=== PATIENT | male | born 1945 | race Caucasian/White ===

== ENCOUNTER 2019-11-10 12:20 | Emergency (ER) | payer MEDICARE, SELFPAY ==
[2019-11-10 12:27] VITALS: BP 149/88; PULSE 101; RESP 20; TEMP 36.5; O2SAT 94; BMI 29.1
--- NOTE | 2019-11-10 12:45 | ED_ITS ---
Entered by Ania Fagan, acting as scribe for Nov 10, 2019 12:20 HPI - SOB/Dyspnea General: Chief Complaint: General Medical Stated Complaint: sob/welling pockets??? Time Seen by Provider: 11/10/19 12:46 History of Present Illness: HPI Narrative: 74 yo male presents with shortness of breath. Pt states that he also has abd pain and headache. Pt states that when he goes to sleep at night he will wake up every 2 hours drenched in sweat. Pt states that he was placed on Zantac and got a letter of recall. Pt states that he has been getting chest pain everyday for the past few months. Pt states that he quit taking Zantac. Pt states that he quit taking his medication for his diabetes 3 days ago. Pt states that he has headaches, swelling bumps on his arms, bumps in his mouth and ear pain. Associated symptoms: Reports abdominal pain, chest pain, nausea and vomiting; Deny dizziness, extremity pain, fever(s), orthopnea, palpitations, polydipsia, polyuria or syncope Review of Systems Const: Reports: malaise; Denies: fever, chills, body aches or fatigue Eyes: Denies: change in vision or blurry vision ENMT: Denies: throat pain, oral sores/lesions, dental pain, nasal discharge or nasal congestion Card: Reports: chest pain; Denies: palpitations, irregular heart rhythm, edema, syncope, shortness of breath on exertion, shortness of breath when lying down or leg pain with exertion Resp: Denies: shortness of breath, productive cough, non-productive cough or wheezing GI: Reports: abdominal pain, nausea and vomiting; Denies: vomiting blood, coffee grounds in vomit, difficulty swallowing, heartburn/indigestion, diarrhea, constipation, cramping, blood in stool or black tarry stool : Denies: flank pain, difficulty urinating, painful urination, urinary frequency, urinary urgency, urinary incontinence or blood in urine Musc: Denies: neck pain, back pain, extremity pain, extremity swelling, joint pain or joint swelling Skin/Breast: Denies: rash, itching or redness Neuro: Denies: headache, numbness in extremities, weakness in extremities, changes in sensation, lack of coordination, difficulty walking, frequent falls, dizziness, vertigo or confusion Psych: Denies: anxiety, depression, loss of interest, visual hallucinations, auditory hallucinations, suicidal ideation or homicidal ideation Endo: Denies: excessive urination, excessive thirst, tired all the time or cold intolerance [place]/Lymph: Denies: easy bruising, easy bleeding, petechiae, enlarged lymph nodes or tender lymph nodes PFSH ED PFSH: Statuses (acute, chronic, etc) shown below reflect problem list status as previously entered and may not be historically accurate Medical History COPD (chronic obstructive pulmonary disease) (Acute) Diabetes (Acute) Hypertension (Acute) Surgical History H/O hemorrhoidectomy (Acute) H/O hernia repair (Acute) History of carpal tunnel surgery of right wrist (Acute) History of cholecystectomy (Acute) History of testicular surgery (Acute) Hx of tonsillectomy (Acute) Social History Smoking and tobacco status: current every day smoker Physical Exam Const: COMMON NORMALS: average body habitus, oriented x3 and alert GENERAL APPEARANCE: cooperative, comfortable, well kempt and well developed NUTRITIONAL APPEARANCE: not obese ORIENTATION/CONSCIOUSNESS: Yes awake, Yes oriented to person and Yes oriented to place HENMT: COMMON NORMALS: normocephalic, head/scalp atraumatic, EAC's normal, TM's normal bilaterally, external nose normal, moist oral mucous membranes and oropharynx normal HEAD & SCALP: normocephalic and atraumatic NOSE: external nose normal EXTERNAL AUDITORY CANAL: EAC's normal TYMPANIC MEMBRANE: TM's normal bilaterally MOUTH: oral and palatal mucosa normal, lip normal and tongue normal THROAT: posterior oropharynx normal and tonsils normal Eye: COMMON NORMALS: PERRL, EOMs intact bilaterally, conjunctivae normal and no scleral icterus CONJUNCTIVA: Yes conjunctivae normal PUPIL: Yes PERRL Neck/C-Spine: COMMON NORMALS: full ROM, no lymphadenopathy, supple, no meningeal signs and thyroid normal THYROID: thyroid normal and asymmetrical Lymph: LYMPHATIC: no lymphadenopathy noted Resp: COMMON NORMALS: normal respiratory effort, no retractions, no use of accessory muscles and clear to auscultation bilaterally AUSCULTATION: clear to auscultation bilaterally Cardio: COMMON NORMALS: regular rate and regular rhythm RATE: regular rate RHYTHM: regular rhythm HEART SOUNDS: no murmurs GI: COMMON NORMALS: normal to inspection, nondistended, normoactive bowel sounds, soft to palpation and no hepatosplenomegaly PALPATION: Yes soft and Yes no hepatosplenomegaly : COMMON NORMALS: Yes no CVA tenderness BLADDER/KIDNEY EXAM: Yes no CVA tenderness Back/Pelvis: COMMON NORMALS: no CVA tenderness LUMBAR SPINE/LOWER BACK: Yes normal to inspection Extremity: COMMON NORMALS: no clubbing, cyanosis or edema, no calf tenderness and no pedal edema Neuro: COMMON NORMALS: oriented x3 SENSORIUM/ORIENTATION: Yes alert, Yes oriented to person and Yes oriented to place MENINGEAL SIGNS: Yes no meningeal signs Psych: APPEARANCE: Yes well kempt Skin: COMMON NORMALS: no rashes or lesions noted and skin turgor normal GENERAL SKIN EXAM: no rashes or lesions noted and turgor normal Course ED course: Reviewed the findings with patient. He think there is something underlying going on there is nothing acute doing fine at this time I think he does need to be seen by internal medicine have been further evaluation strongly encouraged him to follow-up with his primary care doctor offered to set him up with internal medicine through [facility] [place]. He had hoped to be admitted to have what ever endoscopy and what ever testing done immediately. Reviewed with him that there really was not anything at this point that would require admission but there are further testing that needs to be done offered him referral he declined to follow-up with his primary care doctor return if he has problems Vital Signs: Vital signs: Vital Signs Temperature 97.7 F 11/10/19 12:27 Pulse Rate 700 H 11/10/19 16:42 Respiratory Rate 14 11/10/19 16:42 Blood Pressure 148/85 11/10/19 16:42 Pulse Oximetry 97 11/10/19 16:42 MDM - SOB/Dyspnea Lab Data: Labs: Lab Results 11/10/19 11/10/19 11/10/19 Range/Units 13:42 13:42 13:42 WBC 8.6 (4.0-10.0) 10^3/ uL RBC 4.95 (4.1-5.3) 10^6/u L Hgb 15.8 (11.7-16.6) g/dL Hct 45.9 (42.0-52.0) % MCV 92.7 (80-94) fL MCH 31.9 (28.0-34.0) pg MCHC 34.4 (30.0-36.0) g/dL RDW 12.7 (12.1-15.1) % Plt Count 232 (130-400) 10^3/c mm MPV 10.1 (7.4-10.4) fL Neut % (Auto) 73.1 % Lymph % (Auto) 15.6 % Dukes % (Auto) 8.6 % Eos % (Auto) 2.1 % Baso % (Auto) 0.4 % Neut # (Auto) 6.3 (1.8-7.7) 10^3/u L Lymph # (Auto) 1.3 (0.8-4.8) 10^3/u L Dukes # (Auto) 0.7 (0.2-0.9) 10^3/u L Eos # (Auto) 0.2 (0.0-0.8) 10^3/u L Baso # (Auto) 0.0 (0.0-0.1) 10^3/u L Nucleated RBC % (a uto) 0 % Nucleated RBCs # 0.0 /100WBC Sodium 137 (136-145) mmol/L Potassium 4.1 (3.5-5.1) mmol/L Chloride 96 L (98-107) mmol/L Carbon Dioxide 32 H (22-29) mmol/L Anion Gap 13.1 (5-19) BUN 16 (8-23) mg/dL Creatinine 0.9 (0.7-1.2) mg/dL Glucose 137 H (74-106) mg/dL Calcium 10.0 (8.8-10.2) mg/Dl Total Bilirubin 0.5 (0.15-1.2) mg/dL AST 12 (0-40) U/L ALT 7 (0-41) U/L Alkaline Phosphata se 77 (40-130) IU/L Troponin T Baselin e 15 (0-15) ng/mL Troponin T [address] [place] (0-15) ng/mL Delta Troponin T (0-10) ABS# Total Protein 7.0 (6.6-8.7) g/dL Albumin 4.1 (3.5-5.2) g/dL Globulin 2.9 (1.3-4.6) g/dL Lipase 7 L (13-60) U/L Urine Color (Yellow) Urine Appearance (CLEAR) Urine pH (5-7) Ur Specific Gravit y (1.005-1.030) Urine Protein (Negative) Urine Glucose (UA) (Normal) Urine Ketones (Negative) Urine Occult Blood (Negative) Urine Nitrate (Negative) Urine Bilirubin (NEGATIVE) Urine Urobilinogen (Negative) mg/dL Ur Leukocyte Shama ase (Negative) Urine RBC (0-2) /hpf Urine WBC (0-5) /hpf Ur Squamous Epith Cells (0-5) Urine Bacteria (NONE) Urine Mucus 11/10/19 11/10/19 Range/Units 13:50 15:45 WBC (4.0-10.0) 10^3/ uL RBC (4.1-5.3) 10^6/u L Hgb (11.7-16.6) g/dL Hct (42.0-52.0) % MCV (80-94) fL MCH (28.0-34.0) pg MCHC (30.0-36.0) g/dL RDW (12.1-15.1) % Plt Count (130-400) 10^3/c mm MPV (7.4-10.4) fL Neut % (Auto) % Lymph % (Auto) % Dukes % (Auto) % Eos % (Auto) % Baso % (Auto) % Neut # (Auto) (1.8-7.7) 10^3/u L Lymph # (Auto) (0.8-4.8) 10^3/u L Dukes # (Auto) (0.2-0.9) 10^3/u L Eos # (Auto) (0.0-0.8) 10^3/u L Baso # (Auto) (0.0-0.1) 10^3/u L Nucleated RBC % (a uto) % Nucleated RBCs # /100WBC Sodium (136-145) mmol/L Potassium (3.5-5.1) mmol/L Chloride (98-107) mmol/L Carbon Dioxide (22-29) mmol/L Anion Gap (5-19) BUN (8-23) mg/dL Creatinine (0.7-1.2) mg/dL Glucose (74-106) mg/dL Calcium (8.8-10.2) mg/Dl Total Bilirubin (0.15-1.2) mg/dL AST (0-40) U/L ALT (0-41) U/L Alkaline Phosphata se (40-130) IU/L Troponin T Baselin e (0-15) ng/mL Troponin T [address] [place] 13.53 (0-15) ng/mL Delta Troponin T -1.47 L (0-10) ABS# Total Protein (6.6-8.7) g/dL Albumin (3.5-5.2) g/dL Globulin (1.3-4.6) g/dL Lipase (13-60) U/L Urine Color Yellow (Yellow) Urine Appearance Clear (CLEAR) Urine pH 5.0 (5-7) Ur Specific Gravit y 1.025 (1.005-1.030) Urine Protein Trace (Negative) Urine Glucose (UA) Norm (Normal) Urine Ketones Negative (Negative) Urine Occult Blood Neg (Negative) Urine Nitrate Negative (Negative) Urine Bilirubin Neg (NEGATIVE) Urine Urobilinogen 1 H (Negative) mg/dL Ur Leukocyte Shama ase Negative (Negative) Urine RBC 0-4 H (0-2) /hpf Urine WBC Rare (0-5) /hpf Ur Squamous Epith Cells 0-4 H (0-5) Urine Bacteria Trace (NONE) Urine Mucus 1+ Imaging Data^: CXR: Radiologist's impression: Patient: Jeremías Edouard Unit #: [id number] : 1945 Age/Sex: 74 / M ADM Date: 11/10/19 Loc: ER Room/Bed: Attending Dr: Ordering Provider/Ordering MD: Uriel Velasco DO Date of Service: 11/10/19 Procedure(s): XR chest 1V portable [id number] Accession Number(s): [id number] Report Number: [id number] WS: [id number] PORTABLE CHEST HISTORY: chest pain COMPARISON: 07/28/2019 Pulmonary hyperexpansion with no pneumonia. Subsegmental linear scarring at the lung bases. Similar to the prior study. No pleural effusion or pneumothorax. Cardiac size: Normal. Mediastinum/Aorta: Mild atherosclerosis aorta. RIGHT convex curvature thoracic spine. XR/XR chest 1V portable [id number] IMPRESSION: Chronic emphysema. No acute cardiopulmonary disease. Dictated By: Carmen Brar DO Signed By: Carmen Brar DO Signed Date/Time: 11/10/191351 DD/ 51 Discharge Plan Discharge Patient Disposition: Home, Self-Care Clinical Impression: Chest pain, atypical, Diabetes, COPD (chronic obstructive pulmonary disease), Hypertension, Gastroesophageal reflux disease Condition: Stable Prescriptions: New omeprazole 20 mg capsule,delayed release(DR/EC) 20 mg PO DAILY 28 Days RF: 1 Discontinued ranitidine HCl [Zantac] 150 mg Tablet 150 mg PO BID RF: 0 No Action albuterol sulfate 2.5 mg /3 mL (0.083 %) Solution For Nebulization 2.5 mg INHALATION Q4H PRN (Reason: Shortness Of Breath) RF: 0 [place] 10-325 mg Tablet See Rx Instructions .ROUTE .COMPLEX RF: 0 Aspir-81 81 mg Tablet,Delayed Release (Dr/Ec) 81 mg PO DAILY RF: 0 Flomax 0.4 mg Capsule 0.4 mg PO DAILY RF: 0 Advair Diskus 500-50 mcg/dose Blister With Device 1 inh INHALATION BID RF: 0 Colace 100 mg Capsule 200 mg PO DAILY RF: 0 Singulair 10 mg Tablet 10 mg PO BEDTIME RF: 0 pravastatin 20 mg Tablet 20 mg PO DAILY RF: 0 Miralax 17 gram/dose Powder 17 g PO DAILY PRN (Reason: Constipation) RF: 0 glipizide 5 mg Tablet 5 mg PO BID RF: 0 Januvia 50 mg Tablet 50 mg PO DAILY RF: 0 Combivent Respimat 20-100 mcg/actuation Mist 1 puff INHALATION Q6H PRN (Reason: Shortness Of Breath) RF: 0 Discharge Orders: Discharge Order (Routine); Ordered 11/10/19 Ordered By: Uriel Velasco Referrals: Cornelia Ayala DO [Family Provider] - Discharge Diet: Advance as tolerated Discharge Activity: Increase activity as tolerated Activity Restrictions/Additional Instructions: Management will call to set up a stress test. Stop Zantac start Prilosec follow-up with your regular doctor for further testing including potential endoscopy. Discharge Date/Time: 11/10/19 16:43 Coding Level of Care Code ED Channel Marketing Program Manager for Chg Fwd Exam Problem Focused The documentation recorded by the Rylan sheldon Kialy, accurately reflects the service I personally performed and the decisions made by , Uriel Velasco, Nov 10, 2019 12:20
--- NOTE | 2019-11-10 13:31 | XR_ITS ---
WS: [id number] PORTABLE CHEST HISTORY: chest pain COMPARISON: 07/28/2019 Pulmonary hyperexpansion with no pneumonia. Subsegmental linear scarring at the lung bases. Similar t o the prior study. No pleural effusion or pneumothorax. Cardiac size: Normal. Mediastinum/Aorta: Mild atherosclerosis aorta. RIGHT convex curvature thoracic spine. XR/XR chest 1V portable [id number] IMPRESSION: Chronic emphysema. No acute cardiopulmonary disease.
--- NOTE | 2019-11-10 13:32 | ECG_ITS ---
Measurements Intervals [place] Rate: 73 P: 75 SD: 175 QRS: 78 QRSD: 107 T: 76 QT: 334 QTc: 369 SINUS RHYTHM EARLY REPOLARIZATION [ST ELEVATION WITH NORMALLY INFLECTED T WAVE] Compared to ECG 07/05/2019 16:53:02 Early repolarization now present Atrial abnormality no longer present ST (T wave) deviation no longer present Electronically Signed On 11-10-2019 17:25:53 HOTEL SERVER by Cecil Lu M.D. [id number]
--- NOTE | 2019-11-10 13:45 | PC.NURSE ---
Patient attempting to collect urine sample.
--- NOTE | 2019-11-10 13:47 | PC.NURSE ---
X-ray at bedside for portable chest
[2019-11-10 13:49] LABS: Basophils % 0.4 %; Eosinophils # 0.2 10^3/uL (0.0-0.8); Eosinophils % 2.1 %; Hematocrit 45.9 % (42.0-52.0); Hemoglobin 15.8 g/dL (11.7-16.6); Lymphocytes # 1.3 10^3/uL (0.8-4.8); Lymphocytes % 15.6 %; Mean Corpuscular HGB Conc 34.4 g/dL (30.0-36.0); Mean Corpuscular Hemoglobin 31.9 pg (28.0-34.0); Mean Corpuscular Volume 92.7 fL (80-94); Mean Platelet Volume 10.1 fL (7.4-10.4); Monocytes # 0.7 10^3/uL (0.2-0.9); Monocytes % 8.6 %; Neutrophils # 6.3 10^3/uL (1.8-7.7); Neutrophils % 73.1 %; Nucleated Red Blood Cells % 0 %; Platelet Count 232 10^3/cmm (130-400); Red Blood Count 4.95 10^6/uL (4.1-5.3); Red Cell Distribution Width 12.7 % (12.1-15.1); White Blood Count 8.6 10^3/uL (4.0-10.0)
[2019-11-10 14:08] LABS: Alanine Aminotransferase 7 U/L (0-41); Albumin Level 4.1 g/dL (3.5-5.2); Alkaline Phosphatase 77 IU/L (40-130); Anion Gap 13.1 (5-19); Aspartate Amino Transferase 12 U/L (0-40); Blood Urea Nitrogen 16 mg/dL (8-23); Carbon Dioxide 32 mmol/L (22-29); Chloride 96 mmol/L (98-107); Globulin 2.9 g/dL (1.3-4.6); Glucose 137 mg/dL (74-106); Lipase 7 U/L (13-60); Potassium 4.1 mmol/L (3.5-5.1); Sodium 137 mmol/L (136-145); Total Bilirubin 0.5 mg/dL (0.15-1.2)
[2019-11-10 14:10] LABS: Troponin(5th) Baseline 15 ng/mL (0-15)
[2019-11-10 14:18] LABS: Add Urine Microscopic? YES; Bilirubin Urine Neg (NEGATIVE); Blood Urine Neg (Negative); Glucose Urine UA Norm (Normal); Ketones Urine Negative (Negative); Leukocyte Esterase Urine Negative (Negative); Nitrate Urine Negative (Negative); Protein Urine Trace (Negative); Specific Gravity, Urine 1.025 (1.005-1.030); Urine Appearance Clear (CLEAR); Urine Color Yellow (Yellow); Urobilinogen Urine 1 mg/dL (Negative)
[2019-11-10 14:35] VITALS: BP 125/69; PULSE 76; O2SAT 93
[2019-11-10 14:39] LABS: Add Urine Culture? No; Bacteria Urine TRACE; Mucus Urine 1+; RBC Urine 0-4 /hpf (0-2); Squamous Epithelial Cell Urine 0-4 (0-5); WBC Urine RARE /hpf (0-5)
[2019-11-10 16:05] LABS: Troponin 5 2HR 13.53 ng/mL (0-15)
[2019-11-10 16:29] LABS: Troponin 5 2HR Delta -1.47 ABS# (0-10)
[2019-11-10 16:42] VITALS: BP 148/85; PULSE 700; RESP 14; O2SAT 97
--- NOTE | 2019-11-11 11:21 | DCPLANNER ---
manager target had message to schedule an out patient stress test for patient. manager target called patient to confirm that patient still wanted to have stress test ordered and to confirm who patient sees for primary care. Patient stated that he was on his way to see his primary care physician, and that he is going to speak with his physician to see if his physician wants him to have the stress test. Patient stated that if his primary care physician wants him to have a stress test that he will have her order it.
== END 2019-11-10 16:43 | disposition home or self-care (01) ==
PROVIDERS: Emergency Provider Family Medicine; Family Provider Family Medicine
DX: R07.89 Other chest pain (principal); E11.9 Type 2 diabetes mellitus without complications; J44.9 Chronic obstructive pulmonary disease, unspecified; I10 Essential (primary) hypertension; K21.9 Gastro-esophageal reflux disease without esophagitis; Z79.82 Long term (current) use of aspirin; Z79.84 Long term (current) use of oral hypoglycemic drugs; F17.210 Nicotine dependence, cigarettes, uncomplicated
CPT/HCPCS: 36415; 71045; 80053; 81003; 83690; 84484; 85025; 93005; 99281; A9270

== ENCOUNTER → 2020-09-06 15:44 | Outpatient (BNVA) | payer MEDICARE, SELFPAY | PROVIDERS: Family Provider Family Medicine; Referring Provider Registered Nurse; Visit Provider Specialist | DX: M19.031 Primary osteoarthritis, right wrist (principal); M25.531 Pain in right wrist | CPT/HCPCS: 73110 ==

== ENCOUNTER 2020-10-09 09:34 | Emergency (ER) | payer MEDICARE, SELFPAY ==
[2020-10-09 09:40] VITALS: BP 138/79; PULSE 93; RESP 24; TEMP 36.2; O2SAT 94; BMI 31.7
--- NOTE | 2020-10-09 09:55 | W.ED.SOB ---
HPI - SOB/Dyspnea General: Chief Complaint: Shortness of Breath/Dyspnea Stated Complaint: SOB Time Seen by Provider: 10/09/20 09:55 Source: patient Mode of arrival: ambulatory Limitations: no limitations History of Present Illness: HPI Narrative: Patient comes in today for shortness of breath at night for the last 2 days. Patient appears in minimal distress at this time. Patient appears no pain. Patient has to take hydrocodone routinely for his back chronic pain. Patient does have a history of COPD. Patient reports some nasal drainage. Patient appears well. MD elicited complaint: shortness of breath Review of Systems General: Reports: 10 or more systems reviewed and unremarkable except in HPI and below Resp: Reports: dyspnea PFSH ED PFSH: Medical History (Updated 10/09/20 @ 11:54 by ARYAN Robertson) COPD (chronic obstructive pulmonary disease) Diabetes Hypertension Surgical History H/O hemorrhoidectomy H/O hernia repair History of carpal tunnel surgery of right wrist History of cholecystectomy History of testicular surgery Hx of tonsillectomy Social History (Updated 10/09/20 @ 09:46 by Sadi Veloz RN) Smoking and tobacco status: current every day smoker cigarettes Packs smoked per day: 0.5 Alcohol intake: never Substance/Drug Use: never Physical Exam Const: COMMON NORMALS: no acute distress and patient oriented x3 GENERAL APPEARANCE: cooperative HENMT: COMMON NORMALS: normocephalic, TM's normal bilaterally and Normal external nose present HEAD & SCALP: normal to inspection and normocephalic NOSE: Normal external nose present TYMPANIC MEMBRANE: TM's normal bilaterally MOUTH: Normal oral and palatal mucosa present THROAT: posterior oropharynx normal Eye: GENERAL EYE: appearance normal, both eyes and all related structures Neck/C-Spine: COMMON NORMALS: full ROM Lymph: LYMPHATIC: no lymphadenopathy noted Chest: COMMONS NORMALS: normal inspection of the chest Resp: COMMON NORMALS: normal respiratory effort EFFORT & INSPECTION: Yes able to speak in complete sentences AUSCULTATION: diminished lung sounds Cardio: COMMON NORMALS: regular rate and regular rhythm RATE: regular rate RHYTHM: regular rhythm GI: COMMON NORMALS: non-tender Back/Pelvis: COMMON NORMALS: thoracic and lumbar spine normal to inspection Extremity: COMMON NORMALS: normal to inspection Neuro: COMMON NORMALS: patient oriented x3 and moves all extremities Psych: COMMON NORMALS: mental status grossly normal and cooperative Skin: COMMON NORMALS: no rashes or lesions noted GENERAL SKIN EXAM: no rashes or lesions noted Course Vital Signs: Vital signs: Vital Signs Temperature 97.2 F L 10/09/20 09:40 Pulse Rate 81 10/09/20 12:27 Respiratory Rate 21 H 10/09/20 12:27 Blood Pressure 121/73 10/09/20 12:27 Pulse Oximetry 100 10/09/20 12:27 MDM - SOB/Dyspnea MDM Narrative: Medical decision making narrative: Patient came in to be evaluated for increased shortness of breath at nighttime. Patient appears well. Patient does appear generalized weakness. Skin was warm and dry. Vital signs were normal. Differential diagnosis includes exacerbation of COPD, pneumonia, anxiety. Laboratory values were unremarkable. COVID-19 testing was negative. Chest x-ray showed emphysema. Suspect patient has some mild exacerbation of his COPD. We will give him a short burst of steroid to cover for it. Reviewed exam and treatment with patient who agreed to plan. Lab Data: Labs: Lab Results 10/09/20 10/09/20 10/09/20 Range/Units 10:30 10:30 10:30 WBC 7.7 (4.0-10.0) 10^3/ uL RBC 4.83 (4.1-5.3) 10^6/u L Hgb 15.0 (11.7-16.6) g/dL Hct 44.6 (42.0-52.0) % MCV 92.3 (80-94) fL MCH 31.1 (28.0-34.0) pg MCHC 33.6 (30.0-36.0) g/dL RDW 13.2 (12.1-15.1) % Plt Count 199 (130-400) 10^3/c mm MPV 10.4 (7.4-10.4) fL Neut % (Auto) 68.1 % Lymph % (Auto) 15.8 % [place] % (Auto) 10.0 % Eos % (Auto) 5.3 % Baso % (Auto) 0.5 % Neut # (Auto) 5.26 (1.8-7.7) 10^3/u L Lymph # (Auto) 1.2 (0.8-4.8) 10^3/u L [place] # (Auto) 0.8 (0.2-0.9) 10^3/u L Eos # (Auto) 0.4 (0.0-0.8) 10^3/u L Baso # (Auto) 0.0 (0.0-0.1) 10^3/u L Nucleated RBC % (a uto) 0 % Nucleated RBCs # 0.0 /100WBC Sodium 139 (136-145) mmol/L Potassium 4.1 (3.5-5.1) mmol/L Chloride 101 (98-107) mmol/L Carbon Dioxide 32 H (22-29) mmol/L Anion Gap 10.1 (5-19) BUN 8 (8-23) mg/dL Creatinine 0.6 L (0.7-1.2) mg/dL GFR Calculation Not Reportable Glucose 95 (65-115) mg/dL Calculated Osmolal ity 286 (285-295) mOsm/k g Calcium 9.3 (8.5-10.5) mg/dL Total Bilirubin 0.4 (0.15-1.2) mg/dL AST 11 (0-40) U/L ALT 8 (0-41) U/L Alkaline Phosphata se 72 (40-130) IU/L Troponin T Gen 5 n g/L 12 (0-15) ng/L NT-Pro-B Natriuret Pep 44 (0-125) pg/mL Total Protein 6.2 L (6.6-8.7) g/dL Albumin 4.0 (3.5-5.2) g/dL Globulin 2.2 (1.3-4.6) g/dL SARS-CoV-2 Ag (Rap id) (Negative) 10/09/20 Range/Units 10:55 WBC (4.0-10.0) 10^3/ uL RBC (4.1-5.3) 10^6/u L Hgb (11.7-16.6) g/dL Hct (42.0-52.0) % MCV (80-94) fL MCH (28.0-34.0) pg MCHC (30.0-36.0) g/dL RDW (12.1-15.1) % Plt Count (130-400) 10^3/c mm MPV (7.4-10.4) fL Neut % (Auto) % Lymph % (Auto) % [place] % (Auto) % Eos % (Auto) % Baso % (Auto) % Neut # (Auto) (1.8-7.7) 10^3/u L Lymph # (Auto) (0.8-4.8) 10^3/u L [place] # (Auto) (0.2-0.9) 10^3/u L Eos # (Auto) (0.0-0.8) 10^3/u L Baso # (Auto) (0.0-0.1) 10^3/u L Nucleated RBC % (a uto) % Nucleated RBCs # /100WBC Sodium (136-145) mmol/L Potassium (3.5-5.1) mmol/L Chloride (98-107) mmol/L Carbon Dioxide (22-29) mmol/L Anion Gap (5-19) BUN (8-23) mg/dL Creatinine (0.7-1.2) mg/dL GFR Calculation Glucose (65-115) mg/dL Calculated Osmolal ity (285-295) mOsm/k g Calcium (8.5-10.5) mg/dL Total Bilirubin (0.15-1.2) mg/dL AST (0-40) U/L ALT (0-41) U/L Alkaline Phosphata se (40-130) IU/L Troponin T Gen 5 n g/L (0-15) ng/L NT-Pro-B Natriuret Pep (0-125) pg/mL Total Protein (6.6-8.7) g/dL Albumin (3.5-5.2) g/dL Globulin (1.3-4.6) g/dL SARS-CoV-2 Ag (Rap id) Negative (Negative) EKG Data^: EKG 1: Attestation: I personally reviewed and interpreted this EKG as follows: (1010, EKG normal sinus rhythm, regular rate 88 bpm, no ectopy or ST elevation. No prior exam is noted at this time.) Discharge Plan Discharge Patient Disposition: Home Clinical Impression: COPD (chronic obstructive pulmonary disease) Qualifiers: COPD type: COPD with acute exacerbation Qualified Code(s): J44.1 - Chronic obstructive pulmonary disease with (acute) exacerbation Condition: Stable Prescriptions: New prednisone 20 mg tablet 20 mg PO DAILY 5 Days Qty: 5 RF: 0 No Action albuterol sulfate 2.5 mg /3 mL (0.083 %) Solution For Nebulization 2.5 mg INHALATION Q4H PRN (Reason: Shortness Of Breath) RF: 0 [place] 10-325 mg Tablet See Rx Instructions .ROUTE .COMPLEX RF: 0 Aspir-81 81 mg Tablet,Delayed Release (Dr/Ec) 81 mg PO DAILY RF: 0 Flomax 0.4 mg Capsule 0.4 mg PO DAILY RF: 0 Advair Diskus 500-50 mcg/dose Blister With Device 1 inh INHALATION BID RF: 0 Colace 100 mg Capsule 200 mg PO DAILY RF: 0 Singulair 10 mg Tablet 10 mg PO BEDTIME RF: 0 pravastatin 20 mg Tablet 20 mg PO DAILY RF: 0 Miralax 17 gram/dose Powder 17 g PO DAILY PRN (Reason: Constipation) RF: 0 glipizide 5 mg Tablet 5 mg PO BID RF: 0 Januvia 50 mg Tablet 50 mg PO DAILY RF: 0 Combivent Respimat 20-100 mcg/actuation Mist 1 puff INHALATION Q6H PRN (Reason: Shortness Of Breath) RF: 0 omeprazole 20 mg capsule,delayed release(DR/EC) 20 mg PO DAILY 28 Days RF: 1 Discharge Orders: Discharge ED (Routine); Ordered 10/09/20 Ordered By: Savage Wallace Referrals: Cornelia Ayala DO [Family Provider] - Discharge Diet: Usual diet Discharge Activity: Increase activity as tolerated Patient Instructions: Chronic Obstructive Pulmonary Disease (ED) Activity Restrictions/Additional Instructions: Activity as tolerated. Take medications as directed. Drink plenty of fluids with medication. You may notice the increase in your blood sugar due to the prednisone. Try to avoid added sweets and sugars in your diet while on prednisone. Follow-up with primary care as needed. Return to the emergency department for worsening symptoms. Coding Level of Care Code ED Church Business Administrator for Jf Fwjarad Exam Comprehensive
--- NOTE | 2020-10-09 09:56 | ECG_ITS ---
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 Measurements Intervals [place] Rate: 88 P: 69 VT: 161 QRS: 64 QRSD: 98 T: 64 QT: 319 QTc: 387 Interpretive Statements SINUS RHYTHM Compared to ECG 11/10/2019 15:04:36 Early repolarization no longer present Electronically Signed On 10-09-2020 21:58:00 CATTLE DEHORNER by Vanessa Fontana M.D. [email or web address]
--- NOTE | 2020-10-09 09:56 | XRR_ITS ---
PROCEDURE INFORMATION: Exam: XR Chest, 1 View Exam date and time: 10/09/2020 10:31 AM Age: 75 years old Clinical indication: Shortness of breath; Additional info: Short of breath TECHNIQUE: Imaging protocol: XR of the chest Views: 1 view. COMPARISON: CR XR chest 1V portable [id number] 11/10/2019 1:59 PM FINDINGS: Lungs: The lungs are overinflated consistent with emphysema. Interstitial prominence in the lung bases is consistent with fibrosis. No pneumonia is seen. Pleural space: Unremarkable. No pleural effusion. No pneumothorax. Heart/Mediastinum: Unremarkable. No cardiomegaly. Bones/joints: Unremarkable. XR/XR chest 1V portable [id number] IMPRESSION: Pulmonary emphysema. No acute abnormality.
[2020-10-09 10:35] VITALS: BP 132/62; PULSE 73; RESP 20; O2SAT 92
[2020-10-09 10:51] LABS: Basophils % 0.5 %; Eosinophils # 0.4 10^3/uL (0.0-0.8); Eosinophils % 5.3 %; Hematocrit 44.6 % (42.0-52.0); Lymphocytes # 1.2 10^3/uL (0.8-4.8); Lymphocytes % 15.8 %; Mean Corpuscular HGB Conc 33.6 g/dL (30.0-36.0); Mean Corpuscular Hemoglobin 31.1 pg (28.0-34.0); Mean Corpuscular Volume 92.3 fL (80-94); Mean Platelet Volume 10.4 fL (7.4-10.4); Monocytes # 0.8 10^3/uL (0.2-0.9); Neutrophils # 5.26 10^3/uL (1.8-7.7); Neutrophils % 68.1 %; Nucleated Red Blood Cells % 0 %; Platelet Count 199 10^3/cmm (130-400); Red Blood Count 4.83 10^6/uL (4.1-5.3); Red Cell Distribution Width 13.2 % (12.1-15.1); White Blood Count 7.7 10^3/uL (4.0-10.0)
[2020-10-09 11:09] LABS: Troponin T (5th) Once 12 ng/L (0-15)
[2020-10-09 11:18] LABS: Alanine Aminotransferase 8 U/L (0-41); Alkaline Phosphatase 72 IU/L (40-130); Anion Gap 10.1 (5-19); Aspartate Amino Transferase 11 U/L (0-40); Blood Urea Nitrogen 8 mg/dL (8-23); Calcium 9.3 mg/dL (8.5-10.5); Carbon Dioxide 32 mmol/L (22-29); Chloride 101 mmol/L (98-107); Globulin 2.2 g/dL (1.3-4.6); Glucose 95 mg/dL (65-115); NT Pro B Type Natriuretic Pept 44 pg/mL (0-125); Osmolality Calculated 286 mOsm/kg (285-295); Potassium 4.1 mmol/L (3.5-5.1); Sodium 139 mmol/L (136-145); Total Bilirubin 0.4 mg/dL (0.15-1.2); Total Protein 6.2 g/dL (6.6-8.7)
[2020-10-09 11:49] VITALS: BP 121/73; PULSE 81; RESP 21; O2SAT 100
[2020-10-09 12:05] LABS: SARS Covid-2 Antigen Negative (Negative)
[2020-10-09 12:27] VITALS: BP 121/73; PULSE 81; RESP 21; O2SAT 100
[2020-10-09] MEDS: predniSONE 20 mg Tablet 40 MG PO (12:27)
== END 2020-10-09 12:28 | disposition home or self-care (01) ==
LOC: ER 12:51
PROVIDERS: Emergency Provider Nurse Practitioner Family; PCP Family Medicine
DX: J44.1 Chronic obstructive pulmonary disease with (acute) exacerbation (principal); Z79.82 Long term (current) use of aspirin; E11.9 Type 2 diabetes mellitus without complications; I10 Essential (primary) hypertension; Z79.84 Long term (current) use of oral hypoglycemic drugs; F17.210 Nicotine dependence, cigarettes, uncomplicated
CPT/HCPCS: 12345; 71045; 80053; 83880; 84484; 85025; 87426; 93005; 99283; J7512

== ENCOUNTER → 2020-11-01 10:29 | Outpatient (BNVA) | payer MEDICARE, SELFPAY | PROVIDERS: PCP Family Medicine; Visit Provider Specialist | DX: G56.01 Carpal tunnel syndrome, right upper limb (principal); G56.11 Other lesions of median nerve, right upper limb; G56.21 Lesion of ulnar nerve, right upper limb; F17.210 Nicotine dependence, cigarettes, uncomplicated | CPT/HCPCS: 95885; 95886; 95908 ==

== ENCOUNTER 2020-11-03 08:48 | Outpatient (CLI) | payer MEDICARE, SELFPAY ==
--- NOTE | 2020-11-03 09:42 | ECG_ITS ---
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 Interpretive Statements NAME OF STUDY: LEXISCAN SESTAMIBI STRESS TEST INDICATION: Chest Pain, PROCEDURE: At the baseline, the EKG revealed normal sinus rhythm with normal ST-T's. The baseline blood pressure was 141/78 mm Hg with a heart rate of 91 beats/min. Lexiscan was infused over a period of 20 seconds. A total of 0.4 milligrams of Lexiscan was infused. The stress phase was continued for a total of 5 minutes. Heart rate at the end of the stress phase was 100 with a blood pressure 144/70. The EKG at the peak infusion revealed no significant changes. Sestamibi was injected 20 seconds after the Lexiscan infusion. Blood pressure at the end of the recovery phase was 134/74 with a heart rate of 99 per minute. CONCLUSION: 1. No significant EKG changes with the LexiScan infusion 2. No LexiScan induced chest pain or cardiac arrhythmia 3. Normal blood pressure and heart rate response 4. Sestamibi/sestamibi perfusion scan pending; see separate report. Electronically Signed On 11-03-2020 20:33:59 TRANSMISSION SUPERVISOR by Eulogio Ortiz M.D. [id number]
--- NOTE | 2020-11-03 09:42 | NMCV_ITS ---
NM darron perf SPECT r/s* [id number] Jeremías Edouard Age: 75 Gender: M : 1945 Exam Date: 11/03/2020 10:37 Ordering Phys: Cornelia Ayala DO Technologist: GT Pearson Exam Location: [facility] Indications: OTHER CHEST PAIN STRESS TEST Please see separate stress test report in [facility] for full findings IMAGE PROTOCOL Rest/Stress 1 Lexiscan Day Radiopharmaceutical Dose (mCi) Administration Site Administered by Rest: Tc-99m 11.0 IV GT Schulte Sestamibi Stress:Tc-99m 33.0 IV GT Pearson Sestamileyda Rest: 03-Nov-2020 60 Discovery 630 Stress: 03-Nov-2020 30 Discovery 630 0.4mg Lexiscan. Supine position only as patient was unable to lay prone. SPECT RESULTS Technical Quality: Good Raw Data Analysis: Normal Image Corrections: No attenuation or motion correction applied Summed Stress Score: 4 Summed Rest Score: 8 Summed Difference Score: 0 PERFUSION FINDINGS Small to moderate area of decreased tracer uptake was noted in the mid and apical inferior and in the apical segments. No significant reversibility was noted in these regions. FUNCTIONAL RESULTS (calculated via Gated SPECT) Stress Image LV EF (%): 67 Stress EDV (mL):93 TID: 1 Stress ESV (mL):31 FUNCTIONAL FINDINGS: Segmental wall motion analysis revealing no gross wall motion abnormalities IMPRESSIONS 1. Myocardial perfusion may revealing a small to moderate areas of persistent decreases uptake in the inferior and apical regions, suggestive of myocardial scarring versus attenuation artifacts. 2. Normal LV ejection fraction 67%. 3. LV wall motion analysis revealing no gross wall motion abnormalities. 4. Normal LV volume. No significant coronary ischemia, based on the above findings. No similar previous studies are available for comparison Dr Eulogio Ortiz MD [facility] (Electronically Signed) Final Date: 03 November 2020 20:04 S
[2020-11-03 09:51] VITALS: BMI 30.1
[2020-11-03] MEDS: regadenoson 0.4 Mg/5 ml Syringe IVP (11:13)
[2020-11-03 11:14] VITALS: BP 145/77; PULSE 100
== END 2020-11-03 08:49 | disposition home or self-care (01) ==
LOC: RAD 09:03
PROVIDERS: PCP Family Medicine; Visit Provider Family Medicine
DX: R07.89 Other chest pain (principal)
CPT/HCPCS: 78452; 93017; A9500; J2785

== ENCOUNTER 2022-08-03 10:01 | Emergency (ER) | payer MEDICARE, SELFPAY ==
[2022-08-03] VITALS (7 sets, daily range): BP systolic 122–160; BP diastolic 80–85; PULSE 89–100; RESP 14–24; TEMP 36.8; O2SAT 91–94; BMI 29.2
--- NOTE | 2022-08-03 10:15 | ECG_ITS ---
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 Measurements Intervals [place] Rate: 85 P: 84 OR: 159 QRS: 74 QRSD: 96 T: 73 QT: 315 QTc: 375 Interpretive Statements SINUS RHYTHM Compared to ECG 10/09/2020 10:05:50 No significant changes Electronically Signed On 08-03-2022 12:50:25 CDT by Vanessa Fontana M.D. [id number]
--- NOTE | 2022-08-03 11:11 | ED_ITS ---
HPI - General Adult General: Chief complaint: Shortness of Breath/Dyspnea Stated complaint: SOB,weak Time Seen by Provider: 08/03/22 11:09 History of Present Illness: Patient is a 76-year-old male with a history of COPD, CHF, diabetes, smoking presents the emergency room for worsening dyspnea for the last month. Patient tells me that he has had significant dyspnea with wheeing over the last 4 weeks. Two weeks ago, patient began having a nonproductive cough. Patient denies any associated chest pain, exertional chest pain, or pleuritic chest pain, productive phlegm, fever or chills, runny nose or sore throat. Patient denies any abdominal pain, diarrhea, melena/hematochezia, or complaints at this time. Patient has been using his neubalizier at home but report using it once a day. Onset:4 weeks ago of dyspnea, 2 weeks of cough Duration:ongoing Location:home Severity:moderate Associated symptoms: Reports dyspnea; Deny chest pain, nausea, rash, palpitations or vomiting Review of Systems Const: Denies: fever(s) or chills Eyes: Denies: change in vision ENMT: Denies: mouth pain Card: Denies: chest pain or palpitations Resp: Reports: dyspnea, non-productive cough and other (+wheezing) GI: Denies: abdominal pain, nausea, vomiting or diarrhea : Denies: dysuria Musc: Denies: extremity pain Skin/Breast: Denies: rash or new lesions Neuro: Denies: weakness in extremities Psych: Reports: other (Normal mood) [place]/Lymph: Denies: easy bruising PFSH ED PFSH: Medical History (Updated 08/03/22 @ 12:37 by Katey Stockton MD) COPD (chronic obstructive pulmonary disease) Diabetes Hypertension Surgical History H/O hemorrhoidectomy H/O hernia repair History of carpal tunnel surgery of right wrist History of cholecystectomy History of testicular surgery Hx of tonsillectomy Social History Smoking and tobacco status: current every day smoker cigarettes Packs smoked per day: 1 Years cigarettes smoked: 65 Quit status (tobacco): considering quitting Second hand smoke exposure: Yes Smoking risk assessment/counseling performed?: Yes Alcohol intake: never Lives independently: Yes Household members: none Marital status: / service: No Current occupational status: retired Pets and animals: No History of recent travel: No Current gender identity: Male Physical Exam Const: COMMON NORMALS: alert HENMT: COMMON NORMALS: atraumatic HEAD & SCALP: atraumatic MOUTH: moist mucous membranes not abnormal Eye: COMMON NORMALS: EOMs intact bilaterally and conjunctivae normal CONJUNCTIVA: Yes conjunctivae normal Neck/C-Spine: COMMON NORMALS: full ROM and supple Resp: COMMON NORMALS: normal respiratory effort OTHER: +expiratory wheezes b/l Cardio: COMMON NORMALS: regular rate RATE: regular rate GI: COMMON NORMALS: Soft to palpation and non-tender PALPATION: Yes Soft to palpation OTHER: +mild mid epigastric focal TTP. NO guarding rebound, guarding, rigidity. No CVA tenderness to percussion. Neg Abrams/Neg McBurney's point tenderness, no suprabupic tenderness to palpation. Extremity: COMMON NORMALS: full ROM Neuro: SENSORIUM/ORIENTATION: Yes alert MOTOR EXAM: No Abnormal motor strength present and Other motor observations present (no focal motor deficits) Psych: COMMON NORMALS: speech normal SPEECH: Yes normal speech MOOD & AFFECT: Yes euthymic mood Course Vital Signs: Vital signs: Vital Signs Temperature 98.3 F 08/03/22 10:08 Pulse Rate 89 08/03/22 11:44 Respiratory Rate 24 H 08/03/22 11:44 Blood Pressure 160/83 08/03/22 11:37 Pulse Oximetry 94 08/03/22 11:44 Oxygen Delivery Me thod 08/03/22 11:44 [facility] [place] - General Adult Medical Decision Making Patient is a 76-year-old male with a history of COPD, CHF, diabetes, smoking presents the emergency room for worsening dyspnea for the last month. On physical exam, patient is in no respiratory distress. Patient did have expiratory wheezes bilaterally. Patient received DuoNeb and Solu-Medrol improvement in symptoms. Lab work and troponin within normal limit. EKG did not show any signs of ischemia. XR chest appears to be clear. At present, I do not suspect ACS. Symptoms today of likely COPD exacerbation. Rx albuterol inhaler for wheezing Disposition: Discharge. Patient counseled regarding diagnostic impression, treatment plan. Patient given ED strict return precautions to return for continuation, worsening, or development of new symptoms. Instructed to f/u w/ PCP regarding symptoms today. Patient verbalized understanding. Lab Data : 08/03/22 11:25 08/03/22 11:25 Radiology Impressions Chest X-Ray 08/03/22 11:12 Impression: Atherosclerosis and hyperinflation. Laboratory Results WBC 7.4 10^3/uL (4.0-10.0) 08/03/22 11:25 RBC 5.04 10^6/uL (4.1-5.3) 08/03/22 11:25 Hgb 14.6 g/dL (11.7-16.6) 08/03/22 11:25 Hct 45.6 % (42.0-52.0) 08/03/22 11:25 MCV 90.5 fl (80-94) 08/03/22 11:25 MCH 29.0 pg (28.0-34.0) 08/03/22 11:25 MCHC 32.0 g/dL (30.0-36.0) 08/03/22 11:25 RDW 14.7 % (12.1-15.1) 08/03/22 11:25 Plt Count 196 10^3/cmm (130-400) 08/03/22 11:25 MPV 10.0 fL (7.4-10.4) 08/03/22 11:25 Neut % (Auto) 67.4 % 08/03/22 11:25 Lymph % (Auto) 18.3 % 08/03/22 11:25 [place] % (Auto) 10.3 % 08/03/22 11:25 Eos % (Auto) 2.7 % 08/03/22 11:25 Baso % (Auto) 0.8 % 08/03/22 11:25 Neut # (Auto) 4.97 10^3/uL (1.8-7.7) 08/03/22 11:25 Lymph # (Auto) 1.4 10^3/uL (0.8-4.8) 08/03/22 11:25 [place] # (Auto) 0.8 10^3/uL (0.2-0.9) 08/03/22 11:25 Eos # (Auto) 0.2 10^3/uL (0.0-0.8) 08/03/22 11:25 Baso # (Auto) 0.1 10^3/uL (0.0-0.1) 08/03/22 11:25 Nucleated RBC % (auto) 0 % 08/03/22 11:25 Nucleated RBCs # 0.0 /100WBC 08/03/22 11:25 Sodium 137 mmol/L (136-145) 08/03/22 11:25 Potassium 4.0 mmol/L (3.5-5.1) 08/03/22 11:25 Chloride 100 mmol/L (98-107) 08/03/22 11:25 Carbon Dioxide 29 mmol/L (22-29) 08/03/22 11:25 Anion Gap 12.0 (5-19) 08/03/22 11:25 BUN 6 mg/dL (8-23) L 08/03/22 11:25 Creatinine 0.6 mg/dL (0.7-1.2) L 08/03/22 11:25 GFR Calculation Not Reportable 08/03/22 11:25 Glucose 72 mg/dL (65-115) 08/03/22 11:25 Calculated Osmolality 280 mOsm/kg (285-295) L 08/03/22 11:25 Calcium 8.9 mg/dL (8.5-10.5) 08/03/22 11:25 Total Bilirubin 0.4 mg/dL (0.15-1.2) 08/03/22 11:25 AST 17 U/L (0-40) 08/03/22 11:25 ALT 10 U/L (0-41) 08/03/22 11:25 Alkaline Phosphatase 63 U/L (40-130) 08/03/22 11:25 Troponin T Baseline 14 ng/L (0-15) 08/03/22 11:25 C-Reactive Protein 3.0 mg/L (0.0-4.9) 08/03/22 11:25 NT-Pro-B Natriuret Pep 73 pg/mL (0-450) 08/03/22 11:25 Total Protein 6.3 g/dL (6.6-8.7) L 08/03/22 11:25 Albumin 3.7 g/dL (3.5-5.2) 08/03/22 11:25 Globulin 2.6 g/dL (1.3-4.6) 08/03/22 11:25 Lipase 14 U/L (13-60) 08/03/22 11:25 Procalcitonin 0.07 ng/mL (0-0.5) 08/03/22 11:25 Imaging Data Other Imaging: Radiologist's impression: [address] [address] XRay Report Signed Patient: Jeremías Eduoard Unit #: [id number] : 1945 Age/Sex: 76 / M ADM Date: 08/03/22 Loc: ER Room/Bed: Attending Dr: Ordering Provider/Ordering MD: Katey Stockton MD Date of Service: 08/03/22 Procedure(s): XR chest 1V portable [id number] Accession Number(s): [id number] Report Number: [id number] WS: [id number] Portable AP upright chest, 08/03/2022 Clinical Data: dyspnea Comparison: Portable chest, 10/09/2020. Findings: No nodules, masses or effusions are seen. The heart is normal. The pulmonary vascularity is not increased. No pneumonia or pneumothorax is seen. The diaphragms are flattened. The aortic arch and descending thoracic aorta show tortuosity. There is a dextroscoliosis of the thoracic spine. XR/XR chest 1V portable [id number] Impression: Atherosclerosis and hyperinflation. ? Dictated By: Lary Dhillon MD Signed By: Lary Dhillon MD Signed Date/Time: 08/03/22 1142 DD/ 1141 Discharge Plan Discharge Patient Disposition: Home Clinical Impression: Dyspnea and respiratory abnormalities, Acute exacerbation of chronic obstructi ve pulmonary disease Condition: Stable Prescriptions: New albuterol sulfate 90 mcg/actuation HFA aerosol inhaler 2 inh inhalation Q4H PRN (Reason: shortness of breath or wheezing) 5 Days Qty: 6.7 0RF No Action Linzess 145 mcg capsule 145 mcg PO DAILY Rexulti 1 mg tablet 1 mg PO DAILY acidophilus-pectin, citrus [Acidophilus Probiotic] 100 million cell-10 mg capsule PO gabapentin 100 mg capsule 100 mg PO TID nicotine 21 mg/24 hr patch 24 hour 1 patch transdermal DAILY Qty: 28 3RF Trelegy Ellipta 100-62.5-25 mcg blister with device 1 inh inhalation DAILY Qty: 60 3RF albuterol sulfate 2.5 mg /3 mL (0.083 %) Solution For Nebulization 2.5 mg INHALATION Q4H PRN (Reason: Shortness Of Breath) [place] 10-325 mg Tablet See Rx Instructions .ROUTE .COMPLEX Rx Instructions: 1 - 2 tab orally q4-6h prn Aspir-81 81 mg Tablet,Delayed Release (Dr/Ec) 81 mg PO DAILY Flomax 0.4 mg Capsule 0.4 mg PO DAILY Colace 100 mg Capsule 200 mg PO DAILY Singulair 10 mg Tablet 10 mg PO BEDTIME pravastatin 20 mg Tablet 20 mg PO DAILY Miralax 17 gram/dose Powder 17 g PO DAILY PRN (Reason: Constipation) glipizide 5 mg Tablet 5 mg PO BID Januvia 50 mg Tablet 50 mg PO DAILY omeprazole 20 mg capsule,delayed release(DR/EC) 20 mg PO DAILY 28 Days 1RF Discharge Orders: Discharge ED (Routine); Ordered 08/03/22 Ordered By: Katey Stockton Referrals: Cornelia Ayala DO [Primary Care Provider] - Discharge Diet: Advance as tolerated Discharge Activity: Increase activity as tolerated Patient Instructions: COPD (Chronic Obstructive Pulmonary Disease) (ED), Acute Cough (ED) Activity Restrictions/Additional Instructions: Come back to the emergency room if your symptoms worsen, have any shortness of breath, fever/chills, dehydration, inability tolerate food or drinks, any dif ficulty breathing, or any new or concerning complaints. Coding Level of Care Code ED Cloth Painter for Jf Fwjarad Exam Comprehensive
--- NOTE | 2022-08-03 11:12 | XR_ITS ---
WS: [id number] Portable AP upright chest, 08/03/2022 Clinical Data: dyspnea Comparison: Portable chest, 10/09/2020. Findings: No nodules, masses or effusions are seen. The heart is normal. The pulmonary vascularity is not increased. No pneumonia or pneumothorax is seen. The diaphragms are flattened. The aortic arch a nd descending thoracic aorta show tortuosity. There is a dextroscoliosis of the thoracic spine. XR/XR chest 1V portable [id number] Impression: Atherosclerosis and hyperinflation.
[2022-08-03] MEDS: ipratropium-albuterol 3 mL Neb INHALATION ×3 (11:33→11:41)
[2022-08-03 11:51] LABS: Troponin(5th) Baseline 14 ng/L (0-15)
[2022-08-03 12:01] LABS: NT Pro B Type Natriuretic Pept 73 pg/mL (0-450); Procalcitonin 0.07 ng/mL (0-0.5)
[2022-08-03 12:12] LABS: Alanine Aminotransferase 10 U/L (0-41); Albumin Level 3.7 g/dL (3.5-5.2); Alkaline Phosphatase 63 U/L (40-130); Aspartate Amino Transferase 17 U/L (0-40); Blood Urea Nitrogen 6 mg/dL (8-23); Calcium 8.9 mg/dL (8.5-10.5); Carbon Dioxide 29 mmol/L (22-29); Chloride 100 mmol/L (98-107); Globulin 2.6 g/dL (1.3-4.6); Glucose 72 mg/dL (65-115); Lipase 14 U/L (13-60); Osmolality Calculated 280 mOsm/kg (285-295); Sodium 137 mmol/L (136-145); Total Bilirubin 0.4 mg/dL (0.15-1.2); Total Protein 6.3 g/dL (6.6-8.7)
[2022-08-03 13:25] LABS: Adenovirus Not Detected (NOT DETECT); Chlamydia Pneumoniae Not Detected (NOT DETECT); Coronavirus 229E,HKU1,NL63,OC4 Not Detected (NOT DETECT); Human Metapneumovirus Not Detected (NOT DETECT); Human Rhinovirus/Enterovirus Not Detected (NOT DETECT); Influenza A Not Detected (NOT DETECT); Influenza A H1 Not Detected (NOT DETECT); Influenza A H1-2009 Not Detected (NOT DETECT); Influenza A H3 Not Detected (NOT DETECT); Influenza B Not Detected (NOT DETECT); Mycoplasma Pneumoniae Not Detected (NOT DETECT); Parainfluenza Virus Type 1 Not Detected (NOT DETECT); Parainfluenza Virus Type 2 Not Detected (NOT DETECT); Parainfluenza Virus Type 3 Not Detected (NOT DETECT); Parainfluenza Virus Type 4 Not Detected (NOT DETECT); Respiratory Syncytial Virus A Not Detected (NOT DETECT); Respiratory Syncytial Virus B Not Detected (NOT DETECT); SARS-COV-2 Not Detected (NOT DETECT)
[2022-08-03 14:10] LABS: Troponin 5 2HR 11.78 ng/L (0-15)
[2022-08-03 14:18] LABS: Troponin 5 2HR Delta -2.22 ABS# (0-10)
[2022-08-03 17:01] LABS: Results from Genmark
== END 2022-08-03 15:19 | disposition home or self-care (01) ==
PROVIDERS: Emergency Provider Emergency Medicine; PCP Family Medicine
DX: J44.1 Chronic obstructive pulmonary disease with (acute) exacerbation (principal); Z79.84 Long term (current) use of oral hypoglycemic drugs; Z79.82 Long term (current) use of aspirin; E11.9 Type 2 diabetes mellitus without complications; I10 Essential (primary) hypertension; F17.210 Nicotine dependence, cigarettes, uncomplicated; Z20.822 Contact with and (suspected) exposure to COVID-19
CPT/HCPCS: 36415; 71045; 80053; 83690; 83880; 84145; 84484; 85025; 86140; 87631; 87635; 93005; 94640; 96374; 99285; J2930

== ENCOUNTER → 2023-07-27 09:27 | Outpatient (BNVA) | payer MEDICARE, SELFPAY | PROVIDERS: PCP Family Medicine; Referring Provider Family Medicine; Visit Provider Internal Medicine Pulmonary Disease | DX: J44.1 Chronic obstructive pulmonary disease with (acute) exacerbation (principal); Z12.2 Encounter for screening for malignant neoplasm of respiratory organs; Z71.6 Tobacco abuse counseling; R22.43 Localized swelling, mass and lump, lower limb, bilateral; J96.11 Chronic respiratory failure with hypoxia; Z99.81 Dependence on supplemental oxygen; Z91.128 Patient's intentional underdosing of medication regimen for other reason; J96.12 Chronic respiratory failure with hypercapnia; F17.210 Nicotine dependence, cigarettes, uncomplicated | CPT/HCPCS: 99214 ==

== ENCOUNTER 2023-08-08 12:35 | Outpatient (CLI) | payer MEDICARE, SELFPAY ==
--- NOTE | 2023-08-08 13:15 | USCV_ITS ---
Javan Jeremías Age: 77 Gender: M : 1945 Exam Date: 08/08/2023 13:04 Ordering Phys: Carlos Ortega MD Technologist: VICKIE Exam Location: [facility] [place] Indication: SHORTNESS OF BREATH BP: 146 / 89 HR: 78 Rhythm: Sinus Technical Quality: Suboptimal MEASUREMENTS (Male / Female) Normal Values 2D ECHO LVOT Diameter 2.0 cm LV Ejection Fraction MOD 2C 63.9 % LV Ejection Fraction 2C AL 65.1 % LA Diameter 2.1 cm LA Width 2.8 cm LA Height 4.7 cm RA Width 3.5 cm RA Height 4.3 cm Aorta at Sinotubular Diameter 2.7 cm IVC Diameter 1.6 cm M-MODE Aortic Annulus Diameter 3.7 cm LA Ao Ratio MM 0.5 MV E Point Septal Separation 0.7 cm DOPPLER AV Peak Velocity 98.0 cm/s LVOT Peak Velocity 84.0 cm/s AV Area Cont Eq vti 3.0 cm squared AV Area Cont Eq pk 2.7 cm squared MV Peak Velocity 67.0 cm/s MV Area PHT 3.3 cm squared Mitral E to A Ratio 0.6 MV E' Velocity 25.5 cm/s Mitral E to MV E' Ratio 5.9 Mitral E to LV E' Lateral Ratio 4.8 Mitral E to LV E' Septal Ratio 7.8 TR Peak Velocity 139.7 cm/s TR Peak Gradient 7.8 mmHg TR Mean Velocity 111.3 cm/s TR Mean Gradient 5.1 mmHg TR Velocity Time Integral 36.6 cm TV Peak E Velocity 41.0 cm/s Right Atrial Pressure 3.0 mmHg Pulmonary Artery Systolic Pressu 10.8 mmHg FINDINGS Left Ventricle Normal left ventricular size and systolic function, EF 62 %. No regional wall motion abnormalities. Grade I/IV diastolic dysfunction (abnormal relaxation filling pattern), normal to mildly elevated filling pressures. Right Ventricle Mildly increased right ventricular size. Normal right ventricular systolic function. Right Atrium Mildly increased right atrial size. Left Atrium The left atrium is normal in size. Mitral Valve No gross abnormalities noted Aortic Valve No gross abnormalities noted Tricuspid Valve Trace tricuspid valve regurgitation. Estimated pulmonary artery peak systolic pressure 41 mmHg Pulmonic Valve Pulmonic valve not well visualized. Pericardium Normal pericardium without effusion. Aorta Mildly dilated aortic root. At the level of the sinuses, the root was measuring 4.0 cm in diameter. At the level of the ascending aorta, it was measuring 3.5 cm IVC Normal inferior vena cava. CONCLUSIONS Normal left ventricular size and systolic function, EF 62 %. No regional wall motion abnormalities. Grade I/IV diastolic dysfunction (abnormal relaxation filling pattern), normal to mildly elevated filling pressures. Mildly dilated right atrium right ventricle Trace tricuspid valve regurgitation. Estimated pulmonary artery peak systolic pressure 41 mmHg. This could be an underestimation because of the poor Doppler signals Mildly dilated aortic root. At the level of the sinuses, the root was measuring 4.0 cm in diameter. At the level of the ascending aorta, it was measuring 3.5 cm No similar previous studies are available for comparison Dr Eulogio Ortiz MD FAC (Electronically Signed) Final Date: 08 August 2023 18:39 S
== END 2023-08-08 12:36 | disposition home or self-care (01) ==
LOC: RAD 12:35
PROVIDERS: PCP Family Medicine; Visit Provider Internal Medicine Pulmonary Disease
DX: R06.02 Shortness of breath (principal); I07.1 Rheumatic tricuspid insufficiency
CPT/HCPCS: 93306

== ENCOUNTER 2023-08-09 10:12 | Outpatient (CLI) | payer MEDICARE, SELFPAY ==
--- NOTE | 2023-08-09 10:15 | CT_ITS ---
WS: [id number] LDCT LUNG CANCER SCREENING TECHNIQUE: Noncontrast CT of the chest with coronal and sagittal reformatted images. CLINICAL INFORMATION: Cancer Screen COMPARISON: None. DLP: 86.51 mGy.cm DIvol: Mean CTDIvol: 1.60 (mGy) All CT scans at [facility] use at least one of these dose optimization techniques: automat ed exposure control; mA and/or kV adjustment per patient size (includes targeted exams where dose is matched to clinical indication); or iterative reconstruction. FINDINGS: Advanced chronic emphysematous changes. Normal caliber thoracic aorta. Aortic calcification. Enlarged main pulmonary arteries can be seen with pulmonary arterial hypertension. No mediastinal or hilar ly mphadenopathy. Normal GE junction. Adrenal glands are normal. Cholecystectomy clips. Moderate spondylitic changes thoracic spine. Mild thoracic curve. Few calcified granulomas. Fibrosis in the lung apices. Noncalcified nodule LEFT lower lobe measuring 4 mm. Tiny noncalcified nodule RIGH T upper lobe. IMPRESSION: CT/CT lung screening [id number] LUNG-RADS: 2-Benign Appearance or Behavior FOLLOW UP: 12 Month: Continue annual screening with LDCT
[2023-08-09 10:46] VITALS: PULSE 88; RESP 18; O2SAT 99
[2023-08-09] MEDS: albuterol 2.5 mg/3 mL Neb INHALATION (10:46)
[2023-08-09 10:51] VITALS: PULSE 90
== END 2023-08-09 10:13 | disposition home or self-care (01) ==
LOC: RAD 10:12
PROVIDERS: PCP Family Medicine; Visit Provider Internal Medicine Pulmonary Disease
DX: F17.210 Nicotine dependence, cigarettes, uncomplicated (principal); R06.09 Other forms of dyspnea; Z12.2 Encounter for screening for malignant neoplasm of respiratory organs
CPT/HCPCS: 71271; 94060; 94618; 94726; 94729; J7613

== ENCOUNTER 2023-09-04 12:29 | Emergency (ER) | payer MEDICARE, SELFPAY ==
[2023-09-04] VITALS (9 sets, daily range): BP systolic 106–134; BP diastolic 63–85; PULSE 68–99; RESP 16–19; TEMP 36.8; O2SAT 94–99
--- NOTE | 2023-09-04 13:05 | XR_ITS ---
WS: [email or web address] Exam: XR chest 1V portable [id number] Date/Time of Exam: 09/04/2023 1:07 PM Reason For Exam: dyspnea/cough Comparison 08/03/2022. Mild groundglass infiltrate noted in the RIGHT lower lung zone. There may also be some infiltrate in the lingular segment of the LEFT upper lobe. The lungs are hyperinflated. Normal cardiomediastinal si lhouette for technique. Bony structures are intact. No pleural effusions. No pneumothorax. Prominent main pulmonary arteries that might indicate pulmonary hypertension. IMPRESSION: 1. Infiltrates in the RIGHT lower lung zone and also probably in the lingular segment of the LEFT upp er lobe. Findings are suspicious for pneumonia. 2. Pulmonary hyperinflation suggesting COPD.
--- NOTE | 2023-09-04 13:06 | ECG_ITS ---
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 Measurements Intervals [place] Rate: 83 P: 71 IA: 164 QRS: 69 QRSD: 97 T: 66 QT: 320 QTc: 378 Interpretive Statements SINUS RHYTHM POSSIBLE LEFT ATRIAL ENLARGEMENT [-0.1mV P-WAVE IN V1/V2] MINIMAL ST DEPRESSION [0.025+ mV ST DEPRESSION] Compared to ECG 08/03/2022 10:15:12 ST (T wave) deviation now present Electronically Signed On 09-04-2023 23:18:05 SCULLION CHIEF by Eulogio Ortiz M.D. [id number]
--- NOTE | 2023-09-04 13:17 | ED_ITS ---
HPI - SOB/Dyspnea General: Chief Complaint: Shortness of Breath/Dyspnea Stated Complaint: Resp Distress Time Seen by Provider: 09/04/23 12:29 Source: patient Mode of arrival: EMS Limitations: no limitations History of Present Illness: HPI Narrative: Patient is a 78-year-old male with history of COPD, diabetes, and hypertension who presents to the emergency department via EMS due to increased shortness of breath onset today. Patient's son called EMS due to patient's increasing dyspnea today, as patient states he has not slept in the last 2 days due to his increased work of breathing. He states that he noticed his breathing get worse approximately 2 weeks ago, but he got concerned today when his breathing was not improved with nebulized albuterol treatment. He is on 2 L of oxygen at all times, and per EMS, this was up to 4 L in route. He states that he was recently started on Levaquin due to a productive cough associated with his increase difficulty breathing. He still has a productive cough but he states it is clear in color and coughing up the phlegm seems to improve his breathing. He reports associated burning central chest pain that is worse with deep breaths and coughing. He says this began when his breathing difficulty increased. He denies any fever or recent sickness. He denies any increase in peripheral edema or ascites. He takes Lasix for CHF, but denies any recent changes in medication dosage. He also notes two-pillow orthopnea which is new, stating that it has been 48 hours since he slept. MD elicited complaint: shortness of breath and cough Pertinent past history: COPD and diabetes Associated symptoms: Reports chest pain and orthopnea; Deny abdominal pain, fever(s), lightheadedness, nausea, palpitations, syncope or vomiting Review of Systems Const: Reports: fatigue; Denies: fever(s), chills, change in weight or night sweats ENMT: Denies: throat pain Card: Reports: chest pain, edema and orthopnea; Denies: palpitations, lightheadedness or syncope Resp: Reports: dyspnea and productive cough GI: Denies: abdominal pain, nausea or vomiting : Denies: dysuria, urinary frequency or urinary urgency Musc: Denies: neck pain or back pain Skin/Breast: Denies: rash PFSH ED PFSH: Medical History (Updated 09/04/23 @ 16:23 by Uriel Velasco DO) COPD (chronic obstructive pulmonary disease) Diabetes Hypertension Surgical History H/O hemorrhoidectomy H/O hernia repair History of carpal tunnel surgery of right wrist History of cholecystectomy History of testicular surgery Hx of tonsillectomy Social History Smoking and tobacco/nicotine status: current every day tobacco/nicotine user cigarettes Packs smoked per day: 1 Years cigarettes smoked: 66 [ Other cigarette details: Started in 6] Quit status (tobacco/nicotine): considering quitting Second hand smoke exposure: Yes Alcohol intake: never Substance/Drug Use: never Lives independently: Yes Household members: none Marital status: / service: No Current occupational status: retired Pets and animals: No Do you think of yourself as: Straight/Heterosexual Current gender identity: Male Physical Exam Const: GENERAL APPEARANCE: cooperative NUTRITIONAL APPEARANCE: obese ORIENTATION/CONSCIOUSNESS: Yes awake, Yes oriented to person, Yes oriented to place and Yes oriented to time HENMT: COMMON NORMALS: normocephalic, atraumatic and hearing grossly normal bilaterally HEAD & SCALP: normocephalic and atraumatic MOUTH: Normal oral and palatal mucosa present THROAT: posterior oropharynx normal Eye: COMMON NORMALS: Equal, round and reactive pupils present and conjunctivae normal CONJUNCTIVA: Yes conjunctivae normal PUPIL: Yes Equal, round and reactive pupils present Chest: COMMONS NORMALS: normal inspection of the chest and normal palpation of entire chest wall Resp: COMMON NORMALS: No retractions and percussion normal EFFORT & INSPECTION: Yes able to speak in complete sentences, Yes symmetric chest movement and Yes labored AUSCULTATION: wheezes (Diffuse, worse at the bases bilaterally) PERCUSSION: percussion normal Cardio: COMMON NORMALS: regular rate, regular rhythm, No murmurs present (Cardio) and Peripheral pulses 2+ throughout RATE: regular rate RHYTHM: regular rhythm PERIPHERAL PULSES: Peripheral pulses 2+ throughout GI: COMMON NORMALS: Soft to palpation and No hepatosplenomegaly present AUSCULTATION: Yes normoactive bowel sounds PALPATION: Yes Soft to palpation, No Tenderness to palpation present (GI), No Guarding due to palpation present (GI) and Yes No hepatosplenomegaly present Extremity: COMMON NORMALS: normal to inspection, capillary refill normal, no clubbing, cyanosis or edema and no calf tenderness NARRATIVE EXTREMITY EXAM: 1+ bilateral peripheral edema Neuro: SENSORIUM/ORIENTATION: Yes oriented to person, Yes oriented to place and Yes oriented to time Skin: COMMON NORMALS: no rashes or lesions noted GENERAL SKIN EXAM: no rashes or lesions noted Course 2 Vital Signs: Vital signs: Vital Signs Temperature 98.2 F 09/04/23 14:15 Pulse Rate 81 09/04/23 17:00 Respiratory Rate 16 09/04/23 17:00 Blood Pressure 134/85 09/04/23 15:00 Pulse Oximetry 97 09/04/23 17:00 Oxygen Delivery Me thod Nasal Cannula 09/04/23 16:00 Oxygen Flow Rate 2 09/04/23 16:00 MDM - SOB/Dyspnea Medical Decision Making No sign of acute coronary syndrome or significantly decompensated CHF. He does have a mild exacerbation of COPD and potential early pneumonia however his oxygen sats are normal and his wheezing improved with nebulizers and steroids. Long discussion with the patient and family member at the bedside of the work-up done in evaluation and things that we are considering. Continue on his Lasix for now we will start him on a prednisone taper tomorrow discharge home on Cefdinir and Zithromax since he has been on Levaquin frequently lately. Follow- up with his primary care doctor in the next 1 to 2 days if worsening or change symptoms return to the emergency room. Medical Records I reviewed the patient's medical records. Lab Data I reviewed the patient's lab results. 09/04/23 13:16 09/04/23 13:16 Labs/Radiology: Laboratory Results WBC 9.10 10^3/uL (3.29-11.43) 09/04/23 13:16 RBC 5.15 10^6/uL (3.85-5.65) 09/04/23 13:16 Hgb 14.80 g/dL (11.27-16.99) 09/04/23 13:16 Hct 47.1 % (37-53) 09/04/23 13:16 MCV 91.5 fl (82-101) 09/04/23 13:16 MCH 28.7 pg (27-33) 09/04/23 13:16 MCHC 31.4 g/dL (30-55) 09/04/23 13:16 RDW 15.5 % (12.1-15.1) H 09/04/23 13:16 Plt Count 189 10^3/cmm (157-399) 09/04/23 13:16 MPV 9.8 fL (7.4-10.4) 09/04/23 13:16 Neut % (Auto) 77.5 % 09/04/23 13:16 Lymph % (Auto) 11.5 % 09/04/23 13:16 Ogle % (Auto) 8.7 % 09/04/23 13:16 Eos % (Auto) 1.4 % 09/04/23 13:16 Baso % (Auto) 0.4 % 09/04/23 13:16 Neut # (Auto) 7.04 10^3/uL (1.8-7.7) 09/04/23 13:16 Lymph # (Auto) 1.1 10^3/uL (0.8-4.8) 09/04/23 13:16 Ogle # (Auto) 0.8 10^3/uL (0.2-0.9) 09/04/23 13:16 Eos # (Auto) 0.1 10^3/uL (0.0-0.8) 09/04/23 13:16 Baso # (Auto) 0.0 10^3/uL (0.0-0.1) 09/04/23 13:16 Nucleated RBC % (auto) 0 % 09/04/23 13:16 Nucleated RBCs # 0.0 /100WBC 09/04/23 13:16 Sodium 138 mmol/L (136-145) 09/04/23 13:16 Potassium 4.3 mmol/L (3.5-5.1) 09/04/23 13:16 Chloride 96 mmol/L (98-107) L 09/04/23 13:16 Carbon Dioxide 34 mmol/L (22-29) H 09/04/23 13:16 Anion Gap 12.3 (5-19) 09/04/23 13:16 BUN 11 mg/dL (8-23) 09/04/23 13:16 Creatinine 0.9 mg/dL (0.7-1.2) 09/04/23 13:16 GFR Calculation Not Reportable 09/04/23 13:16 Glucose 165 mg/dL (65-115) H 09/04/23 13:16 Calculated Osmolality 289 mOsm/kg (285-295) 09/04/23 13:16 Lactic Acid 1.6 mmol/L (0.5-2.2) 09/04/23 13:16 Calcium 9.4 mg/dL (8.5-10.5) 09/04/23 13:16 Total Bilirubin 0.5 mg/dL (0.15-1.2) 09/04/23 13:16 AST 11 U/L (0-40) 09/04/23 13:16 ALT 6 U/L (0-41) 09/04/23 13:16 Alkaline Phosphatase 62 U/L (40-130) 09/04/23 13:16 Troponin T Baseline 21 ng/L (0-15) H 09/04/23 13:16 Troponin T 120 Minute 18.39 ng/L (0-15) H 09/04/23 15:43 Delta Troponin T -2.61 ABS# (0-10) L 09/04/23 15:43 Total Protein 6.5 g/dL (6.6-8.7) L 09/04/23 13:16 Albumin 3.9 g/dL (3.5-5.2) 09/04/23 13:16 Globulin 2.6 g/dL (1.3-4.6) 09/04/23 13:16 Urine Color Straw (Yellow) 09/04/23 13:36 Urine Appearance Clear (CLEAR) 09/04/23 13:36 Urine pH 5 (5-7) 09/04/23 13:36 Ur Specific [place] 1.005 (1.005-1.030) 09/04/23 13:36 Urine Protein Neg (Negative) 09/04/23 13:36 Urine Glucose (UA) Norm (Normal) 09/04/23 13:36 Urine Ketones Negative (Negative) 09/04/23 13:36 Urine Blood Neg (Negative) 09/04/23 13:36 Urine Nitrate Negative (Negative) 09/04/23 13:36 Urine Bilirubin Neg (Negative) 09/04/23 13:36 Urine Urobilinogen Neg mg/dL (Negative) 09/04/23 13:36 Ur Leukocyte Esterase Negative (Negative) 09/04/23 13:36 All radiology interpretation(s) finalized by discharge Discharge Plan Discharge Patient Disposition: Home Clinical Impression: Acute exacerbation of chronic obstructive airways disease, Community acquired pneumonia, Chronic hypoxic respiratory failure, on home oxygen therapy Condition: Stable Prescriptions: New prednisone 20 mg tablet 20 mg PO TID Qty: 15 0RF Rx Instructions: 1 p.o. 3 times daily x3 days, 1 p.o. twice daily x2 days, 1 p.o. daily x2 days cefdinir 300 mg capsule 300 mg PO BID Qty: 14 0RF Zithromax Z-Harrison 250 mg tablet See Rx Instructions .ROUTE .COMPLEX Qty: 6 0RF Rx Instructions: For 250 mg dose pack: take 500 mg today (day 1), then 250 mg for 4 days (days 2-5) ipratropium-albuterol 0.5 mg-3 mg(2.5 mg base)/3 mL solution for nebulization 3 ml inhalation Q4H PRN (Reason: shortness of breath or wheezing) Qty: 90 0RF No Action Trelegy Ellipta 100-62.5-25 mcg blister with device 1 inh inhalation DAILY Qty: 60 3RF albuterol sulfate 90 mcg/actuation HFA aerosol inhaler 2 puff inhalation Q6H PRN (Reason: Shortness Of Breath) tamsulosin [Flomax] 0.4 mg Capsule 0.4 mg PO DAILY montelukast [Singulair] 10 mg Tablet 10 mg PO BEDTIME pravastatin 20 mg Tablet 20 mg PO DAILY glipizide 5 mg Tablet 5 mg PO BID Januvia 50 mg Tablet 50 mg PO DAILY omeprazole 20 mg capsule,delayed release(DR/EC) 20 mg PO DAILY 28 Days 1RF hydrocodone-acetaminophen 10-325 mg tablet 1 - 2 tab PO Q46H PRN (Reason: Pain) Aspir-81 81 mg Tablet,Delayed Release (Dr/Ec) 81 mg PO DAILY Probiotic (B. coagulans) 1 billion cell Tablet,Chewable 1 cell PO DAILY furosemide 40 mg tablet 40 mg PO DAILY latanoprost 0.005 % drops 1 drp ophthalmic (eye) BEDTIME propranolol 10 mg tablet 10 mg PO TID PRN (Reason: TREMORS) potassium chloride 20 mEq tablet,ER particles/crystals 20 meq PO DAILY prednisolone acetate 1 % drops,suspension See Rx Instructions .ROUTE .COMPLEX Rx Instructions: 1 drop into each eye(s) as directed after surgery mirtazapine 30 mg tablet 30 mg PO BEDTIME lisinopril 5 mg tablet 5 mg PO DAILY gabapentin 100 mg capsule 100 mg PO TID levofloxacin 500 mg tablet 500 mg PO DAILY ciprofloxacin-dexamethasone 0.3-0.1 % drops,suspension 4 drp otic (ear) BID PRN (Reason: Ear Pain) Combivent Respimat 20-100 mcg/actuation mist 1 puff INHALATION Q6H Movantik 25 mg tablet 25 mg PO QAM Rx Instructions: BEFORE BREAKFAST DuoNeb 0.5 mg-3 mg(2.5 mg base)/3 mL Solution For Nebulization 3 ml INHALATION Q4H PRN (Reason: Shortness Of Breath) Citrate of Magnesia Solution 300 ml PO DAILY PRN (Reason: Constipation) Multi-Vitamins Tablet 1 tab PO QAM Narcan 0.4 mg/mL Solution 0.4 mg SUBCUT Q3M PRN (Reason: Opioid Overdose) Rx Instructions: NTExceed 10 mg total dose/episode Nitrostat 0.4 mg Tablet, Sublingual 0.4 mg SUBLINGUAL Q5M PRN (Reason: Chest Pain) Rx Instructions: do not exceed 3 doses per episode Discharge Orders: Discharge ED (Routine); Ordered 09/04/23 Ordered By: Uriel Velasco Referrals: Cornelia Ayala DO [Primary Care Provider] - Discharge Diet: Usual diet Discharge Activity: Increase activity as tolerated Patient Instructions: Opioid Safety, Pain Management Activity Restrictions/Additional Instructions: Thank you for choosing [facility] for your healthcare needs today. Please realize this is an emergency room and that we are providing you with a medical screening exam and this may not be complete and all inclusive of all the testing and or work up that you may need to determine your ailment or severity of your illness. It is very important that you follow up as instructed or that you return to the Emergency Department should you have concerns or if your condition changes or worsens in any way. You are seen in the emergency room for difficulty breathing. Your oxygen sats are normal at your usual baseline supplemental oxygen your white count was normal. Your heart enzymes and EKG did not show any acute changes. There is no evidence of pneumothorax or acute coronary syndrome. You do have a pneumonia however at this point based on your vital signs and laboratory studies this can be treated on an outpatient basis. Would recommend starting steroid taper tomorrow starting oral antibiotics tomorrow as well. You are given a dose of steroids and antibiotics in the emergency room. In addition strongly recommend you follow-up with your primary care doctor the next 2 to 3 days. You should use your albuterol nebulizer at least 4 times a day while awake. Coding Level of Care Code ED Washing Machine Operator for Jf Reagan
[2023-09-04] MEDS: dexamethasone 10 mg/mL INJ IM (13:18)
[2023-09-04 13:22] LABS: Basophils % 0.4 %; Eosinophils # 0.1 10^3/uL (0.0-0.8); Eosinophils % 1.4 %; Hematocrit 47.1 % (37-53); Lymphocytes # 1.1 10^3/uL (0.8-4.8); Lymphocytes % 11.5 %; Mean Corpuscular HGB Conc 31.4 g/dL (30-55); Mean Corpuscular Hemoglobin 28.7 pg (27-33); Mean Corpuscular Volume 91.5 fl (82-101); Mean Platelet Volume 9.8 fL (7.4-10.4); Monocytes # 0.8 10^3/uL (0.2-0.9); Monocytes % 8.7 %; Neutrophils # 7.04 10^3/uL (1.8-7.7); Neutrophils % 77.5 %; Nucleated Red Blood Cells % 0 %; Platelet Count 189 10^3/cmm (157-399); Red Blood Count 5.15 10^6/uL (3.85-5.65); Red Cell Distribution Width 15.5 % (12.1-15.1)
[2023-09-04 13:39] LABS: Alanine Aminotransferase 6 U/L (0-41); Albumin Level 3.9 g/dL (3.5-5.2); Alkaline Phosphatase 62 U/L (40-130); Anion Gap 12.3 (5-19); Aspartate Amino Transferase 11 U/L (0-40); Blood Urea Nitrogen 11 mg/dL (8-23); Calcium 9.4 mg/dL (8.5-10.5); Carbon Dioxide 34 mmol/L (22-29); Chloride 96 mmol/L (98-107); Globulin 2.6 g/dL (1.3-4.6); Glucose 165 mg/dL (65-115); Lactic Sepsis W/Reflex 1.6 mmol/L (0.5-2.2); Osmolality Calculated 289 mOsm/kg (285-295); Potassium 4.3 mmol/L (3.5-5.1); Sodium 138 mmol/L (136-145); Total Bilirubin 0.5 mg/dL (0.15-1.2); Total Protein 6.5 g/dL (6.6-8.7)
[2023-09-04 13:42] LABS: Troponin(5th) Baseline 21 ng/L (0-15)
[2023-09-04] MEDS: ipratropium-albuterol 3 mL Neb INHALATION ×2 (13:49→15:23)
[2023-09-04 13:54] LABS: Add Urine Microscopic? NO; Charge for UA Resulting for Rev
[2023-09-04] MEDS: cefTRIAXone 1,000 MG in sodium chloride 0.9% (plus) 50 ML 100 MG IV (13:57)
[2023-09-04 14:02] LABS: Bilirubin Urine Neg (Negative); Blood Urine Neg (Negative); Glucose Urine UA Norm (Normal); Ketones Urine Negative (Negative); Leukocyte Esterase Urine Negative (Negative); Nitrate Urine Negative (Negative); Protein Urine Neg (Negative); Specific Gravity, Urine 1.005 (1.005-1.030); Urine Appearance Clear (CLEAR); Urine Color Straw (Yellow); Urobilinogen Urine Neg (Negative); pH Urine 5 (5-7)
--- NOTE | 2023-09-04 15:06 | ECG_ITS ---
[facility] Test Date: 2023-09-04 Pat Name: Jeremías Edouard Department: Room: Gender: Male Loss Prevention Officer: : 1945 Requested By: Uriel Mcghee Order Number: [id number] Tracy MD: Eulogio Ortiz M.D. Measurements Intervals Leslie Rate: 84 P: 65 CA: 165 QRS: 57 QRSD: 98 T: 58 QT: 322 QTc: 383 Interpretive Statements SINUS RHYTHM Compared to ECG 09/04/2023 13:09:24 ST (T wave) deviation no longer present Electronically Signed On 09-04-2023 23:28:08 LOCOMOTIVE OBSERVER by Eulogio Ortiz M.D. [id number]
[2023-09-04] MEDS: azithromycin 500 MG in sodium chloride 0.9% 250 ML 250 MG IV (15:09)
[2023-09-04 16:09] LABS: Troponin 5 2HR 18.39 ng/L (0-15); Troponin 5 2HR Delta -2.61 ABS# (0-10)
== END 2023-09-04 17:01 | disposition home or self-care (01) ==
PROVIDERS: Emergency Provider Family Medicine; PCP Family Medicine
DX: J44.0 Chronic obstructive pulmonary disease with (acute) lower respiratory infection (principal); J18.9 Pneumonia, unspecified organism; J44.1 Chronic obstructive pulmonary disease with (acute) exacerbation; J96.11 Chronic respiratory failure with hypoxia; Z99.81 Dependence on supplemental oxygen; Z79.84 Long term (current) use of oral hypoglycemic drugs; Z79.82 Long term (current) use of aspirin; F17.210 Nicotine dependence, cigarettes, uncomplicated; E11.9 Type 2 diabetes mellitus without complications; I10 Essential (primary) hypertension
CPT/HCPCS: 36415; 71045; 80053; 81003; 83605; 84484; 85025; 87040; 93005; 94640; 96365; 96367; 96372; 99284; J0456; J0696; J1100; J7050

== ENCOUNTER → 2023-09-11 13:38 | Outpatient (BNVA) | payer MEDICARE, SELFPAY | PROVIDERS: PCP Family Medicine; Visit Provider Internal Medicine Pulmonary Disease | DX: J18.9 Pneumonia, unspecified organism (principal); Z09 Encounter for follow-up examination after completed treatment for conditions other than malignant neoplasm; J44.1 Chronic obstructive pulmonary disease with (acute) exacerbation; Z12.2 Encounter for screening for malignant neoplasm of respiratory organs; Z71.6 Tobacco abuse counseling; R22.43 Localized swelling, mass and lump, lower limb, bilateral; J96.11 Chronic respiratory failure with hypoxia; Z99.81 Dependence on supplemental oxygen; F17.210 Nicotine dependence, cigarettes, uncomplicated | CPT/HCPCS: 99214 ==

== ENCOUNTER 2023-09-17 14:40 | Outpatient (CLI) | payer MEDICARE, SELFPAY ==
--- NOTE | 2023-09-17 14:44 | XRR_ITS ---
PROCEDURE INFORMATION: Exam: XR Chest Exam date and time: 09/17/2023 3:05 PM Age: 78 years old Clinical indication: Shortness of breath; Additional info: F/u TECHNIQUE: Imaging protocol: Radiologic exam of the chest. Views: 2 views. COMPARISON: CR XR chest 1V portable [id number] 09/04/2023 1:08 PM FINDINGS: Lungs: There are patchy opacities at both lung bases with interval improvement. The lungs are hyperexpanded with relative flattening of the hemidiaphragms consistent with emphysema. Pleural spaces: No large pleural effusion evident. Heart/Mediastinum: The heart is not enlarged. The mediastinum is not enlarged. Cardiomediastinal silhouette does not appear enlarged. Bones/joints: Dextroconvex curvature of the thoracic spine is newly demonstrated from previous, likely positional. XR/XR chest 2V* [id number] IMPRESSION: Persistent though improved bibasilar pulmonary opacities. Recommend follow-up to confirm clearance.
== END 2023-09-17 14:41 | disposition home or self-care (01) ==
LOC: RAD 14:41
PROVIDERS: PCP Family Medicine; Visit Provider Internal Medicine Pulmonary Disease
DX: J18.9 Pneumonia, unspecified organism (principal); R91.8 Other nonspecific abnormal finding of lung field
CPT/HCPCS: 71046

== ENCOUNTER 2023-11-09 15:48 | Inpatient (IN) | payer MEDICARE, SELFPAY ==
[2023-11-09] VITALS (32 sets, daily range): BP systolic 109–137; BP diastolic 49–96; PULSE 73–95; RESP 12–44; TEMP 36.8; O2SAT 86–100; BMI 30.7
--- NOTE | 2023-11-09 15:55 | XRR_ITS ---
PROCEDURE INFORMATION: Exam: XR Chest Exam date and time: 11/09/2023 4:46 PM Age: 78 years old Clinical indication: Cough; Additional info: Weakness/cough TECHNIQUE: Imaging protocol: Radiologic exam of the chest. Views: 1 view. COMPARISON: CR XR chest 2V* [id number] 09/17/2023 3:05 PM FINDINGS: Lungs: Moderately hyperinflated lungs similar to prior, consistent with COPD. Mild chronic streak atelectasis/scar in the lung bases. Subtle patchy right central basilar opacity. Pleural spaces: Trace right pleural effusion has developed. No pneumothorax. Heart/Mediastinum: Mildly enlarged cardiac silhouette, mild vascular congestion. Bones/joints: Unremarkable. XR/XR chest 1V portable [id number] IMPRESSION: 1. Mildly enlarged cardiac silhouette, pulmonary vascular congestion and trace right pleural effusion . 2. Moderate hyperinflation due to underlying COPD. Subtle right basilar patchy opacity suggestive of focal pneumonitis.
--- NOTE | 2023-11-09 16:03 | PC.NURSE ---
pts oxygen saturation 100% on 4L NC. this nurse decreased NC to 2L, pt currently 98%.
[2023-11-09 17:30] LABS: Add Urine Culture? No; Add Urine Microscopic? YES; Amorphous Sediment Urine 2+ /hpf; Bacteria Urine TRACE /hpf; Bilirubin Urine 1+ (Negative); Blood Urine Neg (Negative); Glucose Urine UA Norm (Normal); Ketones Urine Negative (Negative); Leukocyte Esterase Urine Negative (Negative); Mucus Urine 2+ /hpf; Nitrate Urine Negative (Negative); Protein Urine Trace (Negative); Squamous Epithelial Cell Urine 0-4 /hpf (0-5); Urine Appearance Clear (CLEAR); Urine Color Yellow (Yellow); Urobilinogen Urine 1 mg/dL (Negative); WBC Urine 0-4 /hpf (0-5); pH Urine 5 (5-7)
[2023-11-09 17:33] LABS: SARS Covid-2 Antigen negative (Negative)
[2023-11-09 17:36] LABS: Basophils % 0.1 %; Hematocrit 42.1 % (37-53); Lymphocytes # 0.3 10^3/uL (0.8-4.8); Lymphocytes % 3.6 %; Mean Corpuscular HGB Conc 30.4 g/dL (30-55); Mean Corpuscular Hemoglobin 27.9 pg (27-33); Mean Corpuscular Volume 91.7 fl (82-101); Mean Platelet Volume 10.1 fL (7.4-10.4); Monocytes # 0.2 10^3/uL (0.2-0.9); Monocytes % 2.1 %; Neutrophils % 93.3 %; Nucleated Red Blood Cells % 0 %; Platelet Count 226 10^3/cmm (157-399); Red Blood Count 4.59 10^6/uL (3.85-5.65); Red Cell Distribution Width 14.6 % (12.1-15.1); White Blood Count 8.04 10^3/uL (3.29-11.43)
[2023-11-09 17:44] LABS: Influenza A by IFA Negative (Negative); Influenza B by IFA Negative (Negative)
[2023-11-09 18:10] LABS: INR 1.09 (0.8-1.2)
[2023-11-09 18:16] LABS: Alanine Aminotransferase 11 U/L (0-41); Albumin Level 3.5 g/dL (3.5-5.2); Alkaline Phosphatase 59 U/L (40-130); Anion Gap 11.8 (5-19); Aspartate Amino Transferase 22 U/L (0-40); Blood Urea Nitrogen 30 mg/dL (8-23); Calcium 8.9 mg/dL (8.5-10.5); Carbon Dioxide 34 mmol/L (22-29); Chloride 93 mmol/L (98-107); Globulin 2.9 g/dL (1.3-4.6); Glucose 136 mg/dL (65-115); Osmolality Calculated 286 mOsm/kg (285-295); Potassium 4.8 mmol/L (3.5-5.1); Sodium 134 mmol/L (136-145); Total Bilirubin 0.3 mg/dL (0.15-1.2); Total Protein 6.4 g/dL (6.6-8.7)
[2023-11-09 18:17] LABS: Lactic Sepsis W/Reflex 1.1 mmol/L (0.5-2.2)
--- NOTE | 2023-11-09 18:47 | ED_ITS ---
HPI - Weakness 2 General: Chief complaint: Weakness Stated complaint: WEAKNESS Time Seen by Provider: 11/09/23 15:50 History of Present Illness: 78-year-old male presents to the emergen cy department via EMS personnel. Patient states he has had increased weakness increased shortness of breath and increased confusion. The patient is accompanied by his son who states he has been having difficulties with him over the previous 2 days and has increased work of breathing over the same duration. Patient's son states he has a history of COPD and does not utilize oxygen or a CPAP or BiPAP at home. The patient's son states the patient has become more confused and usually this happens when his CO2 is high. Review of Systems 2 General: Reports: 10 or more systems reviewed and unremarkable except in HPI and below Const: Reports: fatigue and malaise Resp: Reports: dyspnea, productive cough and wheezing PFSH ED 2 PFSH: Medical History (Updated 11/09/23 @ 21:18 by Oneal Horner MD) Hypertension COPD (chronic obstructive pulmonary disease) Diabetes Surgical History History of cholecystectomy History of carpal tunnel surgery of right wrist H/O hemorrhoidectomy H/O hernia repair Hx of tonsillectomy History of testicular surgery Social History Smoking and tobacco/nicotine status: current every day tobacco/nicotine user cigarettes Packs smoked per day: 1 Years cigarettes smoked: 66 [ Other cigarette details: Started in 6] Quit status (tobacco/nicotine): considering quitting Second hand smoke exposure: Yes Alcohol intake: never Substance/Drug Use: never Lives independently: Yes Household members: none Marital status: / service: No Current occupational status: retired Pets and animals: No Do you think of yourself as: Straight/Heterosexual Current gender identity: Male Physical Exam 2 Narrative: EXAM NARRATIVE: Constitutional: the patient appears well nourished and of normal development. Vital signs as documented. Obvious respiratory distress. Alert and oriented-to person, place, and situation. Unkept Head, eyes, ears, nose, mouth, throat: Normocephalic, atraumatic. Pupils-equal, round, reactive to light. No scleral icterus. Normal-appearing external ears. Normal appearing nasal turbinates, no drainage. No obvious oral lesions, posterior oropharynx without erythema or exudates. Neck: Supple, trachea is midline, no lymphadenopathy, no jugular venous distension, thyromegaly, or carotid bruits. Carotid upstrokes are brisk bilaterally. Lungs: Coarse wet sounding throughout. Increased work of breathing noted. Symmetrical rise and fall of chest, n Cardiac: Regular rate and rhythm, positive S1, S2. No murmurs, rubs or gallops that I can appreciate Abdomen: Soft, non-tender to palpation, normal active bowel sounds to all quadrants. No palpable masses, no organomegaly and abdominal bruits. Extremities: 2+ pulses in the upper extremities that are equal bilaterally, 2+ pulses in the lower extremities that are equal bilaterally. Non-edematous. Moves all extremities well, sensation to all extremities are noted. Skin: Warm, dry, intact. Neuro: Pleasantly confused, follows commands appropriately. Course 2 Vital Signs: Vital signs: Vital Signs Temperature 98.2 F 11/09/23 15:49 Pulse Rate 81 11/09/23 20:16 Respiratory Rate 30 H 11/09/23 20:16 Blood Pressure 128/75 11/09/23 19:15 Pulse Oximetry 96 11/09/23 20:16 Oxygen Delivery Me thod Nasal Cannula 11/09/23 19:15 Oxygen Flow Rate 3 11/09/23 19:15 MDM - Weakness Medical Decision Making Physical exam completed and documented, I will obtain a CBC CMP cardiac enzymes and EKG we will obtain a chest x-ray to evaluate for differential diagnosis to include CHF, COPD exacerbation, hypercapnia, pneumonia, Lab Data I reviewed the patient's lab results. 11/09/23 17:17 11/09/23 17:17 Radiology Impressions Chest X-Ray 11/09/23 15:55 IMPRESSION: 1. Mildly enlarged cardiac silhouette, pulmonary vascular congestion and trace right pleural effusion . 2. Moderate hyperinflation due to underlying COPD. Subtle right basilar patchy opacity suggestive of focal pneumonitis. Laboratory Results WBC 8.04 10^3/uL (3.29-11.43) 11/09/23 17:17 RBC 4.59 10^6/uL (3.85-5.65) 11/09/23 17:17 Hgb 12.80 g/dL (11.27-16.99) 11/09/23 17:17 Hct 42.1 % (37-53) 11/09/23 17:17 MCV 91.7 fl (82-101) 11/09/23 17:17 MCH 27.9 pg (27-33) 11/09/23 17:17 MCHC 30.4 g/dL (30-55) 11/09/23 17:17 RDW 14.6 % (12.1-15.1) 11/09/23 17:17 Plt Count 226 10^3/cmm (157-399) 11/09/23 17:17 MPV 10.1 fL (7.4-10.4) 11/09/23 17:17 Neut % (Auto) 93.3 % 11/09/23 17:17 Lymph % (Auto) 3.6 % 11/09/23 17:17 [place] % (Auto) 2.1 % 11/09/23 17:17 Eos % (Auto) 0.0 % 11/09/23 17:17 Baso % (Auto) 0.1 % 11/09/23 17:17 Neut # (Auto) 7.50 10^3/uL (1.8-7.7) 11/09/23 17:17 Lymph # (Auto) 0.3 10^3/uL (0.8-4.8) L 11/09/23 17:17 [place] # (Auto) 0.2 10^3/uL (0.2-0.9) 11/09/23 17:17 Eos # (Auto) 0.0 10^3/uL (0.0-0.8) 11/09/23 17:17 Baso # (Auto) 0.0 10^3/uL (0.0-0.1) 11/09/23 17:17 Nucleated RBC % (auto) 0 % 11/09/23 17:17 Nucleated RBCs # 0.0 /100WBC 11/09/23 17:17 PT 14.40 SECONDS (12.1-14.9) 11/09/23 17:17 INR 1.09 (0.8-1.2) 11/09/23 17:17 Specimen Type Arterial 11/09/23 19:54 Sample Site Brachial, left 11/09/23 19:54 ABG pH 7.26 (7.35-7.45) L 11/09/23 19:54 ABG pCO2 79.1 mmHg (35-45) H* 11/09/23 19:54 ABG pO2 84.9 mmHg (80.0-100.0) 11/09/23 19:54 ABG PO2/FiO2 Ratio 0 11/09/23 19:54 ABG HCO3 35.3 mmol/L (22-26) H 11/09/23 19:54 ABG O2 Saturation 95.9 11/09/23 19:54 ABG Base Excess 5.6 mmol/L (-2.0-2.0) H 11/09/23 19:54 Jey Test Pos 11/09/23 19:54 A-a O2 Gradient 4.9 mmHg (5-10) L 11/09/23 19:54 Hematocrit 39.0 % (42-52) L 11/09/23 19:54 Hgb O2 Saturation 92.0 % (95-100) L 11/09/23 19:54 Carboxyhemoglobin 3.5 %THgb (0.4-20.1) 11/09/23 19:54 Methemoglobin 0.5 % (0.4-1.5) 11/09/23 19:54 Total Hemoglobin 12.7 g/dL (14-18) L 11/09/23 19:54 Sodium 136.0 mmol/L (131-143) 11/09/23 19:54 Potassium 4.6 mmol/L (3.5-5.0) 11/09/23 19:54 Glucose 113.0 mg/dL (70-115) 11/09/23 19:54 Ionized Calcium 1.2 mmol/L (1.1-1.4) 11/09/23 19:54 O2 Delivery Device Nc 11/09/23 19:54 O2 Liters/Min 2.5 % 11/09/23 19:54 FiO2 30.0 % 11/09/23 19:54 Chief Ii Dispatcher ID [email or web address] 11/09/23 19:54 Sodium 134 mmol/L (136-145) L 11/09/23 17:17 Potassium 4.8 mmol/L (3.5-5.1) 11/09/23 17:17 Chloride 93 mmol/L (98-107) L 11/09/23 17:17 Carbon Dioxide 34 mmol/L (22-29) H 11/09/23 17:17 Anion Gap 11.8 (5-19) 11/09/23 17:17 BUN 30 mg/dL (8-23) H 11/09/23 17:17 Creatinine 1.7 mg/dL (0.7-1.2) H 11/09/23 17:17 GFR Calculation Not Reportable 11/09/23 17:17 Glucose 136 mg/dL (65-115) H 11/09/23 17:17 Calculated Osmolality 286 mOsm/kg (285-295) 11/09/23 17:17 Lactic Acid 1.1 mmol/L (0.5-2.2) 11/09/23 17:17 Calcium 8.9 mg/dL (8.5-10.5) 11/09/23 17:17 Total Bilirubin 0.3 mg/dL (0.15-1.2) 11/09/23 17:17 AST 22 U/L (0-40) 11/09/23 17:17 ALT 11 U/L (0-41) 11/09/23 17:17 Alkaline Phosphatase 59 U/L (40-130) 11/09/23 17:17 Troponin T Baseline 164 ng/L (0-15) H* 11/09/23 17:17 Troponin T 120 Minute 153.8 ng/L (0-15) H 11/09/23 19:27 Delta Troponin T -10.2 ABS# (0-10) L 11/09/23 19:27 NT-Pro-B Natriuret Pep 9635 pg/mL (0-450) H 11/09/23 17:17 Total Protein 6.4 g/dL (6.6-8.7) L 11/09/23 17:17 Albumin 3.5 g/dL (3.5-5.2) 11/09/23 17:17 Globulin 2.9 g/dL (1.3-4.6) 11/09/23 17:17 Procalcitonin 0.10 ng/mL (0-0.5) 11/09/23 17:17 Urine Color Yellow (Yellow) 11/09/23 16:45 Urine Appearance Clear (CLEAR) 11/09/23 16:45 Urine pH 5 (5-7) 11/09/23 16:45 Ur Specific [place] 1.030 (1.005-1.030) 11/09/23 16:45 Urine Protein Trace (Negative) 11/09/23 16:45 Urine Glucose (UA) Norm (Normal) 11/09/23 16:45 Urine Ketones Negative (Negative) 11/09/23 16:45 Urine Blood Neg (Negative) 11/09/23 16:45 Urine Nitrate Negative (Negative) 11/09/23 16:45 Urine Bilirubin 1+ (Negative) H 11/09/23 16:45 Urine Urobilinogen 1 mg/dL (Negative) H 11/09/23 16:45 Ur Leukocyte Esterase Negative (Negative) 11/09/23 16:45 Urine RBC 5-10 /hpf (0-2) H 11/09/23 16:45 Urine WBC 0-4 /hpf (0-5) H 11/09/23 16:45 Ur Squamous Epith Cells 0-4 /hpf (0-5) H 11/09/23 16:45 Amorphous Sediment 2+ /hpf 11/09/23 16:45 Urine Bacteria Trace /hpf (NONE) 11/09/23 16:45 Hyaline Casts 5-10 /lpf H 11/09/23 16:45 Urine Mucus 2+ /hpf 11/09/23 16:45 Influenza Type A Ag Negative (Negative) 11/09/23 16:11 Influenza Type B Ag Negative (Negative) 11/09/23 16:11 SARS-CoV-2 Ag (Rapid) negative (Negative) 11/09/23 16:11 All radiology interpretation(s) finalized by discharge EKG Data EKG 1: Interpretation: Twelve-lead EKG obtained at 2103 and reviewed at 2104 demonstrates normal sinus rhythm, ventricular rate of 83, DC interval 162 QRS duration 110 QT 333 QTc [address] elevation or depression to demonstrate acute ischemia or infarction at present. ABG Data ABG Interpretation 1: ABG results: Respiratory acidosis. pH 7.25 pCO2 79 pO2 84 Critical Care Time 2 Critical Care Time: Critical Care Time: Yes Total Critical Care Time: 65 Attestation: The patients was emergently evaluated as this patient's presentation and case had a high probability of a clinically significant, sudden, or life threatening deterioration of this patient's initial critical presentation or condition which required my full and direct attention, intervention and personal management. Discharge Plan Discharge Patient Disposition: Admitted As Inpatient Clinical Impression: Acute hypercapnic respiratory failure, COPD (chronic obstructive pulmonary disease), CHF (congestive heart failure), Acute renal failure (ARF) Condition: Stable Coding Level of Care Code ED Sales Marketing Manager for Jf Reagan
--- NOTE | 2023-11-09 18:58 | ECG_ITS ---
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 Measurements Intervals [place] Rate: 83 P: 67 IA: 162 QRS: 67 QRSD: 110 T: 48 QT: 333 QTc: 392 Interpretive Statements SINUS RHYTHM Compared to ECG 09/04/2023 15:08:29 No significant changes Electronically Signed On 11-10-2023 6:05:56 GRANULIZING MACHINE OPERATOR by Carlitos Carter M.D. [email or web address]/store/[id number]
[2023-11-09 19:52] LABS: Troponin(5th) Baseline 164 ng/L (0-15)
[2023-11-09 19:59] LABS: NT Pro B Type Natriuretic Pept 9635 pg/mL (0-450)
[2023-11-09 19:59] LABS: ABG PH Result 7.26 (7.35-7.45); Alveolar-Arterial Oxygen Gradi 4.9 mmHg (5-10); Base Excess ABG 5.6 mmol/L (-2.0-2.0); Blood Gas Allen Test Pos; Blood Gas LPM 2.5 %; Blood Gas Sample Site Brachial, left; Blood Gas Sample Type Arterial; Carboxyhemoglobin 3.5 %THgb (0.4-20.1); HCO3 ABG 35.3 mmol/L (22-26); Ionized Calcium Level - ABG 1.2 mmol/L (1.1-1.4); Methemoglobin 0.5 % (0.4-1.5); Oxygen Device NC; Oxygen Saturation ABG 95.9; PO2 ABG 84.9 mmHg (80.0-100.0); PO2 FiO2 Ratio Arterial Blood 0; Potassium Level - ABG 4.6 mmol/L (3.5-5.0); Total Hemoglobin 12.7 g/dL (14-18)
[2023-11-09 20:00] LABS: ABG PCO2 79.1 mmHg (35-45)
[2023-11-09 20:03] LABS: Troponin 5 2HR Delta -10.2 ABS# (0-10)
[2023-11-09 20:04] LABS: Troponin 5 2HR 153.8 ng/L (0-15)
--- NOTE | 2023-11-09 20:11 | PC.NURSE ---
pts son requests we let him know when pt is admitted.
--- NOTE | 2023-11-09 21:26 | CTR_ITS ---
PROCEDURE INFORMATION: Exam: CT Chest Without Contrast; Diagnostic Exam date and time: 11/09/2023 11:02 PM Age: 78 years old Clinical indication: Shortness of breath; Prior surgery; Surgery date: 6+ months; Surgery type: Gb; Patient HX: SOB with hypoxia. History of copd. TECHNIQUE: Imaging protocol: Diagnostic computed tomography of the chest without contrast. Radiation optimization: All CT scans at this facility use at least one of these dose optimization techniques: automated exposure control; mA and/or kV adjustment per patient size (includes targeted exams where dose is matched to clinical indication); or iterative reconstruction. COMPARISON: CT lung screening [id number] 08/09/2023 10:22 AM RADIATION DOSE METRICS: Total DLP (mGy-cm): 553.88 FINDINGS: Lungs: Severe centrilobular emphysema with apical bulla formation again demonstrated. New 5 mm right lung base nodule (series 5, image 14). Scattered punctate calcified lung granulomas again demonstrated. Stable 5 mm perifissural nodule in the right lower lobe (image 38). Relative volume loss in the right lung with mild rightward mediastinal shift, presumed contributed to by the right lower lobe atelectasis. [id number] focal airspace opacity and peribronchial thickening in the right lower lobe corresponding to the earlier radiographic opacity. Pleural spaces: Trace bilateral pleural effusions have developed, right greater than left . Heart: Mild cardiomegaly compared to prior imaging. Significantly enlarged main pulmonary arterial to 3.3 cm compatible with pulmonary arterial hypertension. Lymph nodes: 2.6 cm subcarinal lymph node is further slightly enlarged from 08/09/2023. A few other borderline mediastinal nodes again noted consistent with reactive etiology. Vasculature: See Heart finding. Bones/joints: Moderate endplate spurring throughout the thoracic spine. Soft tissues: Unremarkable. CT/CT chest wo con [id number] IMPRESSION: 1. Features of mild CHF including interval mild cardiomegaly and trace pleural effusions compared to 08/09/2023. Features of pulmonary arterial hypertension. 2. Mild-moderate atelectasis and airspace consolidation in the posterior right lower lobe, corresponding to the earlier radiographic finding . 3. Severe bullous emphysema . Relative interval volume loss in the right lung with mild rightward mediastinal shift presumed secondary to partial right lower lobe atelectasis. 4. New 5 mm n right middle lobe nodule. Follow-up in 12 months recommended according to the Fleischner guidelines. COMMENTS: The presence of pulmonary emphysema on CT is an independent risk factor for lung cancer. In the absence of a history or active diagnosis of lung cancer, it is recommended that this patient with emphysema be evaluated for enrollment in a low dose CT lung cancer screening program.
--- NOTE | 2023-11-09 22:19 | P.HP_ITS ---
Providers/Chief Complaint 2 Admitting Physician: Marcus Feliciano MD Primary Care Provider: Cornelia Ayala DO Chief Complaint: WEAKNESS History of Present Illness Jeremías A White is a 78 year old male with a past medical history of COPD, chronically on 2 L, current smoker, history of diastolic CHF, history of chronic respiratory failure, history of diabetes, hypertension, who presents to [facility] due to increased confusion, shortness of breath, weakness. Currently patient is alert to person, not to place, not to time, currently on BiPAP, he does awaken, but falls back asleep, only family member at bedside is patient's son, patient's son tells me that Noel lives at home by himself, for the last few days he has been talking to his father and his father has been complaining of shortness of breath, he has been not feeling well, he has been try to convince his father to come to the emergency room, his father thought he would not make it given the worsening shortness of breath, in the emergency room patient was found to have acute hypoxic hypercarbic respiratory failure, was placed on BiPAP, currently patient is in mild respiratory distress, nasal flaring intercostal retraction suprasternal retractions, tachycardia, tachypnea, crackles and wheezing in all lung schwarz, patient's son at bedside tells me that he is a heavy smoker Review of Systems 2 General: Reports: ROS unobtainable due to mental status Medications/Allergies Home Medications Medication Instructions Recorded Confirmed Last Taken Type glipizide 5 mg tablet 5 mg PO BID 11/10/19 09/11/23 09/04/23 History montelukast 10 mg tablet 10 mg PO BEDTIME 11/10/19 09/11/23 09/03/23 History (Singulair) omeprazole 20 mg capsule,delayed 20 mg PO DAILY 4 weeks 11/10/19 09/11/23 09/04/23 Rx release pravastatin 20 mg tablet 20 mg PO DAILY 11/10/19 09/11/23 09/04/23 History sitagliptin phosphate 50 mg tablet 50 mg PO DAILY 11/10/19 09/11/23 09/04/23 History (Januvia) tamsulosin 0.4 mg capsule (Flomax) 0.4 mg PO DAILY 11/10/19 09/11/23 09/03/23 History fluticasone fur. 100 mcg-umeclid 1 inh inhalation DAILY #60 ea 11/04/20 09/11/23 09/04/23 Rx 62.5 mcg-vilant 25 mcg inhalat.powder (Trelegy Ellipta) albuterol sulfate 90 mcg/actuation 2 puff inhalation Q6H PRN 07/27/23 09/11/23 Unknown History aerosol inhaler Shortness Of Breath Bacillus coagulans 1 billion cell 1 cell PO DAILY 09/04/23 09/11/23 09/04/23 History chewable tablet (Probiotic (B. coagulans)) aspirin 81 mg tablet,delayed 81 mg PO DAILY 09/04/23 09/11/23 09/04/23 History release cefdinir 300 mg capsule 300 mg PO BID #14 caps 09/04/23 09/11/23 Unknown Rx ciprofloxacin 0.3 %-dexamethasone 4 drp otic (ear) BID PRN Ear Pain 09/04/23 09/11/23 Unknown History 0.1 % ear drops,suspension furosemide 40 mg tablet 40 mg PO DAILY 09/04/23 09/11/23 09/04/23 History gabapentin 100 mg capsule 100 mg PO TID 09/04/23 09/11/23 09/04/23 History hydrocodone 10 mg-acetaminophen 1 - 2 tab PO Q46H PRN Pain 09/04/23 09/11/23 Unknown History 325 mg tablet ipratropium 0.5 mg-albuterol 3 mg 3 ml inhalation Q4H PRN Shortness 09/04/23 09/11/23 Unknown History (2.5 mg base)/3 mL nebulization Of Breath soln ipratropium 0.5 mg-albuterol 3 mg 3 ml inhalation Q4H PRN shortness 09/04/23 09/11/23 Unknown Rx (2.5 mg base)/3 mL nebulization of breath or wheezing #90 mL soln ipratropium 20 mcg-albuterol 100 1 puff inhalation Q6H 09/04/23 09/11/23 09/04/23 History mcg/actuation mist for inhalation (Combivent Respimat) latanoprost 0.005 % eye drops 1 drp ophthalmic (eye) BEDTIME 09/04/23 09/11/23 09/03/23 History levofloxacin 500 mg tablet 500 mg PO DAILY 09/04/23 09/11/23 09/03/23 History lisinopril 5 mg tablet 5 mg PO DAILY 09/04/23 09/11/23 09/04/23 History magnesium citrate (Citrate of 300 ml PO DAILY PRN Constipation 09/04/23 09/11/23 Unknown History Magnesia oral) mirtazapine 30 mg tablet 30 mg PO BEDTIME 09/04/23 09/11/23 09/03/23 History multivitamin 1 tab PO QAM 09/04/23 09/11/23 09/04/23 History naloxegol 25 mg tablet (Movantik) 25 mg PO QAM 09/04/23 09/11/23 09/04/23 History naloxone 0.4 mg/mL injection 0.4 mg SUBCUT Q3M PRN Opioid 09/04/23 09/11/23 Unknown History solution Overdose nitroglycerin 0.4 mg sublingual 0.4 mg sublingual Q5M PRN Chest 09/04/23 09/11/23 Unknown History tablet (Nitrostat) Pain potassium chloride 20 mEq 20 meq PO DAILY 09/04/23 09/11/23 09/04/23 History tablet,extended release(part/cryst) prednisolone acetate 1 % eye See Rx Instructions .Route .COMPLEX 09/04/23 09/11/23 Unknown History drops,suspension prednisone 20 mg tablet 20 mg PO TID #15 tabs 09/04/23 09/11/23 Unknown Rx propranolol 10 mg tablet 10 mg PO TID PRN TREMORS 09/04/23 09/11/23 Unknown History budesonide 0.5 mg/2 mL suspension 0.5 mg (2 mL) inhalation BID COPD 09/11/23 09/11/23 Unknown Rx for nebulization #120 mL formoterol fumarate 20 mcg/2 mL 2 ml inhalation BID #120 mL 09/11/23 09/11/23 Unknown Rx solution for nebulization (Perforomist) revefenacin 175 mcg/3 mL solution 175 mcg (3 mL) inhalation DAILY 09/11/23 09/11/23 Unknown Rx for nebulization (Yupelri) #90 mL Allergies Allergy/AdvReac Type Severity Reaction Status Date / Time buspirone Allergy ADR-Itching Verified 09/11/23 14:25 PFSH Acute 2 PFSH: Medical History (Updated 11/09/23 @ 22:24 by Marcus Feliciano MD) Hypertension COPD (chronic obstructive pulmonary disease) Diabetes Surgical History History of cholecystectomy History of carpal tunnel surgery of right wrist H/O hemorrhoidectomy H/O hernia repair Hx of tonsillectomy History of testicular surgery Social History Smoking and tobacco/nicotine status: current every day tobacco/nicotine user cigarettes Packs smoked per day: 1 Years cigarettes smoked: 66 [ Other cigarette details: Started in 1955] Quit status (tobacco/nicotine): considering quitting Second hand smoke exposure: Yes Alcohol intake: never Substance/Drug Use: never Lives independently: Yes Household members: none Marital status: / service: No Current occupational status: retired Pets and animals: No Do you think of yourself as: Straight/Heterosexual Current gender identity: Male Vitals/I&O/Wt Last Vital Signs Temp 98.2 F 11/09/23 15:49 Pulse 78 11/09/23 22:00 Resp 19 H 11/09/23 22:00 BP 110/49 11/09/23 22:00 Pulse Ox 86 L 11/09/23 21:45 O2 Del Method Nasal Cannula 11/09/23 19:15 O2 Flow Rate 3 11/09/23 19:15 FiO2 35 11/09/23 21:20 Weight last 48 hrs Weight 97.069 kg Physical Exam 2 Const: COMMON NORMALS: no acute distress EXAM LIMITATIONS: altered mental status ORIENTATION/CONSCIOUSNESS: Yes awake and Yes confused; not oriented to person, not oriented to place and not oriented to time HENMT: COMMON NORMALS: normocephalic HEAD & SCALP: normocephalic Eye: COMMON NORMALS: Equal, round and reactive pupils present Neck/C-Spine: COMMON NORMALS: no JVD Lymph: LYMPHATIC: no lymphadenopathy noted Chest: COMMONS NORMALS: normal inspection of the chest Resp: EFFORT & INSPECTION: Yes tachypneic, Yes respiratory distress and Yes retractions supraclavicular AUSCULTATION: crackles and wheezes Cardio: COMMON NORMALS: regular rate, regular rhythm, S1 normal heart sound present and S2 normal heart sound present RATE: regular rate RHYTHM: r egular rhythm HEART SOUNDS: S1 normal heart sound present and S2 normal heart sound present GI: COMMON NORMALS: Normal to inspection, nondistended, normoactive bowel sounds present, Soft to palpation and non-tender Extremity: NARRATIVE EXTREMITY EXAM: 2+ pitting edema bilateral extremities Neuro: OTHER: Does not follow neurologic testing Data 11/09/23 17:17 11/09/23 17:17 A&P Assessment and plan (1) Acute hypoxic on chronic hypercapnic respiratory failure: (2) COPD (chronic obstructive pulmonary disease): Qualifiers: COPD type: COPD with acute exacerbation Qualified Code(s): J44.1 - Chronic obstructive pulmonary disease with (acute) exacerbation (3) CHF (congestive heart failure): (4) Hypertension: (5) Acute renal failure (ARF): (6) NSTEMI (non-ST elevated myocardial infarction): (7) Acute exacerbation of chronic obstructive pulmonary disease: (8) Diastolic CHF, acute: (9) Diabetes: (10) Acute encephalopathy: Plan Acute encephalopathy ? Likely second to hypercarbia ? Neurochecks, n.p.o., aspiration precautions ? CT head Acute hypoxic hypercarbic respiratory failure, ? Likely multifactorial from COPD exacerbation, diastolic CHF exacerbation ? Plan, ? Monitor respiratory status closely, ? Repeat ABG in 2 hours, if Pco2 worsens, or if clinical condition worsens, low threshold for intubation ? Solu-Medrol 125 followed by 40 IV every 8 hours, ? IV doxycycline ? 40 mg IV push Lasix ? Monitor respiratory status closely ?monitor in ICU ? Pro-Trung, CRP, lactic acid -CT chest COPD exacerbation ? Active smoker Diastolic CHF exacerbation NSTEMI ? Type I versus type II ? Cannot rule out underlying cardiac etiology ? Plan ? Heparin drip ? Cardiac echo ? Venous ultrasound ? D-dimer ? Aspirin, statin Type 2 diabetes mellitus A1c low-dose sliding scale Full code ? Heparin drip for DVT prophylaxis Attestations 2 Medical Necessity Statement*: Patient requires hospitalization, inpatient, greater than 2 midnights, for acute hypoxic hypercarbic respiratory failure secondary to COPD, diastolic CHF with NSTEMI with acute renal failure with encephalopathy Diagnoses Acute hypoxic on chronic hypercapnic respiratory failure J96.01; J96.12 COPD (chronic obstructive pulmonary disease) J44.1 COPD type: COPD with acute exacerbation CHF (congestive heart failure) I50.9 Hypertension I10 Acute renal failure (ARF) N17.9 NSTEMI (non-ST elevated myocardial infarction) I21.4 Acute exacerbation of chronic obstructive pulmonary disease J44.1 Diastolic CHF, acute I50.31 Diabetes E11.9 Acute encephalopathy G93.40
[2023-11-09 22:46] LABS: Lactic Sepsis W/Reflex 0.8 mmol/L (0.5-2.2)
--- NOTE | 2023-11-09 23:21 | CTR_ITS ---
PROCEDURE INFORMATION: Exam: CT Head Without Contrast Exam date and time: 11/10/2023 4:57 AM Age: 78 years old Clinical indication: Altered mental status/memory loss; Patient HX: Severe lethargy and transient unresponsiveness. ; Additional info: AMS TECHNIQUE: Imaging protocol: Computed tomography of the head without contrast. Radiation optimization: All CT scans at this facility use at least one of these dose optimization techniques: automated exposure control; mA and/or kV adjustment per patient size (includes targeted exams where dose is matched to clinical indication); or iterative reconstruction. COMPARISON: No relevant prior studies available. RADIATION DOSE METRICS: Total DLP (mGy-cm): 1068.71 FINDINGS: Brain: No acute intracranial hemorrhage or mass effect. There is mild decreased attenuation in the periventricular white matter, likely from microvascular disease. No definite acute infarct by CT. MRI would be more sensitive/specific for detection, as clinically directed. Cerebral ventricles: Ventricle size is normal for age. Paranasal sinuses: Included paranasal sinuses are essentially clear. Mastoid air cells: No significant acute finding. Bones/joints: No definite acute skull fracture. Soft tissues: No significant acute finding. Vasculature: Vascular calcifications in the internal carotid arteries. CT/CT head wo con* [id number] IMPRESSION: 1. No acute intracranial hemorrhage or mass effect. 2. Changes of microvascular disease. 3. No definite acute infarct by CT, see above. 4. Other findings discussed above.
--- NOTE | 2023-11-09 23:30 | PC.NURSE ---
Addendum entered by Georgia Page RN 11/10/23 02:09: Unable to complete admission assessment d/t AMS. Admission retimed. Original Note: Arrival to ICU: pt arrived to ICU 3 @2310 11/09/23 via strecher. Pt is arrived lying flat on his back w/ 4L NC in place, appearing to be in respiratory distress. Pts face is dark red, pt is not responding to commands but does have his eyes open and can move all extremities. Breathing is shallow and labored. Upon asking pt orientation questions, pt has unclear/mumbled speech. Pt was transferred to bed and RT was called for BIPAP. Continuos cardiac monitoring applied. Pts respirations evened and became less labored post BIPAP application.
[2023-11-09] MEDS: ipratropium-albuterol 3 mL Neb INHALATION (23:37)
[2023-11-09] MEDS: heparin drip 25,000 UNIT/500 ML PREMIX 27.24 UNIT IV (23:59)
[2023-11-10] VITALS (44 sets, daily range): BP systolic 93–143; BP diastolic 51–79; PULSE 58–157; RESP 16–26; TEMP 36.4–37.2; O2SAT 87–97
[2023-11-10] MEDS: FUROsemide 10 mg/mL SDV 4mL 40 MG IVP (00:06)
[2023-11-10] MEDS: pantoprazole 40 mg SDV IVP ×2 (00:19→20:01)
[2023-11-10] MEDS: methylPREDNISolone sod succ 125 mg/2 mL INJ IVP (00:19)
[2023-11-10 00:34] LABS: D Dimer 1.11 ug/mLFEU (0-0.59)
[2023-11-10 00:43] LABS: Estmated Average Glucose 146; Hemoglobin A1C 6.7 % (4.0-6.0)
[2023-11-10 00:51] LABS: Chol HDL Ratio 2.15 mg/dL (1.0-5.00); Cholesterol 103 mg/dL (0-200); HDL Cholesterol 48 mg/dL (60-100); LDL Cholesterol Calculated 42 mg/dL (50-129); LDL HDL Ratio 0.88 RATIO (0.00-3.22); Triglycerides 67 mg/dL (0-150)
[2023-11-10] MEDS: doxycycline 100 MG in sodium chloride 0.9% (plus) 100 ML IV ×2 (00:58→11:11)
[2023-11-10 01:04] LABS: ABG PH Result 7.28 (7.35-7.45); Arterial Blood Gas Hematocrit 39.8 % (42-52); Base Excess ABG 5.4 mmol/L (-2.0-2.0); Blood Gas Operator Identificat JB; Blood Gas Sample Site Brachial, left; Blood Gas Sample Type Arterial; HCO3 ABG 34.7 mmol/L (22-26); Oxygen Device BIPAP; PO2 ABG 73.8 mmHg (80.0-100.0); PO2 FiO2 Ratio Arterial Blood 0
[2023-11-10 01:05] LABS: ABG PCO2 74.6 mmHg (35-45)
--- NOTE | 2023-11-10 02:10 | PC.NURSE ---
Addendum entered by Sepideh Bang RN 11/10/23 02:52: Counted money and went over belongings with ABAD Ho. Witnessed items and money being placed in Pyxis bin. Original Note: Patient Belongings: Pt belongings accessed w/ ABAD Bunn. Mehta/coins Total: 1353.94 Wallet w/ Drivers License 5 sets of keys - Above items placed in pt valuables envelope and locked in Pixis - Patient Valuables Envelope #[id number] Glasses and flip phone at bedside. Medications: Combivent Respimat (ipratopium bromide and albuterol inhalation spray) Dexamethason Levofloxacin Nitro Sublingual 4 pills unlabeled in a small round pill case. - Above medications locked in Pixis.
[2023-11-10] MEDS: ipratropium-albuterol 3 mL Neb INHALATION ×6 (03:43→23:45)
--- NOTE | 2023-11-10 06:00 | USR_ITS ---
PROCEDURE INFORMATION: Exam: US Duplex Lower Extremity Veins, Bilateral Exam date and time: 11/10/2023 2:15 PM Age: 78 years old Clinical indication: Other: SOB TECHNIQUE: Imaging protocol: Real-time duplex ultrasound of the bilateral extremities with 2-D basilio scale, color Doppler flow and spectral waveform analysis including responses to compression and other maneuvers (when performed) with image documentation. Complete exam focused on the lower extremity veins. COMPARISON: CT abdomen pelvis w con* [id number] 01/24/2019 7:47 AM FINDINGS: Right deep veins: The common femoral, femoral, proximal profunda femoral, poplitea, posterior tibial, and peroneal veins are patent without thrombus. Normal compressibility and/or augmentation response. Left deep veins: The common femoral, femoral, proximal profunda femoral, popliteal, posterior tibial, and peroneal veins are patent without thrombus. Normal compressibility and/or augmentation response. Superficial veins: There is occlusive superficial thrombus within the right greater saphenous vein at the level of the right knee. Soft tissues: Mild subcutaneous edema at the right calf. US/CV venous duplex [facility] [id number] IMPRESSION: 1. No evidence for deep venous thrombosis in the right or left lower extremities. 2. There is occlusive superficial thrombus within the right greater saphenous vein at the level of the right knee. 3. Mild subcutaneous edema at the right calf.
--- NOTE | 2023-11-10 06:00 | USCV_ITS ---
Jeremías Edouard Age: 78 Gender: M : 1945 Exam Date: 11/10/2023 17:58 Ordering Phys: Marcus Feliciano MD Technologist: Scar Blount Exam Location: [facility] – [place] Indication: nstemi BP: 120 / 52 HR: 96 Rhythm: Sinus Technical Quality: Poor MEASUREMENTS (Male / Female) Normal Values 2D ECHO LV Ejection Fraction MOD 2C 62.4 % LV Ejection Fraction 2C AL 62.1 % LA Width 4.0 cm LA Height 3.7 cm RA Width 4.5 cm RA Height 3.9 cm IVC Diameter 1.8 cm DOPPLER AV Peak Velocity 148.3 cm/s LVOT Peak Velocity 129.0 cm/s MV Peak Velocity 95.0 cm/s MV Area PHT 6.6 cm squared Mitral E to A Ratio 0.9 MV E' Velocity 56.2 cm/s Mitral E to MV E' Ratio 18.0 Mitral E to LV E' Lateral Ratio 24.1 Mitral E to LV E' Septal Ratio 14.3 Right Atrial Pressure 3.0 mmHg FINDINGS Left Ventricle Study is poor and limited. No parasternal views are available. There is limited availability of the apical and subcostal views. Grade 1 diastolic dysfunction. The overall ejection fraction is likely within normal limits probably around 55 or 60%. No wall motion disturbances detected in the views available. Right Ventricle Normal right ventricular size and systolic function. Normal right ventricular systolic pressure. Right Atrium The right atrium is normal in size. Left Atrium The left atrium is normal in size. Mitral Valve Structurally normal mitral valve. Aortic Valve Structurally normal trileaflet aortic valve. Tricuspid Valve Structurally normal tricuspid valve. Pulmonic Valve Pulmonic valve not well visualized. Pericardium Normal pericardium without effusion. Aorta Aorta not well visualized. IVC Inferior vena cava not visualized. CONCLUSIONS Study is poor and limited. No parasternal views are available. There is limited availability of the apical and subcostal views. Grade 1 diastolic dysfunction. The overall ejection fraction is likely within normal limits probably around 55 or 60%. No wall motion disturbances detected in the views available. Doppler interrogation was inadequate for valvular assessment. The previous echo was from July of last year. Multiple abnormalities were noted on that echo including a dilated right atrium and ventricle with mild elevation in the pulmonary pressures, mildly dilated aortic root. Those abnormalities are not seen on today's study because of the poor quality of the images. Dr. Cecil Lu MD (Electronically Signed) Final Date: 11 November 2023 08:26 S
[2023-11-10 07:18] LABS: Glucose Point of Care 219 mg/dL (70-110)
[2023-11-10 07:21] LABS: Hematocrit 41.9 % (37-53); Lymphocytes # 0.4 10^3/uL (0.8-4.8); Lymphocytes % 4.8 %; Mean Corpuscular HGB Conc 30.5 g/dL (30-55); Mean Corpuscular Hemoglobin 28.3 pg (27-33); Mean Corpuscular Volume 92.5 fl (82-101); Mean Platelet Volume 10.5 fL (7.4-10.4); Monocytes # 0.3 10^3/uL (0.2-0.9); Monocytes % 3.5 %; Neutrophils # 6.58 10^3/uL (1.8-7.7); Nucleated Red Blood Cells % 0.3 %; Platelet Count 207 10^3/cmm (157-399); Red Blood Count 4.53 10^6/uL (3.85-5.65); Red Cell Distribution Width 14.6 % (12.1-15.1); White Blood Count 7.23 10^3/uL (3.29-11.43)
[2023-11-10 07:41] LABS: Partial Thromboplastin Time 55.9 SECONDS (23.9-36.7)
[2023-11-10] MEDS: methylPREDNISolone sod succ 40 mg/mL INJ IVP ×3 (07:48→23:13)
[2023-11-10 07:54] LABS: Blood Urea Nitrogen 26 mg/dL (8-23); Calcium 8.9 mg/dL (8.5-10.5); Carbon Dioxide 31 mmol/L (22-29); Chloride 95 mmol/L (98-107); Glucose 131 mg/dL (65-115); Osmolality Calculated 293 mOsm/kg (285-295); Phosphorus 3.8 mg/dL (2.5-4.5); Sodium 138 mmol/L (136-145)
[2023-11-10 08:04] LABS: NT Pro B Type Natriuretic Pept 6767 pg/mL (0-450)
[2023-11-10] MEDS: budesonide 0.5 mg/2 mL Neb 0.25 MG INHALATION (08:16)
[2023-11-10] MEDS: aspirin 81 mg EC Tablet PO (08:17)
[2023-11-10] MEDS: tamsulosin 0.4 mg Capsule PO (08:17)
[2023-11-10 10:35] LABS: ABG PCO2 51.3 mmHg (35-45); ABG PH Result 7.41 (7.35-7.45); Alveolar-Arterial Oxygen Gradi 12.1 mmHg (5-10); Arterial Blood Gas Hematocrit 40.2 % (42-52); Base Excess ABG 6.6 mmol/L (-2.0-2.0); Blood Gas Allen Test Pos; Blood Gas Operator Identificat MONRO; Blood Gas Sample Site Brachial, right; Blood Gas Sample Type Arterial; HCO3 ABG 32.6 mmol/L (22-26); HGB O2 Sat 91.6 % (95-100); Ionized Calcium Level - ABG 1.2 mmol/L (1.1-1.4); Methemoglobin 0.2 % (0.4-1.5); Oxygen Device BIPAP; Oxygen Saturation ABG 93.7; PO2 ABG 63.2 mmHg (80.0-100.0); PO2 FiO2 Ratio Arterial Blood 0; Potassium Level - ABG 4.6 mmol/L (3.5-5.0); Total Hemoglobin 13.1 g/dL (14-18)
--- NOTE | 2023-11-10 10:44 | PC.NURSE ---
Dr. Castelan at bedside. New set of blood gases obtained. Family at bedside. All questions answered at this time. Pt is awake and oriented. Dr. Castelan orders soft mechanical diet for pt. and states to take patient off of BIPAP for approx 45 minutes for lunch. DC Heaprin gtt and start patient on Lovenox in 4 hours.
[2023-11-10 11:12] LABS: Glucose Point of Care 217 mg/dL (70-110)
--- NOTE | 2023-11-10 13:04 | PC.PHAR ---
pt states he takes care of his own medications-pt states he takes singulair 10mg daily ext doesnt show when last filled pts pharmacy not open to verify when last filled-pt states he wants a rx for trelegy states it works better than the neb meds-ext shows last filled 09/01/23 30d/s-pt states for his neb meds he pays over 400 dollars a month and states the trelegy is covered by his insurance-
--- NOTE | 2023-11-10 13:07 | P.PN_ITS ---
Subjective 2 Subjective: Patient this morning is slightly better Awake and alert Family is at the bedside 3 sisters and a brother at the bedside Patient is stating that he would never want chest compressions defibrillation or intubation, family is well aware of his wishes Change CODE STATUS to DNR/DNI Requested stat ABG which showed improvement of hypercapnia Patient is able to make decision for himself He is not confused at all Echo report is pending Potassium 5.0, creatinine normal. I have switched his heparin to therapeutic Lovenox regimen No active chest pain Patient is stating that he did experience chest pain at home As per the family patient is a chain smoker noncompliant, he was prescribed 2 L of oxygen in the past Vitals/I&O/Wt Last Vital Signs Temp 98.9 F 11/10/23 07:29 Pulse 75 11/10/23 12:00 Resp 16 11/10/23 12:00 BP 103/52 11/10/23 12:00 Pulse Ox 95 11/10/23 11:05 O2 Del Method BiPAP 11/10/23 11:04 O2 Flow Rate 8 11/09/23 23:45 FiO2 30 11/10/23 11:05 11/09/23 11/10/23 11/10/23 22:59 06:59 14:59 Intake Total 100 / 100 310.656 / 310.656 Output Total 1100 / 1100 Balance -1000 / -1000 310.656 / 310.656 Weight last 48 hrs Weight 97.296 kg Weight 97.069 kg Physical Exam 2 Narrative: Currently on BiPAP Awake and alert Improving No active chest pain Asterixis positive I do not see any signs of confusion No active encephalopathy Pleasant and cooperative S1, S2 variable Abdomen soft Lower extremity no edema Urinary Catheter Management: Watson: Cath Placed During This Visit: yes Reason for Continuing Indwelling Catheter: Accurate Measurement of Urinary Output in Critically Ill Patients Urinary Catheter Date of Insertion: 11/09/23 Urinary Catheter Time of Insertion: 23:42 Data 11/10/23 06:44 11/10/23 06:44 A&P Assessment and plan (1) Hypertension: (2) CHF (congestive heart failure): (3) Diastolic CHF, acute: (4) NSTEMI (non-ST elevated myocardial infarction): (5) Diabetes: (6) Acute renal failure (ARF): (7) Acute encephalopathy: (8) COPD (chronic obstructive pulmonary disease): Qualifiers: COPD type: COPD with acute exacerbation Qualified Code(s): J44.1 - Chronic obstructive pulmonary disease with (acute) exacerbation (9) Acute hypercapnic respiratory failure: (10) Acute hypoxic on chronic hypercapnic respiratory failure: (11) Smoker: Plan Acute hypoxic hypercapnic respite failure: Improving on BiPAP No need of intubation Patient and family change his CODE STATUS to DNR/DNI Family meeting conducted today at the bedside ICU nurse was present as well Stat ABG showed improvement of hypercapnia as well Patient will be given a break from BiPAP to allow him to have lunch, which should put him back on BiPAP Non-STEMI No active chest pain Echo report is pending I will change heparin drip to therapeutic Lovenox twice a day regimen Patient is not an ideal candidate to go for an angiogram as he does not want to be intubated Asymptomatic MALINI: Improved COPD exacerbation secondary to pneumonia and active smoking Continue antibiotics DNR/DNI CODE STATUS changed Mechanical soft diet Patient and family agreeable for group home placement Will watch in next 72 hours if he becomes BiPAP dependent versus able to compensate for his underlying COPD As per the family he is a chain smoker Does not use oxygen compliantly Attestations 2 Medical Necessity Statement*: Continue ICU management today Coding Level of Care Code Critical Care >/= 30 minutes Critical care time (in minutes): 50 The high probability of a clinically significant, sudden or life threatening deterioration, as referenced in this documentation, required my full and direct attention, intervention and personal management. The critical care time shown is in addition to time spent performing any reported separately billable procedures and includes the following: [x] Data and vital sign review and interpretation [x ] Patient assessment, examination and intervention [x] Medication orders and management [x] Patient/Family updates as able [x] Care Coordination and Documentation. Diagnoses Hypertension I10 CHF (congestive heart failure) I50.9 Diastolic CHF, acute I50.31 NSTEMI (non-ST elevated myocardial infarction) I21.4 Diabetes E11.9 Acute renal failure (ARF) N17.9 Acute encephalopathy G93.40 COPD (chronic obstructive pulmonary disease) J44.1 COPD type: COPD with acute exacerbation Acute hypercapnic respiratory failure J96.02 Acute hypoxic on chronic hypercapnic respiratory failure J96.01; J96.12 Smoker F17.200
[2023-11-10] MEDS: insulin lispro 100 unit/1 mL SUBCUT ×2 (13:12→18:23)
[2023-11-10] MEDS: enoxaparin 100 mg/mL Syringe SUBCUT (13:12)
--- NOTE | 2023-11-10 13:18 | PC.NURSE ---
awake and alert at this time daughter in room, answering all questions appropriatly asked pt about sending medication and money that is locked up in pyxis with family member and he requsted at this time that we leave it where it is
[2023-11-10] MEDS: FUROsemide 10 mg/mL SDV 2mL 20 MG IVP (13:42)
--- NOTE | 2023-11-10 14:34 | PC.NURSE ---
pt upset and angry , son in room and tech attempting to do echo and doppler studies.. He has requested bipap machine off and to put him on just nasal oxygen and that he wants his pain medication that he takes every 4 hours at home message to doctor
[2023-11-10] MEDS: HYDROcodone-acetaminophen 5-325 mg Tablet 1 TAB PO ×2 (14:55→18:22)
--- NOTE | 2023-11-10 16:30 | PC.NURSE ---
resting after pain medication allowed to be placed back on bipap
[2023-11-10 17:37] LABS: Glucose Point of Care 211 mg/dL (70-110)
[2023-11-10] MEDS: doxycycline 100 mg Tablet PO (18:22)
[2023-11-10] MEDS: atorvastatin 40 mg Tablet 20 MG PO (20:01)
[2023-11-10 21:17] LABS: Glucose Point of Care 172 mg/dL (70-110)
[2023-11-11] VITALS (26 sets, daily range): BP systolic 97–130; BP diastolic 50–71; PULSE 59–100; RESP 16–27; TEMP 36.4–37.4; O2SAT 90–97
[2023-11-11] MEDS: enoxaparin 100 mg/mL Syringe SUBCUT ×2 (02:44→14:30)
[2023-11-11] MEDS: ipratropium-albuterol 3 mL Neb INHALATION ×5 (03:41→20:38)
[2023-11-11 04:51] LABS: Hematocrit 39.4 % (37-53); Lymphocytes # 0.2 10^3/uL (0.8-4.8); Lymphocytes % 4.3 %; Mean Corpuscular HGB Conc 31.2 g/dL (30-55); Mean Corpuscular Hemoglobin 27.8 pg (27-33); Mean Corpuscular Volume 88.9 fl (82-101); Mean Platelet Volume 10.8 fL (7.4-10.4); Monocytes # 0.4 10^3/uL (0.2-0.9); Monocytes % 7.1 %; Neutrophils # 4.97 10^3/uL (1.8-7.7); Neutrophils % 88.1 %; Nucleated Red Blood Cells % 0 %; Platelet Count 216 10^3/cmm (157-399); Red Blood Count 4.43 10^6/uL (3.85-5.65); Red Cell Distribution Width 14.6 % (12.1-15.1); White Blood Count 5.64 10^3/uL (3.29-11.43)
[2023-11-11 05:10] LABS: Anion Gap 10.8 (5-19); Blood Urea Nitrogen 34 mg/dL (8-23); Carbon Dioxide 35 mmol/L (22-29); Chloride 96 mmol/L (98-107); Glucose 255 mg/dL (65-115); Osmolality Calculated 300 mOsm/kg (285-295); Potassium 4.8 mmol/L (3.5-5.1); Sodium 137 mmol/L (136-145)
[2023-11-11] MEDS: HYDROcodone-acetaminophen 5-325 mg Tablet 1 TAB PO ×2 (05:59→14:46)
[2023-11-11 07:31] LABS: Glucose Point of Care 270 mg/dL (70-110)
--- NOTE | 2023-11-11 08:09 | PC.NURSE ---
angry and upset ,, requesting home medications and to let him go home and that he is going .. we are making him sicker refuses insulin and steroids .. doctor and son called .. offered am breakfast and pt remained angry stating no i am going home one way or another
[2023-11-11] MEDS: budesonide 0.5 mg/2 mL Neb 0.25 MG INHALATION (08:22)
[2023-11-11] MEDS: clopidogrel 75 mg Tablet PO (09:09)
[2023-11-11] MEDS: tamsulosin 0.4 mg Capsule PO (09:09)
[2023-11-11] MEDS: doxycycline 100 mg Tablet PO ×2 (09:09→17:20)
[2023-11-11] MEDS: insulin lispro 100 unit/1 mL SUBCUT ×2 (09:10→17:20)
[2023-11-11] MEDS: cefTRIAXone 1,000 MG in sodium chloride 0.9% (plus) 50 ML 100 MG IV (09:10)
[2023-11-11] MEDS: aspirin 81 mg EC Tablet PO (09:10)
--- NOTE | 2023-11-11 09:35 | PC.NURSE ---
doctor in talk to pt ,, will stay if move out of icu and not wear bipap will get reardon out ... pt agreed to stay until tommorow.... but no more steroids
--- NOTE | 2023-11-11 10:31 | PC.NURSE ---
son here , money , medication, and keys return to pt cary amt of 1353.94 witness per son eula Hodges rn and my self and pt all agree and sign .. pt they turned belonging to son who put money inside pts wallet to take home
[2023-11-11 11:05] LABS: Glucose Point of Care 137 mg/dL (70-110)
--- NOTE | 2023-11-11 11:27 | PM.PN ---
Subjective Subjective: Patient does not want to use steroids or insulin Does not want to use BiPAP refused ABG He wants to go home However agreeable to stay home if I transfer out of ICU Transfer out of ICU to [facility] Vitals/I&O/Wt Last Vital Signs Temp 98.4 F 11/11/23 07:32 Pulse 74 11/11/23 11:16 Resp 16 11/11/23 11:12 BP 130/66 11/11/23 11:00 Pulse Ox 92 11/11/23 11:12 O2 Del Method Nasal Cannula 11/11/23 11:12 O2 Flow Rate 3 11/11/23 11:12 FiO2 35 11/11/23 03:43 11/10/23 11/11/23 11/11/23 22:59 06:59 14:59 Intake Total 400 / 710.656 360 / 1070.656 170 / 170 Output Total 800 / 800 350 / 1150 Balance -400 / -89.344 10 / -79.344 170 / 170 Weight last 48 hrs Weight 97.296 kg Weight 97.069 kg Physical Exam Narrative: Euvolemic Pleasant cooperative GCS 15 Currently on 2 L Pleasant cooperative No audible stridor or wheezing Lower extremity no swelling Abdomen soft No communication issues at all Nonfocal neuroexam Pleasant and cooperative no sign of meningitis Urinary Catheter Management: Watson: Cath Placed During This Visit: yes Reason for Continuing Indwelling Catheter: Accurate Measurement of Urinary Output in Critically Ill Patients Urinary Catheter Date of Insertion: 11/09/23 Urinary Catheter Time of Insertion: 23:42 Data 11/11/23 03:57 11/11/23 03:57 A&P Assessment and plan (1) Hypertension: (2) CHF (congestive heart failure): (3) Diastolic CHF, acute: (4) NSTEMI (non-ST elevated myocardial infarction): (5) Diabetes: (6) Acute encephalopathy: (7) COPD (chronic obstructive pulmonary disease): Qualifiers: COPD type: COPD with acute exacerbation Qualified Code(s): J44.1 - Chronic obstructive pulmonary disease with (acute) exacerbation (8) Acute hypoxic on chronic hypercapnic respiratory failure: (9) Acute hypercapnic respiratory failure: (10) Non-compliant behavior: Plan Patient does not want to use BiPAP anymore Refusing insulin as well Refused ABG this morning Agreeable to stay in the hospital for transfer out of ICU I will transfer him to [facility] Discontinue steroids Continue insulin however add Januvia which she uses at home Acute renal failure: Resolved Acute hypoxic hypercarbic respiratory failure Currently on 2 L No active encephalopathy Hypercapnic encephalopathy: Resolved Preserved ejection fraction heart failure no acute exacerbation No active chest pain Echo did not show any wall motion abnormality Type II MS? Patient does not want to go to angiogram He is wanting to go home I would like to keep him here 1 more day request PT and depending on PT evaluation will decide disposition plan DNR/DNI Advance diet to consistent carb diet Attestations Medical Necessity Statement*: Discharge likely tomorrow Diagnoses Hypertension I10 CHF (congestive heart failure) I50.9 Diastolic CHF, acute I50.31 NSTEMI (non-ST elevated myocardial infarction) I21.4 Diabetes E11.9 Acute encephalopathy G93.40 COPD (chronic obstructive pulmonary disease) J44.1 COPD type: COPD with acute exacerbation Acute hypoxic on chronic hypercapnic respiratory failure J96.01; J96.12 Acute hypercapnic respiratory failure J96.02 Non-compliant behavior R46.89
[2023-11-11] MEDS: FUROsemide 10 mg/mL SDV 2mL 20 MG IVP (12:28)
--- NOTE | 2023-11-11 12:34 | PC.NURSE ---
report given for transfer to room 257
--- NOTE | 2023-11-11 12:56 | PC.NURSE ---
transfer to 2nd floor per wheelchair
[2023-11-11 16:54] LABS: Glucose Point of Care 219 mg/dL (70-110)
[2023-11-11] MEDS: mirtazapine 15 mg Tablet PO (20:01)
[2023-11-11] MEDS: atorvastatin 40 mg Tablet 20 MG PO (20:01)
[2023-11-11] MEDS: trazodone 50 mg Tablet PO (20:01)
[2023-11-11 20:21] LABS: Glucose Point of Care 130 mg/dL (70-110)
[2023-11-12] VITALS (8 sets, daily range): BP systolic 114–138; BP diastolic 57–73; PULSE 82–108; RESP 16–18; TEMP 36.6–37.1; O2SAT 91–97
[2023-11-12] MEDS: ipratropium-albuterol 3 mL Neb INHALATION ×3 (00:06→08:18)
[2023-11-12] MEDS: enoxaparin 100 mg/mL Syringe SUBCUT (02:29)
[2023-11-12 05:52] LABS: Basophils % 0.1 %; Eosinophils % 0.2 %; Hematocrit 41.1 % (37-53); Lymphocytes % 11.9 %; Mean Corpuscular HGB Conc 30.2 g/dL (30-55); Mean Corpuscular Hemoglobin 27.7 pg (27-33); Mean Corpuscular Volume 91.9 fl (82-101); Mean Platelet Volume 9.7 fL (7.4-10.4); Monocytes # 1.1 10^3/uL (0.2-0.9); Monocytes % 13.5 %; Neutrophils # 5.99 10^3/uL (1.8-7.7); Neutrophils % 74.1 %; Nucleated Red Blood Cells % 0 %; Platelet Count 217 10^3/cmm (157-399); Red Blood Count 4.47 10^6/uL (3.85-5.65); Red Cell Distribution Width 14.7 % (12.1-15.1); White Blood Count 8.09 10^3/uL (3.29-11.43)
[2023-11-12 06:12] LABS: Anion Gap 7.6 (5-19); Blood Urea Nitrogen 29 mg/dL (8-23); Calcium 9.3 mg/dL (8.5-10.5); Carbon Dioxide 40 mmol/L (22-29); Chloride 100 mmol/L (98-107); Glucose 104 mg/dL (65-115); Osmolality Calculated 302 mOsm/kg (285-295); Potassium 4.6 mmol/L (3.5-5.1); Sodium 143 mmol/L (136-145)
[2023-11-12 06:31] LABS: Glucose Point of Care 123 mg/dL (70-110)
[2023-11-12] MEDS: aspirin 81 mg EC Tablet PO (08:46)
[2023-11-12] MEDS: doxycycline 100 mg Tablet PO (08:46)
[2023-11-12] MEDS: tamsulosin 0.4 mg Capsule PO (08:46)
[2023-11-12] MEDS: HYDROcodone-acetaminophen 5-325 mg Tablet 1 TAB PO (08:46)
[2023-11-12] MEDS: clopidogrel 75 mg Tablet PO (08:46)
--- NOTE | 2023-11-12 11:19 | P.DS_ITS ---
Discharge Providers Date of Admission: 11/09/23 21:15 Date of Discharge: November 12, 2023 Attending Provider at Admission: Marcus Feliciano MD Attending Provider at Discharge: Abel Castelan MD Primary Care Provider: Cornelia Ayala DO Diagnoses at Discharge Discharge Diagnosis (1) Hypertension: Status: Acute (2) CHF (congestive heart failure): Status: Acute (3) Diastolic CHF, acute: Status: Acute (4) NSTEMI (non-ST elevated myocardial infarction): Status: Acute (5) Diabetes: Status: Acute (6) Acute encephalopathy: Status: Acute (7) COPD (chronic obstructive pulmonary disease): Status: Acute Qualifiers: COPD type: COPD with acute exacerbation Qualified Code(s): J44.1 - Chronic obstructive pulmonary disease with (acute) exacerbation (8) Acute hypoxic on chronic hypercapnic respiratory failure: Status: Acute (9) Acute hypercapnic respiratory failure: Status: Acute (10) Non-compliant behavior: Status: Acute Reason for Visit Reason for Visit: WEAKNESS Hospital Course Hospital Course 78-year-old male who was admitted to the hospital for management evaluation of hypoxic hypercarbic respiratory failure,Secondary to rising troponin he was put on ACS protocol, echo did not show wall motion abnormality, shows preserved ejection fraction, ACS protocol was discontinued, patient mentation improved he started refusing ABG, BiPAP, he was upset that we are not giving metformin glipizide and causing high blood sugar with use of steroids. He has been noncooperative, he has been chain smoking as per the family, CODE STATUS was changed to DNR/DNI on request of patient which was discussed with the family as well, patient is stating that he will leave AMA, it is at best interest of the patient that I discharged him with appropriate medications, I have counseled him regarding smoking cessation and I highly doubt he will stop smoking at this point at baseline he uses 2 L of oxygen, He does not want to use BiPAP at all, he is okay with using 2 L of oxygen at home I do believe his symptoms got exacerbated due to active smoking, use of sedatives such as trazodone which she takes at night his previous ABG showed compensated pH with hypercapnia, MALINI improved as well clinically he is doing much better he is awake and alert able to get up from his recliner to the bed on his own Patient has no encephalopathy,, I do not suspect any signs of depression or incapacity to make decisions, Physical Exam Narrative: Clinically euvolemic Currently on 2 L No active crackles Active chest pain After shortness of breath Pleasant cough GC 50 He got out of recliner and sat in the bed on his own without any assistance Able to make decision for himself Urinary Catheter Management: Watson: Cath Placed During This Visit: yes Reason for Continuing Indwelling Catheter: Accurate Measurement of Urinary Output in Critically Ill Patients Urinary Catheter Date of Insertion: 11/09/23 Urinary Catheter Time of Insertion: 23:42 Discharge Data Studies Completed and Pending Completed Studies During Hospitalization Category Date Time Status CT chest wo con [id number] Stat Cat Scan 11/09/23 21:[address] head wo con* [id number] Routine Cat Scan 11/09/23 23:21 Completed XR chest 1V portable [id number] Stat Exams 11/09/23 15:55 [place] [id number] Routine Ultrasound 11/10/23 06:00 Completed CV. echo complete* [id number] Routine Ultrasound 11/10/23 06:00 Completed Pending at discharge Category Date Time Status Blood Cultures ([facility]) Routine Lab 11/09/23 22:01 Received Blood Cultures ([facility]) Routine Lab 11/09/23 22:07 Received Sputum Culture and Gram Stain Stat Lab 11/09/23 21:26 Uncollected Radiology Impressions Chest X-Ray 11/09/23 15:55 IMPRESSION: 1. Mildly enlarged cardiac silhouette, pulmonary vascular congestion and trace right pleural effusion . 2. Moderate hyperinflation due to underlying COPD. Subtle right basilar patchy opacity suggestive of focal pneumonitis. Chest CT 11/09/23 21:26 IMPRESSION: 1. Features of mild CHF including interval mild cardiomegaly and trace pleural effusions compared to 08/09/2023. Features of pulmonary arterial hypertension. 2. Mild-moderate atelectasis and airspace consolidation in the posterior right lower lobe, corresponding to the earlier radiographic finding . 3. Severe bullous emphysema . Relative interval volume loss in the right lung with mild rightward mediastinal shift presumed secondary to partial right lower lobe atelectasis. 4. New 5 mm n right middle lobe nodule. Follow-up in 12 months recommended according to the Fleischner guidelines. COMMENTS: The presence of pulmonary emphysema on CT is an independent risk factor for lung cancer. In the absence of a history or active diagnosis of lung cancer, it is recommended that this patient with emphysema be evaluated for enrollment in a low dose CT lung cancer screening program. Head CT 11/09/23 23:21 IMPRESSION: 1. No acute intracranial hemorrhage or mass effect. 2. Changes of microvascular disease. 3. No definite acute infarct by CT, see above. 4. Other findings discussed above. Venous Duplex 11/10/23 06:00 IMPRESSION: 1. No evidence for deep venous thrombosis in the right or left lower extremities. 2. There is occlusive superficial thrombus within the right greater saphenous vein at the level of the right knee. 3. Mild subcutaneous edema at the right calf. 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 Laboratory Results WBC 8.09 10^3/uL (3.29-11.43) 11/12/23 05:37 RBC 4.47 10^6/uL (3.85-5.65) 11/12/23 05:37 Hgb 12.40 g/dL (11.27-16.99) 11/12/23 05:37 Hct 41.1 % (37-53) 11/12/23 05:37 MCV 91.9 fl (82-101) 11/12/23 05:37 MCH 27.7 pg (27-33) 11/12/23 05:37 MCHC 30.2 g/dL (30-55) 11/12/23 05:37 RDW 14.7 % (12.1-15.1) 11/12/23 05:37 Plt Count 217 10^3/cmm (157-399) 11/12/23 05:37 MPV 9.7 fL (7.4-10.4) 11/12/23 05:37 Neut % (Auto) 74.1 % 11/12/23 05:37 Lymph % (Auto) 11.9 % 11/12/23 05:37 [place] % (Auto) 13.5 % 11/12/23 05:37 Eos % (Auto) 0.2 % 11/12/23 05:37 Baso % (Auto) 0.1 % 11/12/23 05:37 Neut # (Auto) 5.99 10^3/uL (1.8-7.7) 11/12/23 05:37 Lymph # (Auto) 1.0 10^3/uL (0.8-4.8) 11/12/23 05:37 [place] # (Auto) 1.1 10^3/uL (0.2-0.9) H 11/12/23 05:37 Eos # (Auto) 0.0 10^3/uL (0.0-0.8) 11/12/23 05:37 Baso # (Auto) 0.0 10^3/uL (0.0-0.1) 11/12/23 05:37 Nucleated RBC % (auto) 0 % 11/12/23 05:37 Nucleated RBCs # 0.0 /100WBC 11/12/23 05:37 PT 14.40 SECONDS (12.1-14.9) 11/09/23 17:17 INR 1.09 (0.8-1.2) 11/09/23 17:17 APTT 55.9 SECONDS (23.9-36.7) H 11/10/23 06:44 D-Dimer 1.11 ug/mLFEU (0-0.59) H 11/10/23 00:00 Specimen Type Arterial 11/10/23 10:22 Sample Site Brachial, right 11/10/23 10:22 ABG pH 7.41 (7.35-7.45) 11/10/23 10:22 ABG pCO2 51.3 mmHg (35-45) H 11/10/23 10:22 ABG pO2 63.2 mmHg (80.0-100.0) L 11/10/23 10:22 ABG PO2/FiO2 Ratio 0 11/10/23 10:22 ABG HCO3 32.6 mmol/L (22-26) H 11/10/23 10:22 ABG O2 Saturation 93.7 11/10/23 10:22 ABG Base Excess 6.6 mmol/L (-2.0-2.0) H 11/10/23 10:22 Jey Test Pos 11/10/23 10:22 A-a O2 Gradient 12.1 mmHg (5-10) H 11/10/23 10:22 Hematocrit 40.2 % (42-52) L 11/10/23 10:22 Hgb O2 Saturation 91.6 % (95-100) L 11/10/23 10:22 Carboxyhemoglobin 2.0 %THgb (0.4-20.1) 11/10/23 10:22 Methemoglobin 0.2 % (0.4-1.5) L 11/10/23 10:22 Total Hemoglobin 13.1 g/dL (14-18) L 11/10/23 10:22 Sodium 136.0 mmol/L (131-143) 11/10/23 10:22 Potassium 4.6 mmol/L (3.5-5.0) 11/10/23 10:22 Glucose 136.0 mg/dL (70-115) H 11/10/23 10:22 Ionized Calcium 1.2 mmol/L (1.1-1.4) 11/10/23 10:22 O2 Delivery Device Bipap 11/10/23 10:22 O2 Liters/Min 2.5 % 11/09/23 19:54 FiO2 30.0 % 11/10/23 10:22 Tidal Volume 0.50 11/10/23 10:22 PEEP 8.0 cmH20 11/10/23 10:22 [employer] Analyst ID [place] 11/10/23 10:22 Sodium 143 mmol/L (136-145) 11/12/23 05:37 Potassium 4.6 mmol/L (3.5-5.1) 11/12/23 05:37 Chloride 100 mmol/L (98-107) 11/12/23 05:37 Carbon Dioxide 40 mmol/L (22-29) H 11/12/23 05:37 Anion Gap 7.6 (5-19) 11/12/23 05:37 BUN 29 mg/dL (8-23) H 11/12/23 05:37 Creatinine 0.9 mg/dL (0.7-1.2) 11/12/23 05:37 GFR Calculation Not Reportable 11/12/23 05:37 Glucose 104 mg/dL (65-115) 11/12/23 05:37 POC Glucose 123 mg/dL (70-110) H 11/12/23 06:28 Estimat Average Glucose 146 11/10/23 00:00 Hemoglobin A1c 6.7 % (4.0-6.0) H 11/10/23 00:00 Calculated Osmolality 302 mOsm/kg (285-295) H 11/12/23 05:37 Lactic Acid 0.8 mmol/L (0.5-2.2) 11/09/23 22:07 Calcium 9.3 mg/dL (8.5-10.5) 11/12/23 05:37 Phosphorus 3.8 mg/dL (2.5-4.5) 11/10/23 06:44 Magnesium 2.0 mg/dL (1.7-2.3) 11/10/23 06:44 Total Bilirubin 0.3 mg/dL (0.15-1.2) 11/09/23 17:17 AST 22 U/L (0-40) 11/09/23 17:17 ALT 11 U/L (0-41) 11/09/23 17:17 Alkaline Phosphatase 59 U/L (40-130) 11/09/23 17:17 Troponin T Baseline 164 ng/L (0-15) H* 11/09/23 17:17 Troponin T 120 Minute 153.8 ng/L (0-15) H 11/09/23 19:27 Delta Troponin T -10.2 ABS# (0-10) L 11/09/23 19:27 Troponin T Hi Sens 6Hr 142.0 ng/L (0-15) H 11/10/23 00:00 Troponin T Hi Sens 6Hr Delta -22.0 ng/L (0-12) L 11/10/23 00:00 C-Reactive Protein 7.0 mg/L (0.0-4.9) H 11/09/23 22:07 NT-Pro-B Natriuret Pep 6767 pg/mL (0-450) H 11/10/23 06:44 Total Protein 6.4 g/dL (6.6-8.7) L 11/09/23 17:17 Albumin 3.5 g/dL (3.5-5.2) 11/09/23 17:17 Globulin 2.9 g/dL (1.3-4.6) 11/09/23 17:17 Triglycerides 67 mg/dL (0-150) 11/10/23 00:00 Cholesterol 103 mg/dL (0-200) 11/10/23 00:00 LDL Cholesterol, Calc 42 mg/dL (50-129) L 11/10/23 00:00 HDL Cholesterol 48 mg/dL (60-100) L 11/10/23 00:00 LDL/HDL Ratio 0.88 RATIO (0.00-3.22) 11/10/23 00:00 Cholesterol/HDL Ratio 2.15 mg/dL (1.0-5.00) 11/10/23 00:00 Procalcitonin 0.10 ng/mL (0-0.5) 11/09/23 22:07 TSH 1.10 uIU/mL (0.27-4.20) 11/10/23 00:00 Urine Color Yellow (Yellow) 11/09/23 16:45 Urine Appearance Clear (CLEAR) 11/09/23 16:45 Urine pH 5 (5-7) 11/09/23 16:45 Ur Specific [place] 1.030 (1.005-1.030) 11/09/23 16:45 Urine Protein Trace (Negative) 11/09/23 16:45 Urine Glucose (UA) Norm (Normal) 11/09/23 16:45 Urine Ketones Negative (Negative) 11/09/23 16:45 Urine Blood Neg (Negative) 11/09/23 16:45 Urine Nitrate Negative (Negative) 11/09/23 16:45 Urine Bilirubin 1+ (Negative) H 11/09/23 16:45 Urine Urobilinogen 1 mg/dL (Negative) H 11/09/23 16:45 Ur Leukocyte Esterase Negative (Negative) 11/09/23 16:45 Urine RBC 5-10 /hpf (0-2) H 11/09/23 16:45 Urine WBC 0-4 /hpf (0-5) H 11/09/23 16:45 Ur Squamous Epith Cells 0-4 /hpf (0-5) H 11/09/23 16:45 Amorphous Sediment 2+ /hpf 11/09/23 16:45 Urine Bacteria Trace /hpf (NONE) 11/09/23 16:45 Hyaline Casts 5-10 /lpf H 11/09/23 16:45 Urine Mucus 2+ /hpf 11/09/23 16:45 Influenza Type A Ag Negative (Negative) 11/09/23 16:11 Influenza Type B Ag Negative (Negative) 11/09/23 16:11 SARS-CoV-2 Ag (Rapid) negative (Negative) 11/09/23 16:11 Vitals Last Vital Signs Temp 97.9 F 11/12/23 08:25 Pulse 93 11/12/23 08:25 Resp 18 11/12/23 08:25 BP 133/71 11/12/23 08:25 Pulse Ox 93 11/12/23 08:25 O2 Del Method Nasal Cannula 11/12/23 08:25 O2 Flow Rate 2 11/12/23 08:19 FiO2 35 11/11/23 03:43 Discharge Plan Discharge Patient Disposition: Home Condition: Stable Prescriptions: New levofloxacin 750 mg tablet 750 mg PO DAILY 7 Days Qty: 7 0RF Continued Trelegy Ellipta 100-62.5-25 mcg blister with device 1 inh inhalation DAILY Qty: 60 3RF albuterol sulfate 90 mcg/actuation HFA aerosol inhaler 2 puff inhalation Q4H PRN (Reason: Shortness Of Breath) budesonide 0.5 mg/2 mL suspension for nebulization 0.5 mg inhalation BID Qty: 120 6RF formoterol fumarate [Perforomist] 20 mcg/2 mL solution for nebulization 2 ml inhalation BID Qty: 120 6RF Yupelri 175 mcg/3 mL solution for nebulization 175 mcg inhalation DAILY Qty: 90 6RF tamsulosin [Flomax] 0.4 mg Capsule 0.4 mg PO QAM montelukast [Singulair] 10 mg Tablet 10 mg PO BEDTIME pravastatin 20 mg Tablet 20 mg PO BEDTIME Januvia 50 mg Tablet 50 mg PO QAM omeprazole 20 mg capsule,delayed release(DR/EC) 20 mg PO DAILY 28 Days 1RF hydrocodone-acetaminophen 10-325 mg tablet 1 - 2 tab PO .EVERY 4-6 HOURS PRN (Reason: Pain) aspirin [Aspir-81] 81 mg Tablet,Delayed Release (Dr/Ec) 81 mg PO QAM furosemide 40 mg tablet 40 mg PO QAM latanoprost 0.005 % drops 1 drp ophthalmic (eye) BEDTIME potassium chloride 20 mEq tablet,ER particles/crystals 20 meq PO QAM lisinopril 5 mg tablet 5 mg PO QAM levofloxacin 500 mg tablet 500 mg PO DAILY Rx Instructions: for 7 days (rx filled 11/08/23) Combivent Respimat 20-100 mcg/actuation mist 1 puff INHALATION Q6H Movantik 25 mg tablet 25 mg PO QAM Rx Instructions: BEFORE BREAKFAST ipratropium-albuterol [DuoNeb] 0.5 mg-3 mg(2.5 mg base)/3 mL Solution For Nebulization 3 ml INHALATION Q4H multivitamin [Multi-Vitamins] Tablet 1 tab PO QAM naloxone [Narcan] 0.4 mg/mL Solution 0.4 mg SUBCUT Q3M PRN (Reason: Opioid Overdose) Rx Instructions: NTExceed 10 mg total dose/episode nitroglycerin [Nitrostat] 0.4 mg Tablet, Sublingual 0.4 mg SUBLINGUAL Q5M PRN (Reason: Chest Pain) Rx Instructions: do not exceed 3 doses per episode mirtazapine 15 mg tablet 15 mg PO BEDTIME Discontinued glipizide 5 mg Tablet 5 mg PO BID dexamethasone 6 mg tablet 6 mg PO DAILY Rx Instructions: for 7 days (rx filled 11/08/23) Discharge Orders: Discharge Order (Routine); Ordered 11/12/23 Ordered By: Abel Castelan Referrals: Cornelia Ayala DO [Primary Care Provider] - 4-7 days Discharge Diet: Diabetic Patient Instructions: Opioid Safety Activity Restrictions/Additional Instructions: Please avoid smoking at any cost Used to live oxygen 14/05 Use antibiotics for 7 days And please stay consistent and compliant with your inhalers Discharge Attestations Time Spent in Discharge Care*: greater than 30 min Quality Metrics Clinical Quality Measures [ No reported AMI, CVA or VTE this stay] Coding Level of Care Code Acute Code for Chg Fwd Diagnoses Hypertension I10 CHF (congestive heart failure) I50.9 Diastolic CHF, acute I50.31 NSTEMI (non-ST elevated myocardial infarction) I21.4 Diabetes E11.9 Acute encephalopathy G93.40 COPD (chronic obstructive pulmonary disease) J44.1 COPD type: COPD with acute exacerbation Acute hypoxic on chronic hypercapnic respiratory failure J96.01; J96.12 Acute hypercapnic respiratory failure J96.02 Non-compliant behavior R46.89
[2023-11-12 11:49] LABS: Glucose Point of Care 116 mg/dL (70-110)
--- NOTE | 2023-11-12 13:23 | PC.NURSE ---
Discharge Note Patient discharged to home via private vehicle accompanied by son. Educated about the dangers of living alone and fall risk as well as smoking with oxygen. Patient stated, he will live at home until he breaks a hip and he will smoke until he dies Discharge instructions reviewed with patient and/or customer service representative. Mobile pharmacy medications and/or prescriptions provided. Belongings/home medications returned.
== END 2023-11-12 13:23 | disposition home or self-care (01) | DRG 280 ==
LOC: ER 21:42 → ICU 21:50 → MEDSURG 11-11 12:44
PROVIDERS: Admitting Provider Family Medicine; Emergency Provider Internal Medicine; PCP Family Medicine; Visit Provider Internal Medicine
DX: I21.4 Non-ST elevation (NSTEMI) myocardial infarction (principal); I50.31 Acute diastolic (congestive) heart failure; J96.22 Acute and chronic respiratory failure with hypercapnia; J96.21 Acute and chronic respiratory failure with hypoxia; N17.9 Acute kidney failure, unspecified; G93.40 Encephalopathy, unspecified; J44.1 Chronic obstructive pulmonary disease with (acute) exacerbation; I11.0 Hypertensive heart disease with heart failure; F17.210 Nicotine dependence, cigarettes, uncomplicated; Z99.81 Dependence on supplemental oxygen; Z66 Do not resuscitate; Z91.199 Patient's noncompliance with other medical treatment and regimen due to unspecified reason; E11.9 Type 2 diabetes mellitus without complications; Z79.4 Long term (current) use of insulin
CPT/HCPCS: 36415; 36416; 36600; 51702; 70450; 71045; 71250; 80048; 80051; 80053; 80061; 81001; 82330; 82803; 82805; 82962; 83036; 83605; 83735; 83880; 84100; 84145; 84443; 84484; 85025; 85378; 85610; 85730; 86140; 87040; 87426; 87804; 93005; 93306; 93970; 94640; 94660; 94664; 96372; 96374; 96376; 97116; 97161; 99291; C9113; J0696; J1644; J1650; J1815; J1940; J2920; J2930; J3490; J7626

== ENCOUNTER 2023-12-10 10:48 | Emergency (ER) | payer MEDICARE, SELFPAY ==
[2023-12-10 10:50] VITALS: BP 92/53; PULSE 96; TEMP 37.1; O2SAT 95; BMI 30.4
--- NOTE | 2023-12-10 11:00 | W.ED.SOB ---
HPI - SOB/Dyspnea General: Chief Complaint: Shortness of Breath/Dyspnea Stated Complaint: sob Time Seen by Provider: 12/10/23 11:00 History of Present Illness: HPI Narrative: 78-year-old male presents to the emergency department via EMS personnel secondary to having shortness of breath. Patient has a history of COPD and continues to smoke tobacco products daily. He states he does have home oxygen and uses it at 3 L consistently but this morning he woke up at 2 AM feeling more short of breath and had to increase his supplemental oxygen to 4 L. He states he was recently told that he had a heart attack approximately 1 week ago and states he is continuing to feel short of breath. He denies nausea vomiting fevers chills night sweats. He denies chest pain at present. Review of Systems General: Reports: 10 or more systems reviewed and unremarkable except in HPI and below Resp: Reports: dyspnea, non-productive cough and wheezing [facility] ED PFSH: Medical History (Updated 12/10/23 @ 11:35 by Oneal Horner MD) Non-compliant behavior Acute encephalopathy Diastolic CHF, acute NSTEMI (non-ST elevated myocardial infarction) Acute hypoxic on chronic hypercapnic respiratory failure Acute renal failure (ARF) CHF (congestive heart failure) Acute hypercapnic respiratory failure Smoker Hypertension COPD (chronic obstructive pulmonary disease) Diabetes Surgical History History of cholecystectomy History of carpal tunnel surgery of right wrist H/O hemorrhoidectomy H/O hernia repair Hx of tonsillectomy History of testicular surgery Social History Smoking and tobacco/nicotine status: current every day tobacco/nicotine user cigarettes Packs smoked per day: 1 Years cigarettes smoked: 66 [ Other cigarette details: Started in 1956] Quit status (tobacco/nicotine): considering quitting Second hand smoke exposure: Yes Alcohol intake: never Substance/Drug Use: never Lives independently: Yes Household members: none Marital status: / service: No Current occupational status: retired Pets and animals: No Do you think of yourself as: Straight/Heterosexual Current gender identity: Male Physical Exam Const: COMMON NORMALS: patient oriented x3 GENERAL APPEARANCE: cooperative and frail appearing HENMT: COMMON NORMALS: normocephalic, atraumatic, hearing grossly normal bilaterally, Normal external nose present and moist oral mucous membranes HEAD & SCALP: normocephalic and atraumatic NOSE: Normal external nose present Eye: COMMON NORMALS: Equal, round and reactive pupils present and EOMs intact bilaterally PUPIL: Yes Equal, round and reactive pupils present Neck/C-Spine: COMMON NORMALS: full ROM and supple Chest: COMMONS NORMALS: normal inspection of the chest and normal palpation of entire chest wall Resp: EFFORT & INSPECTION: Yes tachypneic, Yes respiratory distress, Yes labored and Yes audible wheezes AUSCULTATION: wheezes Cardio: COMMON NORMALS: regular rate, regular rhythm, S1 normal heart sound present, S2 normal heart sound present, No murmurs present (Cardio) and Peripheral pulses 2+ throughout RATE: regular rate RHYTHM: regular rhythm HEART SOUNDS: S1 normal heart sound present and S2 normal heart sound present PERIPHERAL PULSES: Peripheral pulses 2+ throughout GI: COMMON NORMALS: Normal to inspection, nondistended, normoactive bowel sounds present Extremity: COMMON NORMALS: normal to inspection, full ROM and capillary refill normal Neuro: COMMON NORMALS: patient oriented x3, moves all extremities and no sensory deficits noted Psych: COMMON NORMALS: Normal thought process present APPEARANCE: Yes disheveled THOUGHT PROCESS: Normal thought process present Skin: COMMON NORMALS: no rashes or lesions noted GENERAL SKIN EXAM: no rashes or lesions noted Course Reevaluation(s): Reevaluation #1: Patient states he feels like he is breathing much better. Oxygen saturation has ranged from 92 to 95% on 3 L nasal cannula which she is his home oxygen level. I will discharge the patient home with follow-up with his primary and pulmonology physician I will discharge him home with antibiotics and corticosteroids. Time: 12:37 Vital Signs: Vital signs: Vital Signs Temperature 98.7 F 12/10/23 10:50 Pulse Rate 99 12/10/23 13:00 Respiratory Rate 18 12/10/23 11:36 Blood Pressure 126/65 12/10/23 13:00 Pulse Oximetry 96 12/10/23 13:00 Oxygen Delivery Me thod Nasal Cannula 12/10/23 13:00 Oxygen Flow Rate 4 12/10/23 11:36 MDM - SOB/Dyspnea Medical Decision Making Physical exam completed and documented, patient has been provided corticosteroids, and DuoNeb breathing treatment in the ambulance. I will obtain a CBC, CMP, and given his recent cardiac events I will obtain twelve-lead EKG and serial cardiac enzymes to evaluate for congestive heart failure versus COPD exacerbation. I will provide him an hour-long breathing treatment and attempt to open his airways. Medical Records I reviewed the patient's medical records. Lab Data I reviewed the patient's lab results. 12/10/23 11:16 12/10/23 11:16 Labs/Radiology: Radiology Impressions Chest X-Ray 12/10/23 11:01 IMPRESSION: No acute pathology. Pulmonary emphysema with bibasilar scar versus atelectasis. Laboratory Results WBC 6.85 10^3/uL (3.29-11.43) 12/10/23 11:16 RBC 5.04 10^6/uL (3.85-5.65) 12/10/23 11:16 Hgb 13.70 g/dL (11.27-16.99) 12/10/23 11:16 Hct 44.9 % (37-53) 12/10/23 11:16 MCV 89.1 fl (82-101) 12/10/23 11:16 MCH 27.2 pg (27-33) 12/10/23 11:16 MCHC 30.5 g/dL (30-55) 12/10/23 11:16 RDW 15.1 % (12.1-15.1) 12/10/23 11:16 Plt Count 196 10^3/cmm (157-399) 12/10/23 11:16 MPV 10.3 fL (7.4-10.4) 12/10/23 11:16 Neut % (Auto) 65.3 % 12/10/23 11:16 Lymph % (Auto) 18.7 % 12/10/23 11:16 [place] % (Auto) 10.2 % 12/10/23 11:16 Eos % (Auto) 5.1 % 12/10/23 11:16 Baso % (Auto) 0.4 % 12/10/23 11:16 Neut # (Auto) 4.47 10^3/uL (1.8-7.7) 12/10/23 11:16 Lymph # (Auto) 1.3 10^3/uL (0.8-4.8) 12/10/23 11:16 [place] # (Auto) 0.7 10^3/uL (0.2-0.9) 12/10/23 11:16 Eos # (Auto) 0.4 10^3/uL (0.0-0.8) 12/10/23 11:16 Baso # (Auto) 0.0 10^3/uL (0.0-0.1) 12/10/23 11:16 Nucleated RBC % (auto) 0 % 12/10/23 11:16 Nucleated RBCs # 0.0 /100WBC 12/10/23 11:16 PT 13.70 SECONDS (12.1-14.9) 12/10/23 11:16 INR 1.02 (0.8-1.2) 12/10/23 11:16 Specimen Type Arterial 12/10/23 11:46 Sample Site Radial, left 12/10/23 11:46 ABG pH 7.36 (7.35-7.45) 12/10/23 11:46 ABG pCO2 68.7 mmHg (35-45) H* 12/10/23 11:46 ABG pO2 129.0 mmHg (80.0-100.0) H 12/10/23 11:46 ABG HCO3 38.5 mmol/L (22-26) H 12/10/23 11:46 ABG O2 Saturation 99.1 12/10/23 11:46 ABG Base Excess 10.0 mmol/L (-2.0-2.0) H 12/10/23 11:46 Jey Test Pos 12/10/23 11:46 A-a O2 Gradient Not Reportable 12/10/23 11:46 Hematocrit 42.7 % (42-52) 12/10/23 11:46 Hgb O2 Saturation 96.2 % (95-100) 12/10/23 11:46 Carboxyhemoglobin 2.4 %THgb (0.4-20.1) 12/10/23 11:46 Methemoglobin 0.5 % (0.4-1.5) 12/10/23 11:46 Total Hemoglobin 13.9 g/dL (14-18) L 12/10/23 11:46 Sodium 135.0 mmol/L (131-143) 12/10/23 11:46 Potassium 4.0 mmol/L (3.5-5.0) 12/10/23 11:46 Glucose 234.0 mg/dL (70-115) H 12/10/23 11:46 Ionized Calcium 1.3 mmol/L (1.1-1.4) 12/10/23 11:46 O2 Delivery Device Cont neb 12/10/23 11:46 O2 Liters/Min 7.0 % 12/10/23 11:46 Slab Miller Operator ID Cak 12/10/23 11:46 Sodium 137 mmol/L (136-145) 12/10/23 11:16 Potassium 4.4 mmol/L (3.5-5.1) 12/10/23 11:16 Chloride 93 mmol/L (98-107) L 12/10/23 11:16 Carbon Dioxide 36 mmol/L (22-29) H 12/10/23 11:16 Anion Gap 12.4 (5-19) 12/10/23 11:16 BUN 9 mg/dL (8-23) 12/10/23 11:16 Creatinine 0.7 mg/dL (0.7-1.2) 12/10/23 11:16 GFR Calculation Not Reportable 12/10/23 11:16 Glucose 223 mg/dL (65-115) H 12/10/23 11:16 Calculated Osmolality 290 mOsm/kg (285-295) 12/10/23 11:16 Calcium 8.8 mg/dL (8.5-10.5) 12/10/23 11:16 Total Bilirubin 0.5 mg/dL (0.15-1.2) 12/10/23 11:16 AST 11 U/L (0-40) 12/10/23 11:16 ALT < 5 U/L (0-41) 12/10/23 11:16 Alkaline Phosphatase 71 U/L (40-130) 12/10/23 11:16 Troponin T Baseline 32 ng/L (0-15) H 12/10/23 11:16 NT-Pro-B Natriuret Pep 374 pg/mL (0-450) 12/10/23 11:16 Total Protein 5.9 g/dL (6.6-8.7) L 12/10/23 11:16 Albumin 3.7 g/dL (3.5-5.2) 12/10/23 11:16 Globulin 2.2 g/dL (1.3-4.6) 12/10/23 11:16 All radiology interpretation(s) finalized by discharge EKG Data EKG 1: Interpretation: Twelve-lead EKG obtained at 1059 reviewed at 11:00 demonstrates sinus rhythm ventricular rate 95 bpm, [place] interval 161 QRS duration 95 QT 310 QTc [address] elevation or depression at present time demonstrate acute ischemia or infarction. Discharge Plan Discharge Patient Disposition: Home Clinical Impression: Acute exacerbation of chronic obstructive pulmonary disease Condition: Stable Prescriptions: New prednisone 20 mg tablet 60 mg PO DAILY 5 Days Qty: 15 0RF Zithromax Z-Harrison 250 mg tablet See Rx Instructions PO .COMPLEX Qty: 6 0RF Rx Instructions: For 250 mg dose pack: take 500 mg today (day 1), then 250 mg for 4 days (days 2-5) No Action albuterol sulfate 90 mcg/actuation HFA aerosol inhaler 2 puff inhalation Q4H PRN (Reason: Shortness Of Breath) Yupelri 175 mcg/3 mL solution for nebulization 175 mcg inhalation DAILY Qty: 90 6RF tamsulosin [Flomax] 0.4 mg Capsule 0.4 mg PO QAM pravastatin 20 mg Tablet 20 mg PO BEDTIME Januvia 50 mg Tablet 50 mg PO QAM omeprazole 20 mg capsule,delayed release(DR/EC) 20 mg PO DAILY 28 Days 1RF hydrocodone-acetaminophen 10-325 mg tablet 1 - 2 tab PO .EVERY 4-6 HOURS PRN (Reason: Pain) aspirin 81 mg Tablet,Delayed Release (Dr/Ec) 81 mg PO QAM furosemide 40 mg tablet 40 mg PO QAM latanoprost 0.005 % drops 1 drp ophthalmic (eye) BEDTIME potassium chloride 20 mEq tablet,ER particles/crystals 20 meq PO QAM lisinopril 5 mg tablet 5 mg PO QAM Combivent Respimat 20-100 mcg/actuation mist 1 puff INHALATION Q6H Movantik 25 mg tablet 25 mg PO QAM Rx Instructions: BEFORE BREAKFAST naloxone 0.4 mg/mL Solution 0.4 mg SUBCUT Q3M PRN (Reason: Opioid Overdose) Rx Instructions: NTExceed 10 mg total dose/episode nitroglycerin [Nitrostat] 0.4 mg Tablet, Sublingual 0.4 mg SUBLINGUAL Q5M PRN (Reason: Chest Pain) Rx Instructions: do not exceed 3 doses per episode mirtazapine 15 mg tablet 15 mg PO BEDTIME Discharge Orders: Discharge ED (Routine); Ordered 12/10/23 Ordered By: Oneal Horner Referrals: Cornelia Ayala DO [Primary Care Provider] - Discharge Diet: Usual diet Discharge Activity: Resume usual activity Patient Instructions: Opioid Safety, Pain Management Activity Restrictions/Additional Instructions: Activity Restrictions/Additional Instructions: Thank you for choosing [facility] for your healthcare needs today. Please realize that you were seen in the Emergency Department and that we are providing you with an emergency medical screening exam and this may not be a complete and all inclusive of all the testing and or medical work-up that you may need to determine your ailment or severity of your illness. It is very important that you follow-up as instructed with your Primary care provider or Specialist for additional evaluation and to discuss your medical treatment plan. You may return to the Emergency Department should you have concerns or if your condition changes or worsens in any way. Coding Level of Care Code ED Automotive Tire Worker for Jf Reagan
--- NOTE | 2023-12-10 11:01 | ECG_ITS ---
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 Measurements Intervals [place] Rate: 95 P: 71 MT: 161 QRS: 67 QRSD: 95 T: 61 QT: 310 QTc: 391 Interpretive Statements SINUS RHYTHM POSSIBLE LEFT ATRIAL ENLARGEMENT [-0.1mV P-WAVE IN V1/V2] Compared to ECG 11/09/2023 21:03:55 No significant changes Electronically Signed On 12-10-2023 12:47:43 DYNAMITE CARTRIDGE CRIMPER by Carlitos Carter M.D. [id number]
--- NOTE | 2023-12-10 11:01 | XRR_ITS ---
PROCEDURE INFORMATION: Exam: XR Chest Exam date and time: 12/10/2023 11:04 AM Age: 78 years old Clinical indication: Dyspnea TECHNIQUE: Imaging protocol: Radiologic exam of the chest. Views: 1 view. COMPARISON: CT chest con [id number] 11/09/2023 11:02 PM FINDINGS: Lungs: Mild basilar scar versus atelectasis. Pulmonary emphysema is present. No focal or acute pulmonary pathology. Pleural spaces: No pleural effusion. Heart/Mediastinum: Cardiomediastinal contours within normal limits. Bones/joints: No significant pathology. XR/XR chest 1V portable [id number] IMPRESSION: No acute pathology. Pulmonary emphysema with bibasilar scar versus atelectasis.
[2023-12-10 11:23] LABS: Basophils % 0.4 %; Eosinophils # 0.4 10^3/uL (0.0-0.8); Eosinophils % 5.1 %; Hematocrit 44.9 % (37-53); Lymphocytes # 1.3 10^3/uL (0.8-4.8); Lymphocytes % 18.7 %; Mean Corpuscular HGB Conc 30.5 g/dL (30-55); Mean Corpuscular Hemoglobin 27.2 pg (27-33); Mean Corpuscular Volume 89.1 fl (82-101); Mean Platelet Volume 10.3 fL (7.4-10.4); Monocytes # 0.7 10^3/uL (0.2-0.9); Monocytes % 10.2 %; Neutrophils # 4.47 10^3/uL (1.8-7.7); Neutrophils % 65.3 %; Nucleated Red Blood Cells % 0 %; Platelet Count 196 10^3/cmm (157-399); Red Blood Count 5.04 10^6/uL (3.85-5.65); Red Cell Distribution Width 15.1 % (12.1-15.1); White Blood Count 6.85 10^3/uL (3.29-11.43)
[2023-12-10 11:34] LABS: INR 1.02 (0.8-1.2)
[2023-12-10 11:36] VITALS: PULSE 96; RESP 18; O2SAT 94
[2023-12-10] MEDS: ipratropium-albuterol 3 mL Neb 9 ML INHALATION (11:40)
[2023-12-10 11:41] LABS: Troponin(5th) Baseline 32 ng/L (0-15)
[2023-12-10 11:58] LABS: ABG PH Result 7.36 (7.35-7.45); Arterial Blood Gas Hematocrit 42.7 % (42-52); Blood Gas Allen Test Pos; Blood Gas Operator Identificat CAK; Blood Gas Sample Site Radial, left; Blood Gas Sample Type Arterial; Carboxyhemoglobin 2.4 %THgb (0.4-20.1); HCO3 ABG 38.5 mmol/L (22-26); HGB O2 Sat 96.2 % (95-100); Ionized Calcium Level - ABG 1.3 mmol/L (1.1-1.4); Methemoglobin 0.5 % (0.4-1.5); Oxygen Saturation ABG 99.1; Total Hemoglobin 13.9 g/dL (14-18)
[2023-12-10 11:59] LABS: Oxygen Device CONT NEB
[2023-12-10 12:01] LABS: ABG PCO2 68.7 mmHg (35-45)
[2023-12-10 12:02] VITALS: BP 138/65; PULSE 87; O2SAT 97
[2023-12-10 12:04] LABS: Alanine Aminotransferase < 5 U/L (0-41); Albumin Level 3.7 g/dL (3.5-5.2); Alkaline Phosphatase 71 U/L (40-130); Anion Gap 12.4 (5-19); Aspartate Amino Transferase 11 U/L (0-40); Blood Urea Nitrogen 9 mg/dL (8-23); Calcium 8.8 mg/dL (8.5-10.5); Carbon Dioxide 36 mmol/L (22-29); Chloride 93 mmol/L (98-107); Creatinine Clr Calc Pharmacy 89.9771; Globulin 2.2 g/dL (1.3-4.6); Glucose 223 mg/dL (65-115); NT Pro B Type Natriuretic Pept 374 pg/mL (0-450); Osmolality Calculated 290 mOsm/kg (285-295); Potassium 4.4 mmol/L (3.5-5.1); Sodium 137 mmol/L (136-145); Total Bilirubin 0.5 mg/dL (0.15-1.2); Total Protein 5.9 g/dL (6.6-8.7)
[2023-12-10 12:07] VITALS: PULSE 91
[2023-12-10 12:30] VITALS: BP 104/58; PULSE 98; O2SAT 94
--- NOTE | 2023-12-10 12:45 | PC.PHAR ---
PT STATES SEVERAL INHALERS AND MEDS FOR NEBULIZING MACHING ARE NO LONGER COVERED ON HIS INSURANCE AND HE CAN'T AFFORD THEM. 12/10/23
[2023-12-10 13:00] VITALS: BP 126/65; PULSE 99; O2SAT 96
== END 2023-12-10 13:17 | disposition home or self-care (01) ==
PROVIDERS: Emergency Provider Internal Medicine; PCP Family Medicine
DX: J44.1 Chronic obstructive pulmonary disease with (acute) exacerbation (principal); Z79.82 Long term (current) use of aspirin; F17.210 Nicotine dependence, cigarettes, uncomplicated; I11.0 Hypertensive heart disease with heart failure; I50.30 Unspecified diastolic (congestive) heart failure; I25.2 Old myocardial infarction; E11.9 Type 2 diabetes mellitus without complications
CPT/HCPCS: 36415; 36600; 71045; 80051; 80053; 82330; 82805; 83880; 84484; 85025; 85610; 93005; 94640; 99285

== ENCOUNTER 2023-12-26 10:15 | Emergency (ER) | payer MEDICARE, SELFPAY ==
[2023-12-26 10:23] VITALS: BP 106/66; PULSE 89; RESP 18; TEMP 36.7; O2SAT 93
--- NOTE | 2023-12-26 10:23 | ECG_ITS ---
[facility] Test Date: 2023-12-26 Pat Name: Jeremías Edouard Department: Room: Gender: Male Yarder: : 1945 Requested By: Myesha Fields Order Number: [id number] Tracy MD: Cecil Lu M.D. Measurements Intervals [place] Rate: 92 P: 70 [place]: 152 QRS: 45 QRSD: 94 T: 56 QT: 322 QTc: 399 Interpretive Statements SINUS RHYTHM Compared to ECG 12/10/2023 10:59:46 No significant changes Electronically Signed On 12-26-2023 10:57:45 OIL WELL DRILLING MANAGER by Cecil Lu M.D. [email or web address] rush healthNurotron Biotechnologyohiohealth marion [email or web address].[email or web address]/store/[id number] f
--- NOTE | 2023-12-26 10:29 | XR_ITS ---
WS: [id number] Portable AP upright chest, 12/26/2023 Clinical Data: sob Comparison: Portable chest, 12/10/2023 Findings: No nodules, masses or effusions are seen. There are minimal opacities over the surface of b oth diaphragms which could represent pneumonia and/or atelectasis. The diaphragms are flattened. The heart is normal. The pulmonary vascularity is not increased. No pneumonia or pneumothorax is seen. Th e aortic arch shows mild tortuosity. There is a dextroscoliosis of the thoracic spine. There is a mon itor lead overlying the right chest. Impression: 1. Minimal opacities over surface of both diaphragms. 2. Atherosclerosis. 3. Hyperinflation
--- NOTE | 2023-12-26 10:33 | ED_ITS ---
HPI - Chest Pain 2 General: Chief Complaint: Chest Pain Stated Complaint: Chest pain, COPD Time Seen by Provider: 12/26/23 10:17 Source: patient and EMS Mode of arrival: EMS Limitations: no limitations History of Present Illness: 78-year-old male who has a history of [place] PD is on 2 L oxygen chronically states that since last night has been having a sharp pain in his chest along with some increasing shortness of breath. Patient did receive Solu-Medrol breathing treatment route states he is feeling improved he is 94% here on his home oxygen he states his pain is roughly a 1 out of 10 he denies any vomiting or diarrhea denies any fever. Associated symptoms: Reports dyspnea; Deny abdominal pain, fever(s), nausea or vomiting Review of Systems 2 Const: Denies: fever(s), chills, body aches or change in appetite ENMT: Denies: throat pain or dental pain Card: Reports: chest pain Resp: Reports: dyspnea GI: Denies: abdominal pain, nausea, vomiting or diarrhea Musc: Denies: neck pain or back pain Skin/Breast: Denies: rash Neuro: Denies: headache(s) PFSH ED 2 PFSH: Medical History (Updated 12/26/23 @ 13:10 by Myesha Fields MD) Non-compliant behavior Acute encephalopathy Diastolic CHF, acute NSTEMI (non-ST elevated myocardial infarction) Acute hypoxic on chronic hypercapnic respiratory failure Acute renal failure (ARF) CHF (congestive heart failure) Acute hypercapnic respiratory failure Smoker Hypertension COPD (chronic obstructive pulmonary disease) Diabetes Surgical History History of cholecystectomy History of carpal tunnel surgery of right wrist H/O hemorrhoidectomy H/O hernia repair Hx of tonsillectomy History of testicular surgery Social History Smoking and tobacco/nicotine status: current every day tobacco/nicotine user cigarettes Packs smoked per day: 1 Years cigarettes smoked: 66 [ Other cigarette details: Started in 6] Quit status (tobacco/nicotine): considering quitting Second hand smoke exposure: Yes Alcohol intake: never Substance/Drug Use: never Lives independently: Yes Household members: none Marital status: / service: No Current occupational status: retired Pets and animals: No Do you think of yourself as: Straight/Heterosexual Current gender identity: Male Physical Exam 2 Const: COMMON NORMALS: patient oriented x3 HENMT: COMMON NORMALS: normocephalic and atraumatic HEAD & SCALP: n ormocephalic and atraumatic Neck/C-Spine: COMMON NORMALS: full ROM and supple Chest: COMMONS NORMALS: normal inspection of the chest and normal palpation of entire chest wall Resp: COMMON NORMALS: normal respiratory effort, No retractions, No use of accessory muscles and clear to auscultation bilaterally AUSCULTATION: clear to auscultation bilaterally Cardio: COMMON NORMALS: regular rate, regular rhythm and No murmurs present (Cardio) RATE: regular rate RHYTHM: regular rhythm GI: COMMON NORMALS: Normal to inspection, nondistended, normoactive bowel sounds present, Soft to palpation, non-tender and no masses PALPATION: Yes Soft to palpation Extremity: COMMON NORMALS: normal to inspection and full ROM Neuro: COMMON NORMALS: patient oriented x3, moves all extremities and no focal motor deficits Psych: COMMON NORMALS: mental status grossly normal, Normal thought process present and cooperative THOUGHT PROCESS: Normal thought process present Skin: COMMON NORMALS: no rashes or lesions noted and no wounds GENERAL SKIN EXAM: no rashes or lesions noted Course 2 Vital Signs: Vital signs: Vital Signs Temperature 98.1 F 12/26/23 10:23 Pulse Rate 86 12/26/23 13:00 Respiratory Rate 20 H 12/26/23 10:51 Blood Pressure 118/72 12/26/23 13:00 Pulse Oximetry 94 12/26/23 13:00 Oxygen Delivery Me thod Room Air 12/26/23 13:00 Oxygen Flow Rate 2 12/26/23 10:51 MDM - Chest Pain Medical Decision Making Patient presents here with chest pain also has some dyspnea likely from COPD he has been at stable here his oxygen has been in the 90s on his 2 L he has been in no distress troponins are negative he is stable for discharge he had no increased cough or fever no signs of pneumonia we will place him on 5 days of steroids he is follow-up his PCP and return if worsening. Medical Records I reviewed the patient's medical records. Lab Data I reviewed the patient's lab results. 12/26/23 10:30 12/26/23 10:30 Laboratory Results WBC 10.77 10^3/uL (3.29-11.43) 12/26/23 10:30 RBC 5.28 10^6/uL (3.85-5.65) 12/26/23 10:30 Hgb 14.50 g/dL (11.27-16.99) 12/26/23 10:30 Hct 45.2 % (37-53) 12/26/23 10:30 MCV 85.6 fl (82-101) 12/26/23 10:30 MCH 27.5 pg (27-33) 12/26/23 10:30 MCHC 32.1 g/dL (30-55) 12/26/23 10:30 RDW 16.8 % (12.1-15.1) H 12/26/23 10:30 Plt Count 240 10^3/cmm (157-399) 12/26/23 10:30 MPV 10.2 fL (7.4-10.4) 12/26/23 10:30 Neut % (Auto) 74.9 % 12/26/23 10:30 Lymph % (Auto) 12.3 % 12/26/23 10:30 [place] % (Auto) 9.0 % 12/26/23 10:30 Eos % (Auto) 3.1 % 12/26/23 10:30 Baso % (Auto) 0.3 % 12/26/23 10:30 Neut # (Auto) 8.08 10^3/uL (1.8-7.7) H 12/26/23 10:30 Lymph # (Auto) 1.3 10^3/uL (0.8-4.8) 12/26/23 10:30 [place] # (Auto) 1.0 10^3/uL (0.2-0.9) H 12/26/23 10:30 Eos # (Auto) 0.3 10^3/uL (0.0-0.8) 12/26/23 10:30 Baso # (Auto) 0.0 10^3/uL (0.0-0.1) 12/26/23 10:30 Nucleated RBC % (auto) 0 % 12/26/23 10:30 Nucleated RBCs # 0.0 /100WBC 12/26/23 10:30 Sodium 135 mmol/L (136-145) L 12/26/23 10:30 Potassium 4.6 mmol/L (3.5-5.1) 12/26/23 10:30 Chloride 97 mmol/L (98-107) L 12/26/23 10:30 Carbon Dioxide 29 mmol/L (22-29) 12/26/23 10:30 Anion Gap 13.6 (5-19) 12/26/23 10:30 BUN 9 mg/dL (8-23) 12/26/23 10:30 Creatinine 0.7 mg/dL (0.7-1.2) 12/26/23 10:30 GFR Calculation Not Reportable 12/26/23 10:30 Glucose 159 mg/dL (65-115) H 12/26/23 10:30 Calculated Osmolality 282 mOsm/kg (285-295) L 12/26/23 10:30 Calcium 9.1 mg/dL (8.5-10.5) 12/26/23 10:30 Total Bilirubin 0.8 mg/dL (0.15-1.2) 12/26/23 10:30 AST 13 U/L (0-40) 12/26/23 10:30 ALT 9 U/L (0-41) 12/26/23 10:30 Alkaline Phosphatase 70 U/L (40-130) 12/26/23 10:30 Troponin T Baseline 30 ng/L (0-15) H 12/26/23 10:30 Troponin T 120 Minute 26.41 ng/L (0-15) H 12/26/23 11:18 Delta Troponin T -3.59 ABS# (0-10) L 12/26/23 11:18 NT-Pro-B Natriuret Pep 115 pg/mL (0-450) 12/26/23 10:30 Total Protein 6.3 g/dL (6.6-8.7) L 12/26/23 10:30 Albumin 3.9 g/dL (3.5-5.2) 12/26/23 10:30 Globulin 2.4 g/dL (1.3-4.6) 12/26/23 10:30 All radiology interpretation(s) finalized by discharge EKG Data EKG 1: I personally reviewed and interpreted this EKG as follows: EKG interpretation date: 03/06/24 EKG interpretation time: 10:23 Interpretation: nsr hr [address] or t wave abnormalities qrs 94 qtc 371 Discharge Plan Discharge Patient Disposition: Home Clinical Impression: Chest pain, COPD (chronic obstructive pulmonary disease) Condition: Stable Prescriptions: New prednisone 50 mg tablet 50 mg PO DAILY Qty: 5 0RF No Action albuterol sulfate 90 mcg/actuation HFA aerosol inhaler 2 puff inhalation Q4H PRN (Reason: Shortness Of Breath) Yupelri 175 mcg/3 mL solution for nebulization 175 mcg inhalation DAILY Qty: 90 6RF tamsulosin [Flomax] 0.4 mg Capsule 0.4 mg PO QAM pravastatin 20 mg Tablet 20 mg PO BEDTIME Januvia 50 mg Tablet 50 mg PO QAM omeprazole 20 mg capsule,delayed release(DR/EC) 20 mg PO DAILY 28 Days 1RF hydrocodone-acetaminophen 10-325 mg tablet 1 - 2 tab PO .EVERY 4-6 HOURS PRN (Reason: Pain) aspirin 81 mg Tablet,Delayed Release (Dr/Ec) 81 mg PO QAM furosemide 40 mg tablet 40 mg PO QAM latanoprost 0.005 % drops 1 drp ophthalmic (eye) BEDTIME potassium chloride 20 mEq tablet,ER particles/crystals 20 meq PO QAM lisinopril 5 mg tablet 5 mg PO QAM Combivent Respimat 20-100 mcg/actuation mist 1 puff INHALATION Q6H Movantik 25 mg tablet 25 mg PO QAM Rx Instructions: BEFORE BREAKFAST naloxone 0.4 mg/mL Solution 0.4 mg SUBCUT Q3M PRN (Reason: Opioid Overdose) Rx Instructions: NTExceed 10 mg total dose/episode nitroglycerin [Nitrostat] 0.4 mg Tablet, Sublingual 0.4 mg SUBLINGUAL Q5M PRN (Reason: Chest Pain) Rx Instructions: do not exceed 3 doses per episode ipratropium-albuterol 0.5 mg-3 mg(2.5 mg base)/3 mL solution for nebulization 3 ml INHALATION Q4H PRN (Reason: Shortness Of Breath) hydroxyzine HCl 50 mg tablet 50 mg PO DAILY PRN (Reason: Insomnia) Trelegy Ellipta 100-62.5-25 mcg blister with device 1 inh INHALATION DAILY mirtazapine 15 mg tablet 15 mg PO BEDTIME Discharge Orders: Discharge ED (Routine); Ordered 12/26/23 Ordered By: Myesha Fields Referrals: Cornelia Ayala DO [Primary Care Provider] - Discharge Diet: Advance as tolerated Discharge Activity: Resume usual activity Patient Instructions: Chest Pain (ED) Coding Level of Care Code ED Barrel Cutter for Jf Reagan
[2023-12-26 10:37] LABS: Basophils % 0.3 %; Eosinophils # 0.3 10^3/uL (0.0-0.8); Eosinophils % 3.1 %; Hematocrit 45.2 % (37-53); Lymphocytes # 1.3 10^3/uL (0.8-4.8); Lymphocytes % 12.3 %; Mean Corpuscular HGB Conc 32.1 g/dL (30-55); Mean Corpuscular Hemoglobin 27.5 pg (27-33); Mean Corpuscular Volume 85.6 fl (82-101); Mean Platelet Volume 10.2 fL (7.4-10.4); Neutrophils # 8.08 10^3/uL (1.8-7.7); Neutrophils % 74.9 %; Nucleated Red Blood Cells % 0 %; Platelet Count 240 10^3/cmm (157-399); Red Blood Count 5.28 10^6/uL (3.85-5.65); Red Cell Distribution Width 16.8 % (12.1-15.1); White Blood Count 10.77 10^3/uL (3.29-11.43)
[2023-12-26] MEDS: ketorolac 30 mg/mL INJ 10 MG IVP (10:48)
[2023-12-26] MEDS: albuterol 2.5 mg/3 mL Neb INHALATION (10:48)
[2023-12-26 10:51] VITALS: PULSE 84; RESP 20; O2SAT 95
[2023-12-26 11:02] LABS: Troponin(5th) Baseline 30 ng/L (0-15)
[2023-12-26 11:04] LABS: Alanine Aminotransferase 9 U/L (0-41); Albumin Level 3.9 g/dL (3.5-5.2); Alkaline Phosphatase 70 U/L (40-130); Aspartate Amino Transferase 13 U/L (0-40); Blood Urea Nitrogen 9 mg/dL (8-23); Calcium 9.1 mg/dL (8.5-10.5); Carbon Dioxide 29 mmol/L (22-29); Chloride 97 mmol/L (98-107); Creatinine Clr Calc Pharmacy 89.9771; Globulin 2.4 g/dL (1.3-4.6); Glucose 159 mg/dL (65-115); NT Pro B Type Natriuretic Pept 115 pg/mL (0-450); Osmolality Calculated 282 mOsm/kg (285-295); Sodium 135 mmol/L (136-145); Total Bilirubin 0.8 mg/dL (0.15-1.2); Total Protein 6.3 g/dL (6.6-8.7)
[2023-12-26 11:06] LABS: Anion Gap 13.6 (5-19); Potassium 4.6 mmol/L (3.5-5.1)
[2023-12-26 11:35] VITALS: BP 115/58; PULSE 89; O2SAT 94
--- NOTE | 2023-12-26 12:29 | ECG_ITS ---
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 Measurements Intervals [place] Rate: 85 P: 64 [place]: 172 QRS: 69 QRSD: 98 T: 65 QT: 328 QTc: 392 Interpretive Statements SINUS RHYTHM Compared to ECG 12/26/2023 10:23:49 No significant changes Electronically Signed On 12-26-2023 14:33:29 PALLIATIVE SENIOR NP by Cecil Lu M.D. [id number]
[2023-12-26 12:35] VITALS: BP 101/55; PULSE 95; O2SAT 93
[2023-12-26 12:46] LABS: Troponin 5 2HR 26.41 ng/L (0-15)
[2023-12-26 12:56] LABS: Troponin 5 2HR Delta -3.59 ABS# (0-10)
[2023-12-26 13:00] VITALS: BP 118/72; PULSE 86; O2SAT 94
--- NOTE | 2023-12-26 18:08 | DCPLANNER ---
Message sent to Cardiology for a follow up appointment with Emma
== END 2023-12-26 13:27 | disposition home or self-care (01) ==
PROVIDERS: Emergency Provider Emergency Medicine; PCP Family Medicine
DX: R07.9 Chest pain, unspecified (principal); J44.9 Chronic obstructive pulmonary disease, unspecified; Z79.82 Long term (current) use of aspirin; F17.210 Nicotine dependence, cigarettes, uncomplicated; I11.0 Hypertensive heart disease with heart failure; I50.30 Unspecified diastolic (congestive) heart failure; I25.2 Old myocardial infarction; E11.9 Type 2 diabetes mellitus without complications; Z99.81 Dependence on supplemental oxygen
CPT/HCPCS: 36415; 71045; 80053; 83880; 84484; 85025; 93005; 94640; 96374; 99285; J1885; J7613

== ENCOUNTER 2024-08-12 10:45 | Emergency (ER) | payer MEDICARE, SELFPAY ==
[2024-08-12 10:48] VITALS: BP 150/84; PULSE 77; RESP 18; TEMP 36.6; O2SAT 96; BMI 30.4
[2024-08-12 11:10] LABS: Basophils # 0.1 10^3/uL (0.0-0.1); Basophils % 1.1 %; Eosinophils # 0.5 10^3/uL (0.0-0.8); Eosinophils % 8.3 %; Hematocrit 41.1 % (37-53); Lymphocytes # 1.5 10^3/uL (0.8-4.8); Lymphocytes % 23.3 %; Mean Corpuscular HGB Conc 33.8 g/dL (30-55); Mean Corpuscular Hemoglobin 31.1 pg (27-33); Mean Corpuscular Volume 91.9 fl (82-101); Mean Platelet Volume 8.9 fL (7.4-10.4); Monocytes # 0.7 10^3/uL (0.2-0.9); Monocytes % 11.3 %; Neutrophils # 3.48 10^3/uL (1.8-7.7); Neutrophils % 55.5 %; Nucleated Red Blood Cells % 0 %; Platelet Count 211 10^3/cmm (157-399); Red Blood Count 4.47 10^6/uL (3.85-5.65); Red Cell Distribution Width 13.6 % (12.1-15.1); White Blood Count 6.27 10^3/uL (3.29-11.43)
--- NOTE | 2024-08-12 11:19 | CT_ITS ---
WS: [id number] CT ABDOMEN PELVIS TECHNIQUE: Contrast-enhanced CT of the abdomen and pelvis with coronal and sagittal reformatted image s. CLINICAL INFORMATION: abdominal pain, constipation, umbilical hernia? COMPARISON: 2019 DLP: 637.[address] scans at [facility] use at least one of these dose optimization techniques: automated e xposure control; mA and/or kV adjustment per patient size (includes targeted exams where dose is matc hed to clinical indication); or iterative reconstruction. FINDINGS: Hepatomegaly with diffuse fatty infiltration of the liver. Cholecystectomy. Intrahepatic bi liary ductal dilatation with dilatation of the common bile duct unchanged. Slight bibasal ectasis. Ca lcified granulomas in the lung bases. A few tiny micronodules in the lung bases. Small esophageal her franklin. Fatty atrophy of the pancreas. Celiac and SMA are patent. Adrenal glands are normal. Normal babak l parenchymal enhancement. No hydronephrosis. Tiny fat-containing umbilical hernia. Disc space narrow ing worse at L3-L5. Moderate central canal stenosis L4-5. Enhancing heterogeneous nodular prostate measuring 5.7 x 4.7 cm with evidence of bladder outlet obstr uction. Recommend correlation PSA. CT/CT abdomen pelvis w con* [id number] IMPRESSION: 1. Tiny fat-containing umbilical hernia. No herniated bowel. 2. Prior cholecystectomy with intra and extrahepatic biliary ductal dilatation unchanged since 01/24/2019. 3. Tiny esophageal hernia. 4. Enlarged heterogeneously enhancing nodular prostate with bladder outlet obs truction. Recommend correlation PSA. 5. Sigmoid diverticulosis. 6. Mild RIGHT colon constipation. 7. No other acute findings.
--- NOTE | 2024-08-12 11:20 | XR_ITS ---
WS: [id number] Exam: XR chest 1V portable [id number] Date/Time of Exam: 08/12/2024 11:21 AM Reason For Exam: sob Comparison 12/26/2023. There is infiltrate in the lingula suspicious for developing pneumonia. Chronic change noted in the R IGHT lung base. Heart size is normal. The mediastinum is normal in contour. The lungs are hyperinflat ed. Bony structures are intact. XR/XR chest 1V portable [id number] IMPRESSION: 1. Lingular infiltrate suspicious for developing pneumonia. Superimposed chroni c changes noted. 2. Pulmonary hyperinflation which may indicate COPD.
--- NOTE | 2024-08-12 11:23 | W.ED.GENADLT ---
HPI - General Adult General: Chief complaint: Abdominal Pain Stated complaint: abd Pain Time Seen by Provider: 08/12/24 10:49 Source: patient and EMS Mode of arrival: EMS Limitations: no limitations History of Present Illness: Patient is a 78-year-old male presents to ED today with a few separate complaints. Complains of chronic abdominal pains and constipation. Patient states he cannot eat any solid foods as it causes him to become very backed up . States he lives on chocolate milk and cupcakes. States he does not have any issues swallowing his food. He states it is not uncommon to go 6 to 7 days without a bowel movement. He feels like he has a mass or lump just above my navel . He states he has had evaluation for this before but has never been told it was a hernia. He feels like his abdomen always hurts. He is concerned about a tumor. Patient states he is also been having some shortness of breath. He does have COPD and continues to smoke daily. He has a chronic smoker's cough . He states this morning he was coughing so hard that he had difficulty breathing. This was reportedly why the ambulance was contacted. Upon arrival he states that this episode has subsided and he no longer feels short of breath. He wears 2 L of oxygen continuously. He has not had to increase this recently. He never had any episodes of chest pain and is chest pain-free at time of my examination. Relieving factors: none Exacerbating factors: none Associated symptoms: Reports dyspnea (chronic-at baseline; chronically on 2L O2); Deny chest pain, headache(s), malaise, nausea, palpitations, syncope or vomiting Treatments prior to arrival: none Related Data Home Medications Medication Instructions Recorded Confirmed pravastatin 20 mg tablet 20 mg PO BEDTIME 11/10/19 12/26/23 sitagliptin phosphate 50 mg tablet 50 mg PO QAM 11/10/19 12/26/23 (Januvia) tamsulosin 0.4 mg capsule (Flomax) 0.4 mg PO QAM 11/10/19 12/26/23 albuterol sulfate 90 mcg/actuation 2 puff inhalation Q4H PRN 07/27/23 12/26/23 aerosol inhaler Shortness Of Breath aspirin 81 mg tablet,delayed 81 mg PO QAM 09/04/23 12/26/23 release furosemide 40 mg tablet 40 mg PO QAM 09/04/23 12/26/23 hydrocodone 10 mg-acetaminophen 1 - 2 tab PO .EVERY 4-6 HOURS PRN 09/04/23 12/26/23 325 mg tablet Pain ipratropium 20 mcg-albuterol 100 1 puff inhalation Q6H 09/04/23 12/26/23 mcg/actuation mist for inhalation (Combivent Respimat) latanoprost 0.005 % eye drops 1 drp ophthalmic (eye) BEDTIME 09/04/23 12/26/23 lisinopril 5 mg tablet 5 mg PO QAM 09/04/23 12/26/23 naloxegol 25 mg tablet (Movantik) 25 mg PO QAM 09/04/23 12/26/23 naloxone 0.4 mg/mL injection 0.4 mg SUBCUT Q3M PRN Opioid 09/04/23 12/26/23 solution Overdose nitroglycerin 0.4 mg sublingual 0.4 mg sublingual Q5M PRN Chest 09/04/23 12/26/23 tablet (Nitrostat) Pain potassium chloride 20 mEq 20 meq PO QAM 09/04/23 12/26/23 tablet,extended release(part/cryst) mirtazapine 15 mg tablet 15 mg PO BEDTIME 11/10/23 12/26/23 fluticasone fur. 100 mcg-umeclid 1 inh inhalation DAILY 12/26/23 12/26/23 62.5 mcg-vilant 25 mcg inhalat.powder (Trelegy Ellipta) hydroxyzine HCl 50 mg tablet 50 mg PO DAILY PRN Insomnia 12/26/23 12/26/23 ipratropium 0.5 mg-albuterol 3 mg 3 ml inhalation Q4H PRN Shortness 12/26/23 12/26/23 (2.5 mg base)/3 mL nebulization Of Breath soln Previous Rx's Medication Instructions Recorded omeprazole 20 mg capsule,delayed 20 mg PO DAILY 4 weeks 11/10/19 release revefenacin 175 mcg/3 mL solution 175 mcg (3 mL) inhalation DAILY 09/11/23 for nebulization (Yupepetrai) #90 mL amoxicillin 875 mg-potassium 1 tab PO BID #14 tabs 08/12/24 clavulanate 125 mg tablet azithromycin 250 mg tablet See Rx Instructions PO .COMPLEX #6 08/12/24 tabs Allergies Allergy/AdvReac Type Severity Reaction Status Date / Time buspirone Allergy ADR-Itching Verified 12/10/23 11:00 Review of Systems Const: Denies: fever(s), chills, body aches, fatigue or malaise Card: Reports: dyspnea on exertion (chronic-at baseline); Denies: chest pain, palpitations, irregular heart rhythm, edema, swelling of feet/ankles, lightheadedness, syncope, pre-syncope, leg pain with exertion or acrocyanosis Resp: Reports: dyspnea (chronic-at baseline; chronically on 2L O2); Denies: wheezing, pain on inspiration or hemoptysis GI: Reports: abdominal pain and constipation (chronic); Denies: nausea or vomiting : Denies: flank pain, difficulty urinating, dysuria, urinary frequency, urinary urgency or urinary hesitancy Neuro: Denies: headache(s) or dizziness PFSH ED PFSH: Medical History (Updated 08/12/24 @ 12:56 by DENIZ Desai) Non-compliant behavior Acute encephalopathy Diastolic CHF, acute NSTEMI (non-ST elevated myocardial infarction) Acute hypoxic on chronic hypercapnic respiratory failure Acute renal failure (ARF) CHF (congestive heart failure) Acute hypercapnic respiratory failure Smoker Hypertension COPD (chronic obstructive pulmonary disease) Diabetes Surgical History History of cholecystectomy History of carpal tunnel surgery of right wrist H/O hemorrhoidectomy H/O hernia repair Hx of tonsillectomy History of testicular surgery Social History Smoking and tobacco/nicotine status: current every day tobacco/nicotine user cigarettes Packs smoked per day: 1 Years cigarettes smoked: 66 [ Other cigarette details: Started in 1956] Quit status (tobacco/nicotine): considering quitting Second hand smoke exposure: Yes Alcohol intake: never Substance/Drug Use: never Lives independently: Yes Household members: none Marital status: / service: No Current occupational status: retired Pets and animals: No Do you think of yourself as: Straight/Heterosexual Current gender identity: Male Physical Exam Const: COMMON NORMALS: no acute distress, patient oriented x3, no limitations, alert and well nourished GENERAL APPEARANCE: cooperative ORIENTATION/CONSCIOUSNESS: Yes awake, Yes oriented to person, Yes oriented to place and Yes oriented to time Eye: COMMON NORMALS: no scleral icterus Neck/C-Spine: COMMON NORMALS: no JVD Chest: COMMONS NORMALS: normal inspection of the chest and normal palpation of entire chest wall Resp: COMMON NORMALS: normal respiratory effort and clear to auscultation bilaterally AUSCULTATION: clear to auscultation bilaterally OTHER: satting normal on his normal O2 Cardio: COMMON NORMALS: no JVD, regular rate and regular rhythm RATE: regular rate RHYTHM: regular rhythm GI: COMMON NORMALS: Normal to inspection, nondistended, normoactive bowel sounds present, Soft to palpation and No hepatosplenomegaly present INSPECTION: Yes normal to inspection AUSCULTATION: Yes normoactive bowel sounds PALPATION: Yes Soft to palpation, Yes No hepatosplenomegaly present and Yes Other GI palpation findings present (small non-incarcerated umbilical hernia) : COMMON NORMALS: Yes no CVA tenderness BLADDER/KIDNEY EXAM: Yes no CVA tenderness Back/Pelvis: COMMON NORMALS: no CVA tenderness and thoracic and lumbar spine normal to inspection Extremity: COMMON NORMALS: no clubbing, cyanosis or edema, no calf tenderness and no pedal edema GENERAL: Yes normal exam except as noted Neuro: RENEE COMA SCALE: document GCS findings Olcott coma scale eye opening: Spontaneous Olcott coma scale verbal response: Orientated Olcott coma scale motor response: Obey commands Renee coma scale total score: 15 COMMON NORMALS: patient oriented x3 SENSORIUM/ORIENTATION: Yes alert, Yes oriented to person, Yes oriented to place and Yes oriented to time Skin: COMMON NORMALS: no rashes or lesions noted GENERAL SKIN EXAM: no rashes or lesions noted Course Vital Signs: Vital signs: Vital Signs Temperature 97.9 F 08/12/24 10:48 Pulse Rate 68 08/12/24 12:30 Respiratory Rate 20 H 08/12/24 11:31 Blood Pressure 113/72 08/12/24 12:30 Pulse Oximetry 92 08/12/24 12:30 Oxygen Delivery Me thod Room Air 08/12/24 12:30 Oxygen Flow Rate 2 08/12/24 11:31 [facility] - General Adult Medical Decision Making Patient clinically appears in no acute distress. Her blood work today is unremarkable. He has chronic constipation and abdominal pains. He does take high-dose hydrocodone multiple times daily. This most likely is opiate induced. He does have a poor diet stating he lives on chocolate milk and cupcakes stating that any solid foods causes constipation to worsen. CT scan is essentially unremarkable for acute pathology. He has a tiny fat-containing umbilical hernia that was appreciated clinically. He does have an enlarged prostate. States he has never received a prostate exam or PSA. This can be followed up with by his primary care provider. CXR showing a suspicious lingular infiltrate. Will place on antibiotics for pneumonia coverage. We can have him follow-up with general surgery/GI for evaluation of endoscopy/colonoscopy as he is not up-to-date on his colonoscopy screenings. Return ED precautions given. Medical Records I reviewed the patient's medical records. Lab Data I reviewed the patient's lab results. 08/12/24 11:00 08/12/24 11:00 Radiology Impressions Abdomen/Pelvis CT 08/12/24 11:19 IMPRESSION: 1. Tiny fat-containing umbilical hernia. No herniated bowel. 2. Prior cholecystectomy with intra and extrahepatic biliary ductal dilatation unchanged since 01/24/2019. 3. Tiny esophageal hernia. 4. Enlarged heterogeneously enhancing nodular prostate with bladder outlet obstruction. Recommend correlation PSA. 5. Sigmoid diverticulosis. 6. Mild RIGHT colon constipation. 7. No other acute findings. Chest X-Ray 08/12/24 11:20 IMPRESSION: 1. Lingular infiltrate suspicious for developing pneumonia. Superimposed chronic changes noted. 2. Pulmonary hyperinflation which may indicate COPD. Laboratory Results WBC 6.27 10^3/uL (3.29-11.43) 08/12/24 11:00 RBC 4.47 10^6/uL (3.85-5.65) 08/12/24 11:00 Hgb 13.90 g/dL (11.27-16.99) 08/12/24 11:00 Hct 41.1 % (37-53) 08/12/24 11:00 MCV 91.9 fl (82-101) 08/12/24 11:00 MCH 31.1 pg (27-33) 08/12/24 11:00 MCHC 33.8 g/dL (30-55) 08/12/24 11:00 RDW 13.6 % (12.1-15.1) 08/12/24 11:00 Plt Count 211 10^3/cmm (157-399) 08/12/24 11:00 MPV 8.9 fL (7.4-10.4) 08/12/24 11:00 Neut % (Auto) 55.5 % 08/12/24 11:00 Lymph % (Auto) 23.3 % 08/12/24 11:00 Davidson % (Auto) 11.3 % 08/12/24 11:00 Eos % (Auto) 8.3 % 08/12/24 11:00 Baso % (Auto) 1.1 % 08/12/24 11:00 Neut # (Auto) 3.48 10^3/uL (1.8-7.7) 08/12/24 11:00 Lymph # (Auto) 1.5 10^3/uL (0.8-4.8) 08/12/24 11:00 Davidson # (Auto) 0.7 10^3/uL (0.2-0.9) 08/12/24 11:00 Eos # (Auto) 0.5 10^3/uL (0.0-0.8) 08/12/24 11:00 Baso # (Auto) 0.1 10^3/uL (0.0-0.1) 08/12/24 11:00 Nucleated RBC % (auto) 0 % 08/12/24 11:00 Nucleated RBCs # 0.0 /100WBC 08/12/24 11:00 Sodium 137 mmol/L (136-145) 08/12/24 11:00 Potassium 4.1 mmol/L (3.5-5.1) 08/12/24 11:00 Chloride 99 mmol/L (98-107) 08/12/24 11:00 Carbon Dioxide 30 mmol/L (22-29) H 08/12/24 11:00 Anion Gap 12.1 (5-19) 08/12/24 11:00 BUN 7 mg/dL (8-23) L 08/12/24 11:00 Creatinine 0.7 mg/dL (0.7-1.2) 08/12/24 11:00 GFR Calculation Not Reportable 08/12/24 11:00 Glucose 105 mg/dL (65-115) 08/12/24 11:00 Calculated Osmolality 282 mOsm/kg (285-295) L 08/12/24 11:00 Calcium 8.5 mg/dL (8.5-10.5) 08/12/24 11:00 Total Bilirubin 0.7 mg/dL (0.15-1.2) 08/12/24 11:00 AST 9 U/L (0-40) 08/12/24 11:00 ALT < 5 U/L (0-41) 08/12/24 11:00 Alkaline Phosphatase 67 U/L (40-130) 08/12/24 11:00 Total Protein 6.0 g/dL (6.6-8.7) L 08/12/24 11:00 Albumin 3.6 g/dL (3.5-5.2) 08/12/24 11:00 Globulin 2.4 g/dL (1.3-4.6) 08/12/24 11:00 All radiology interpretation(s) finalized by discharge Discharge Plan Discharge Patient Disposition: Home Clinical Impression: Chronic constipation, Enlarged prostate, Lingular pneumonia Condition: Stable Prescriptions: New azithromycin 250 mg tablet See Rx Instructions .ROUTE .COMPLEX Qty: 6 0RF Rx Instructions: take 500 mg today (day 1), then 250 mg for 4 days (days 2-5) amoxicillin-pot clavulanate 875-125 mg tablet 1 tab PO BID Qty: 14 0RF No Action albuterol sulfate 90 mcg/actuation HFA aerosol inhaler 2 puff inhalation Q4H PRN (Reason: Shortness Of Breath) Yupelri 175 mcg/3 mL solution for nebulization 175 mcg inhalation DAILY Qty: 90 6RF tamsulosin [Flomax] 0.4 mg Capsule 0.4 mg PO QAM pravastatin 20 mg Tablet 20 mg PO BEDTIME Januvia 50 mg Tablet 50 mg PO QAM omeprazole 20 mg capsule,delayed release(DR/EC) 20 mg PO DAILY 28 Days 1RF hydrocodone-acetaminophen 10-325 mg tablet 1 - 2 tab PO .EVERY 4-6 HOURS PRN (Reason: Pain) aspirin 81 mg Tablet,Delayed Release (Dr/Ec) 81 mg PO QAM furosemide 40 mg tablet 40 mg PO QAM latanoprost 0.005 % drops 1 drp ophthalmic (eye) BEDTIME potassium chloride 20 mEq tablet,ER particles/crystals 20 meq PO QAM lisinopril 5 mg tablet 5 mg PO QAM Combivent Respimat 20-100 mcg/actuation mist 1 puff INHALATION Q6H Movantik 25 mg tablet 25 mg PO QAM Rx Instructions: BEFORE BREAKFAST naloxone 0.4 mg/mL Solution 0.4 mg SUBCUT Q3M PRN (Reason: Opioid Overdose) Rx Instructions: NTExceed 10 mg total dose/episode nitroglycerin [Nitrostat] 0.4 mg Tablet, Sublingual 0.4 mg SUBLINGUAL Q5M PRN (Reason: Chest Pain) Rx Instructions: do not exceed 3 doses per episode ipratropium-albuterol 0.5 mg-3 mg(2.5 mg base)/3 mL solution for nebulization 3 ml INHALATION Q4H PRN (Reason: Shortness Of Breath) hydroxyzine HCl 50 mg tablet 50 mg PO DAILY PRN (Reason: Insomnia) Trelegy Ellipta 100-62.5-25 mcg blister with device 1 inh INHALATION DAILY mirtazapine 15 mg tablet 15 mg PO BEDTIME Discharge Orders: Discharge ED (Routine); Ordered 08/12/24 Ordered By: Christen Parry Referrals: Cornelia Ayala DO [Primary Care Provider] - Patient Instructions: Constipation (DC), Pneumonia (ED) Activity Restrictions/Additional Instructions: As we discussed, there are several issues that I would like you to follow-up with your primary care for. You need to discuss options regarding your chronic constipation. I feel there probably is some degree of opiate induced constipation given your chronic opiate use. You also need to increase fiber in your diet. With your chronic abdominal pain you also need to talk to them about referral for endoscopy/colonoscopy. You have indicated you are not up-to-date on your preventative colonoscopy screening. I can also place a referral for general surgery/GI from the emergency department for this. He will need to follow-up with primary care for reevaluation of your pneumonia to make sure this is improving on your antibiotics. On your CT scan today, your prostate was found to be very enlarged. Recommendation with correlation wtih a PSA which is a test your primary care can order. Coding Level of Care Code ED Mixing And Dispensing Supervisor for Jf Reagan
[2024-08-12 11:30] LABS: Alanine Aminotransferase < 5 U/L (0-41); Albumin Level 3.6 g/dL (3.5-5.2); Alkaline Phosphatase 67 U/L (40-130); Anion Gap 12.1 (5-19); Aspartate Amino Transferase 9 U/L (0-40); Blood Urea Nitrogen 7 mg/dL (8-23); Calcium 8.5 mg/dL (8.5-10.5); Carbon Dioxide 30 mmol/L (22-29); Chloride 99 mmol/L (98-107); Creatinine Clr Calc Pharmacy 89.9771; Globulin 2.4 g/dL (1.3-4.6); Glucose 105 mg/dL (65-115); Osmolality Calculated 282 mOsm/kg (285-295); Potassium 4.1 mmol/L (3.5-5.1); Sodium 137 mmol/L (136-145); Total Bilirubin 0.7 mg/dL (0.15-1.2)
[2024-08-12 11:31] VITALS: BP 106/64; PULSE 85; RESP 20; O2SAT 95
[2024-08-12] MEDS: iohexol 350 mg/mL 500 mL Btl (per mL) IV (12:07)
[2024-08-12 12:30] VITALS: BP 113/72; PULSE 68; O2SAT 92
[2024-08-12 13:00] VITALS: BP 120/86; PULSE 67; O2SAT 96
--- NOTE | 2024-08-12 13:00 | ECG_ITS ---
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
--- NOTE | 2024-08-12 13:11 | PC.PHAR ---
Pt states Gabapentin causes night stewart but can't take. States he needs something different to help with nerve pain. Pt also struggling with oxygen unit at home-unable to breathe well. Pt states portable oxygen units provide better oxygen than home unit.
[2024-08-12 13:27] VITALS: BP 120/86; PULSE 85; O2SAT 96
[2024-08-12 13:41] LABS: Bilirubin Urine Negative (Negative); Blood Urine Negative (Negative); Glucose Urine UA Negative (Normal); Ketones Urine Negative (Negative); Leukocyte Esterase Urine Negative (Negative); Nitrate Urine Negative (Negative); Protein Urine Negative (Negative); Urine Appearance Clear (CLEAR); Urine Color Yellow (Yellow); pH Urine 6.5 (5-7)
[2024-08-12 13:46] LABS: Add Urine Microscopic? YES; Bacteria Urine None Seen /hpf; Hyaline Casts Urine 0-4 /lpf; RBC Urine 0-2 /hpf (0-2); Squamous Epithelial Cell Urine 0-5 /hpf (0-5); WBC Urine 0-5 /hpf (0-5)
--- NOTE | 2024-08-13 09:46 | DCPLANNER ---
Message sent to General surgery for follow up -
== END 2024-08-12 13:28 | disposition home or self-care (01) ==
PROVIDERS: Emergency Provider Physician Assistant; PCP Family Medicine
DX: K59.09 Other constipation (principal); N40.0 Benign prostatic hyperplasia without lower urinary tract symptoms; J18.1 Lobar pneumonia, unspecified organism; Z79.82 Long term (current) use of aspirin; F17.210 Nicotine dependence, cigarettes, uncomplicated; E11.9 Type 2 diabetes mellitus without complications; I11.0 Hypertensive heart disease with heart failure; I50.30 Unspecified diastolic (congestive) heart failure
CPT/HCPCS: 36415; 71045; 74177; 80053; 81001; 85025; 93005; 99285

== ENCOUNTER 2025-02-23 08:29 | Emergency (ER) | payer MEDICARE, SELFPAY ==
[2025-02-23] VITALS (7 sets, daily range): BP systolic 108–123; BP diastolic 71–80; PULSE 70–89; RESP 16–18; TEMP 36.5; O2SAT 88–98
--- NOTE | 2025-02-23 08:50 | XR_ITS ---
WS: [id number] XR chest 1V portable [id number] REASON FOR EXAM: dyspnea/cough FINDINGS: The chest is relatively stable in appearance compared to 08/12/2024. There is moderate tortuosity of the thoracic aorta with mild cardiomegaly. Calcified granulomatous disease bilaterally. There are chronic interstitial lung opacities in both lower lungs and in the lingula of the left lung. Areas of lucency in the uppermost lung schwarz compatible with central lobar emphysema. Compared to the previous examination no definite acute pulmonary parenchymal or pleural abnormality is identified. No definite pulmonary edema or inflammatory infiltrate. 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 XR/XR chest 1V portable [id number] IMPRESSION: Chronic abnormalities without definite acute abnormality as above.
--- NOTE | 2025-02-23 08:50 | ECG_ITS ---
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 Measurements Intervals [place] Rate: 80 P: 76 OR: 174 QRS: 74 QRSD: 94 T: 78 QT: 325 QTc: 375 Interpretive Statements SINUS RHYTHM WITH SINUS ARRHYTHMIA Compared to ECG 08/12/2024 10:46:11 No significant changes Electronically Signed On 02-23-2025 09:10:05 CDT by Carlitos Carter M.D. [id number]
[2025-02-23 09:01] LABS: ABG PCO2 45.3 mmHg (35-45); ABG PH Result 7.44 (7.35-7.45); Alveolar-Arterial Oxygen Gradi 4.2 mmHg (5-10); Arterial Blood Gas Hematocrit 44.8 % (42-52); Base Excess ABG 5.8 mmol/L (-2.0-2.0); Blood Gas Allen Test Pos; Blood Gas Operator Identificat WALCI; Blood Gas Sample Site Radial, right; Blood Gas Sample Type Arterial; Carboxyhemoglobin 3.7 %THgb (0.4-20.1); HCO3 ABG 30.9 mmol/L (22-26); Ionized Calcium Level - ABG 1.2 mmol/L (1.1-1.4); Methemoglobin 0.8 % (0.4-1.5); Oxygen Device ROOM AIR; Oxygen Saturation ABG 94.3; PO2 ABG 61.6 mmHg (80.0-100.0); PO2 FiO2 Ratio Arterial Blood 293; Potassium Level - ABG 3.9 mmol/L (3.5-5.0); Total Hemoglobin 14.6 g/dL (14-18)
--- NOTE | 2025-02-23 09:10 | ED_ITS ---
HPI - SOB/Dyspnea 2 General: Chief Complaint: Shortness of Breath/Dyspnea Stated Complaint: Cannot breathe Time Seen by Provider: 02/23/25 08:50 History of Present Illness: HPI Narrative: 71-year-old male presents emergency room complaining of shortness of breath. He is reports he has been very congested lately he also has some left ear pain he has had nasal drainage. He is supposed to wear 2 L of oxygen he wears it primarily only at night. He does have orthopnea which is chronic. He continues to smoke he has used nebulizers several times a day with minimal relief. His nebulizers consist of plain albuterol. He has not been on any antibiotics or steroids recently. Associated symptoms: Deny abdominal pain, chest pain or fever(s) Related Data Home Medications ?Medication ?Instructions ?Recorded ?Confirmed sitagliptin phosphate 50 mg tablet 50 mg PO QAM 02/23/25 (Januvia) tamsulosin 0.4 mg capsule (Flomax) 0.4 mg PO QAM 11/1002/23/25 aspirin 81 mg tablet,delayed 81 mg PO QAM 09/04/2303/15 release hydrocodone 10 mg-acetaminophen 1 - 2 tab PO .EVERY 4- 6 HOURS PRN 09/04/23 02/23/25 325 mg tablet Pain ipratropium 20 mcg-albuterol 100 1 puff inhalation Q6H PRN 09/04/23 02/23/25 mcg/actuation mist for inhalation Shortness Of Breath (Combivent Respimat) naloxone 0.4 mg/mL injection 0.4 mg SUBCUT Q3M PRN Opi oid 09/04/23 02/23/25 solution Overdose nitroglycerin 0.4 mg sublingual 0.4 mg sublingual Q5M PRN Chest 09/04/23 02/23/25 tablet (Nitrostat) Pain fluticasone fur. 100 mcg-umeclid 1 inh inhalation RAYNE Y 12/26/23 02/23/25 62.5 mcg-vilant 25 mcg inhalat.powder (Trelegy Ellipta) hydroxyzine HCl 50 mg tablet 50 mg PO BEDTIME PRN Inso mnia 12/26/23 02/23/25 alprazolam 0.25 mg tablet 0.25 mg PO .NIGHTLY PRN Anxi ety 02/23/25 02/23/25 diazepam 5 mg tablet 5 mg PO BEDTIME 02/23/2503/15 ofloxacin 0.3 % ear drops 4 drp otic (ear) BID 5 02/23/25 sertraline 25 mg tablet 25 mg PO DAILY 02/23/25 0503/15 Previous Rx's ?Medication ?Instructions ?Recorded omeprazole 20 mg capsule,delayed 20 mg PO DAILY 4 week s 11/10/19 release doxycycline hyclate 100 mg capsule 100 mg PO BID 10 da ys #20 caps 02/23/25 ipratropium 0.5 mg-albuterol 3 mg 3 ml inhalation Q4H PRN shortness 02/23/25 (2.5 mg base)/3 mL nebulization of breath or wheezing #90 mL soln methylprednisolone 4 mg tablets in See Rx Instructions PO .COMPLEX 02/23/25 a dose pack (Medrol (Harrison)) #21 ea Allergies Allergy/AdvReac Type Severity Reaction Status Date / Time buspirone Allergy ADR-Itching Verified 12/10/23 11:00 Review of Systems 2 Const: Denies: fever(s) or chills Card: Denies: chest pain Resp: Denies: dyspnea GI: Denies: abdominal pain : Denies: dysuria, urinary frequency or urinary urgency Musc: Denies: neck pain or back pain Skin/Breast: Denies: rash PFSH ED 2 PFSH: Medical History (Updated 02/23/25 @ 12:42 by Uriel Velasco DO) Non-compliant behavior Acute encephalopathy Diastolic CHF, acute NSTEMI (non-ST elevated myocardial infarction) Acute hypoxic on chronic hypercapnic respiratory failure Acute renal failure (ARF) CHF (congestive heart failure) Acute hypercapnic respiratory failure Smoker Hypertension COPD (chronic obstructive pulmonary disease) Diabetes Surgical History History of cholecystectomy History of carpal tunnel surgery of right wrist H/O hemorrhoidectomy H/O hernia repair Hx of tonsillectomy History of testicular surgery Social History Smoking and tobacco/nicotine status: current every day tobacco/nicotine user cigarettes Packs smoked per day: 1 Years cigarettes smoked: 66 [ Other cigarette details: Started in 6] Quit status (tobacco/nicotine): considering quitting Second hand smoke exposure: Yes Alcohol intake: never Substance/Drug Use: never Lives independently: Yes Household members: none Marital status: / service: No Current occupational status: retired Pets and animals: No Do you think of yourself as: Straight/Heterosexual Current gender identity: Male Physical Exam 2 Const: COMMON NORMALS: no acute distress GENERAL APPEARANCE: cooperative and comfortable ORIENTATION/CONSCIOUSNESS: Yes awake, Yes oriented to person, Yes oriented to place and Yes oriented to time HENMT: COMMON NORMALS: normocephalic, atraumatic and hearing grossly normal bilaterally HEAD & SCALP: normocephalic and atraumatic OTHER: Right TM external auditory canal are clear the left TM has anterior reddening and inflammation but is limited to 1 small area there is no posterior fluid or inflammation. No sign of drainage or perforation Resp: AUSCULTATION: rhonchi and wheezes Cardio: COMMON NORMALS: regular rate, regular rhythm and No murmurs present (Cardio) RATE: regular rate RHYTHM: regular rhythm GI: COMMON NORMALS: Soft to palpation and No hepatosplenomegaly present A USCULTATION: Yes normoactive bowel sounds PALPATION: Yes Soft to palpation, No Tenderness to palpation present (GI), No Guarding due to palpation present (GI) and Yes No hepatosplenomegaly present Extremity: COMMON NORMALS: normal to inspection, capillary refill normal, no clubbing, cyanosis or edema, no calf tenderness and no pedal edema Neuro: SENSORIUM/ORIENTATION: Yes oriented to person, Yes oriented to place and Yes oriented to time Skin: COMMON NORMALS: no rashes or lesions noted GENERAL SKIN EXAM: no rashes or lesions noted Course 2 Vital Signs: Vital signs: Vital Signs Temperature 97.7 F 02/23/25 08:50 Pulse Rate 89 02/23/25 12:53 Respiratory Rate 18 02/23/25 11:26 Blood Pressure 122/80 02/23/25 12:53 Pulse Oximetry 93 02/23/25 12:53 Oxygen Delivery Me thod Nasal Cannula 02/23/25 11:26 Oxygen Flow Rate 2 02/23/25 11:34 MDM - SOB/Dyspnea Medical Decision Making Patient's symptoms improved after steroids and nebulizer. Oxygen saturations are maintaining on 2 L/min at rest. Patient is not usually ambulatory restricted to a wheelchair unfortunately continues to smoke which exacerbates his issues. Discharged home on doxycycline steroid taper and changed to albuterol ipratropium bromide for rescue. Follow-up with his primary care doctor within the next week Medical Records I reviewed the patient's medical records. Lab Data I reviewed the patient's lab results. 02/23/25 09:35 02/23/25 09:35 Labs/Radiology: Radiology Impressions Chest X-Ray 02/23/25 08:50 IMPRESSION: Chronic abnormalities without definite acute abnormality as above. Laboratory Results WBC 6.08 10^3/uL (3.29-11.43) 02/23/25 09:35 RBC 4.40 10^6/uL (3.85-5.65) 02/23/25 09:35 Hgb 13.60 g/dL (11.27-16.99) 02/23/25 09:35 Hct 40.4 % (37-53) 02/23/25 09:35 MCV 91.8 fl (82-101) 02/23/25 09:35 MCH 30.9 pg (27-33) 02/23/25 09:35 MCHC 33.7 g/dL (30-55) 02/23/25 09:35 RDW 13.6 % (12.1-15.1) 02/23/25 09:35 Plt Count 165 10^3/cmm (157-399) 02/23/25 09:35 MPV 9.1 fL (7.4-10.4) 02/23/25 09:35 Neut % (Auto) 62.3 % 02/23/25 09:35 Lymph % (Auto) 22.0 % 02/23/25 09:35 Morrison % (Auto) 8.7 % 02/23/25 09:35 Eos % (Auto) 5.8 % 02/23/25 09:35 Baso % (Auto) 0.7 % 02/23/25 09:35 Neut # (Auto) 3.79 10^3/uL (1.8-7.7) 02/23/25 09:35 Lymph # (Auto) 1.3 10^3/uL (0.8-4.8) 02/23/25 09:35 Morrison # (Auto) 0.5 10^3/uL (0.2-0.9) 02/23/25 09:35 Eos # (Auto) 0.4 10^3/uL (0.0-0.8) 02/23/25 09:35 Baso # (Auto) 0.0 10^3/uL (0.0-0.1) 02/23/25 09:35 Nucleated RBC % (auto) 0 % 02/23/25 09:35 Nucleated RBCs # 0.0 /100WBC 02/23/25 09:35 Specimen Type Arterial 02/23/25 08:50 Sample Site Radial, right 02/23/25 08:50 ABG pH 7.44 (7.35-7.45) 02/23/25 08:50 ABG pCO2 45.3 mmHg (35-45) H 02/23/25 08:50 ABG pO2 61.6 mmHg (80.0-100.0) L 02/23/25 08:50 ABG PO2/FiO2 Ratio 293 02/23/25 08:50 ABG HCO3 30.9 mmol/L (22-26) H 02/23/25 08:50 ABG O2 Saturation 94.3 02/23/25 08:50 ABG Base Excess 5.8 mmol/L (-2.0-2.0) H 02/23/25 08:50 Jey Test Pos 02/23/25 08:50 A-a O2 Gradient 4.2 mmHg (5-10) L 02/23/25 08:50 Hematocrit 44.8 % (42-52) 02/23/25 08:50 Hgb O2 Saturation 90.0 % (95-100) L 02/23/25 08:50 Carboxyhemoglobin 3.7 %THgb (0.4-20.1) 02/23/25 08:50 Methemoglobin 0.8 % (0.4-1.5) 02/23/25 08:50 Total Hemoglobin 14.6 g/dL (14-18) 02/23/25 08:50 Sodium 136.0 mmol/L (131-143) 02/23/25 08:50 Potassium 3.9 mmol/L (3.5-5.0) 02/23/25 08:50 Glucose 112.0 mg/dL (70-115) 02/23/25 08:50 Ionized Calcium 1.2 mmol/L (1.1-1.4) 02/23/25 08:50 O2 Delivery Device Room air 02/23/25 08:50 FiO2 21.0 % 02/23/25 08:50 Ply Bander ID Walci 02/23/25 08:50 Sodium 137 mmol/L (136-145) 02/23/25 09:35 Potassium 4.3 mmol/L (3.5-5.1) 02/23/25 09:35 Chloride 98 mmol/L (98-107) 02/23/25 09:35 Carbon Dioxide 29 mmol/L (22-29) 02/23/25 09:35 Anion Gap 14.3 (5-19) 02/23/25 09:35 BUN 9 mg/dL (8-23) 02/23/25 09:35 Creatinine 0.7 mg/dL (0.7-1.2) 02/23/25 09:35 GFR Calculation Not Reportable 02/23/25 09:35 Glucose 103 mg/dL (65-115) 02/23/25 09:35 Calculated Osmolality 283 mOsm/kg (285-295) L 02/23/25 09:35 Calcium 9.0 mg/dL (8.5-10.5) 02/23/25 09:35 Total Bilirubin 0.6 mg/dL (0.15-1.2) 02/23/25 09:35 AST 8 U/L (0-40) 02/23/25 09:35 ALT < 5 U/L (0-41) 02/23/25 09:35 Alkaline Phosphatase 67 U/L (40-130) 02/23/25 09:35 Troponin T Baseline 24 ng/L (0-15) H 02/23/25 09:35 Troponin T 120 Minute 23.28 ng/L (0-15) H 02/23/25 11:26 Delta Troponin T -0.72 ABS# (0-10) L 02/23/25 11:26 C-Reactive Protein 3.0 mg/L (0.0-4.9) 02/23/25 09:35 Total Protein 5.8 g/dL (6.6-8.7) L 02/23/25 09:35 Albumin 3.7 g/dL (3.5-5.2) 02/23/25 09:35 Globulin 2.1 g/dL (1.3-4.6) 02/23/25 09:35 Urine Color Yellow (Yellow) 02/23/25 11:24 Urine Appearance Clear (CLEAR) 02/23/25 11:24 Urine pH 6 (5-7) 02/23/25 11:24 Ur Specific Stanton 1.015 (1.005-1.030) 02/23/25 11:24 Urine Protein Neg (Negative) 02/23/25 11:24 Urine Glucose (UA) Norm (Normal) 02/23/25 11:24 Urine Ketones Negative (Negative) 02/23/25 11:24 Urine Blood Neg (Negative) 02/23/25 11:24 Urine Nitrate Negative (Negative) 02/23/25 11:24 Urine Bilirubin Neg (Negative) 02/23/25 11:24 Urine Urobilinogen Norm mg/dL (Negative) 02/23/25 11:24 Ur Leukocyte Esterase Negative (Negative) 02/23/25 11:24 Amorphous Sediment Not Reportable 02/23/25 11:24 Influenza A (PCR) Negative (Negative) 02/23/25 09:07 Influenza Type B (PCR) Negative (Negative) 02/23/25 09:07 RSV (PCR) Negative (Negative) 02/23/25 09:07 SARS-CoV-2 (PCR) Negative (Negative) 02/23/25 09:07 All radiology interpretation(s) finalized by discharge Discharge Plan Discharge Patient Disposition: Home Clinical Impression: Acute exacerbation of chronic obstructive airways disease, Otalgia, left ear Condition: Stable Prescriptions: New ipratropium-albuterol 0.5 mg-3 mg(2.5 mg base)/3 mL solution for nebulization 3 ml inhalation Q4H PRN (Reason: shortness of breath or wheezing) Qty: 90 0RF methylprednisolone [Medrol (Harrison)] 4 mg tablets,dose pack See Rx Instructions .ROUTE .COMPLEX Qty: 21 0RF Rx Instructions: orally per package directions doxycycline hyclate 100 mg capsule 100 mg PO BID 10 Days Qty: 20 0RF No Action tamsulosin [Flomax] 0.4 mg Capsule 0.4 mg PO QAM Januvia 50 mg Tablet 50 mg PO QAM omeprazole 20 mg capsule,delayed release(DR/EC) 20 mg PO DAILY 28 Days 1RF hydrocodone-acetaminophen 10-325 mg tablet 1 - 2 tab PO .EVERY 4-6 HOURS PRN (Reason: Pain) aspirin 81 mg Tablet,Delayed Release (Dr/Ec) 81 mg PO QAM Combivent Respimat 20-100 mcg/actuation mist 1 puff INHALATION Q6H PRN (Reason: Shortness Of Breath) naloxone 0.4 mg/mL Solution 0.4 mg SUBCUT Q3M PRN (Reason: Opioid Overdose) Rx Instructions: NTExceed 10 mg total dose/episode nitroglycerin [Nitrostat] 0.4 mg Tablet, Sublingual 0.4 mg SUBLINGUAL Q5M PRN (Reason: Chest Pain) Rx Instructions: do not exceed 3 doses per episode hydroxyzine HCl 50 mg tablet 50 mg PO BEDTIME PRN (Reason: Insomnia) Trelegy Ellipta 100-62.5-25 mcg blister with device 1 inh INHALATION DAILY alprazolam 0.25 mg tablet 0.25 mg PO .NIGHTLY PRN (Reason: Anxiety) ofloxacin 0.3 % drops 4 drp otic (ear) BID sertraline 25 mg tablet 25 mg PO DAILY diazepam 5 mg tablet 5 mg PO BEDTIME Discharge Orders: Discharge ED (Routine); Ordered 02/23/25 Ordered By: Uriel Velasco Referrals: Cornelia Ayala DO [Primary Care Provider, Family Practice] Discharge Diet: Usual diet Discharge Activity: Increase activity as tolerated Patient Instructions: Opioid Safety, Pain Management Activity Restrictions/Additional Instructions: Thank you for choosing [facility] for your healthcare needs today. It is very important that you follow up as instructed or that you return to the Emergency Department should you have concerns or if your condition changes or worsens in any way. You were seen in the emergency room with complaints of shortness of breath. On evaluation there is acute exacerbation of your COPD recommend that you use your oxygen continuously at 2 L/min use albuterol ipratropium bromide nebulizers as needed throughout the day. Also recommend starting a steroid taper tomorrow. We also recommend starting doxycycline 1 tablet twice a day for 10 days. Finally regarding the discomfort in your left ear recommend that you follow-up with Dr. Pereyra at the ear nose [facility] throat clinic as soon as you are able. Print Language: Kinyarwanda Coding Level of Care Code ED Electrical Design Technologist for Jf Reagan
[2025-02-23] MEDS: dexamethasone 10 mg/mL INJ IM (09:36)
[2025-02-23] MEDS: ipratropium-albuterol 3 mL Neb INHALATION (09:40)
[2025-02-23 09:42] LABS: Basophils % 0.7 %; Eosinophils # 0.4 10^3/uL (0.0-0.8); Eosinophils % 5.8 %; Hematocrit 40.4 % (37-53); Lymphocytes # 1.3 10^3/uL (0.8-4.8); Mean Corpuscular HGB Conc 33.7 g/dL (30-55); Mean Corpuscular Hemoglobin 30.9 pg (27-33); Mean Corpuscular Volume 91.8 fl (82-101); Mean Platelet Volume 9.1 fL (7.4-10.4); Monocytes # 0.5 10^3/uL (0.2-0.9); Monocytes % 8.7 %; Neutrophils # 3.79 10^3/uL (1.8-7.7); Neutrophils % 62.3 %; Nucleated Red Blood Cells % 0 %; Platelet Count 165 10^3/cmm (157-399); Red Cell Distribution Width 13.6 % (12.1-15.1); White Blood Count 6.08 10^3/uL (3.29-11.43)
[2025-02-23 09:50] LABS: Influenza A NEGATIVE (Negative); Influenza B NEGATIVE (Negative); Respiratory Syncytial Virus Ce NEGATIVE (Negative); SARS-CoV-2 PCR NEGATIVE (Negative)
[2025-02-23 09:57] LABS: Troponin(5th) Baseline 24 ng/L (0-15)
[2025-02-23 10:00] LABS: Alanine Aminotransferase < 5 U/L (0-41); Albumin Level 3.7 g/dL (3.5-5.2); Alkaline Phosphatase 67 U/L (40-130); Anion Gap 14.3 (5-19); Aspartate Amino Transferase 8 U/L (0-40); Blood Urea Nitrogen 9 mg/dL (8-23); Carbon Dioxide 29 mmol/L (22-29); Chloride 98 mmol/L (98-107); Creatinine Clr Calc Pharmacy 82.2994; Globulin 2.1 g/dL (1.3-4.6); Glucose 103 mg/dL (65-115); Osmolality Calculated 283 mOsm/kg (285-295); Potassium 4.3 mmol/L (3.5-5.1); Sodium 137 mmol/L (136-145); Total Bilirubin 0.6 mg/dL (0.15-1.2); Total Protein 5.8 g/dL (6.6-8.7)
--- NOTE | 2025-02-23 10:30 | PC.PHAR ---
Pt has most of his rx bottles with him. Movantik 25mg daily last fill 03/03/24 30ds, is really old. Several medications removed from chart, pt is no longer taking. They are: Albuterol HFA 2p q4h prn-07/27/23 25ds Furosemide 40mg qam 07/22/24 90ds Gabapentin 100mg tid 08/04/24 90ds Latanoprost 0.005% 1gtt qhs 11/15/24 25ds Lisinopril 5mg qam 05/30/24 90ds Nitrostat 0.4mgSL q5m prn 09/04/23 10ds NNarcan0.4 q3mprn 09/04/23 2ds Oxybutynin Chl. 5mg 08/05/24 30ds Potassium chl 20meq qam 07/22/24 90ds Pravastatin 20mg hs 08/11/24 100ds
--- NOTE | 2025-02-23 10:50 | ECG_ITS ---
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 Measurements Intervals [place] Rate: 82 P: 81 MD: 181 QRS: 83 QRSD: 97 T: 81 QT: 334 QTc: 391 Interpretive Statements SINUS RHYTHM Compared to ECG 02/23/2025 08:39:50 Sinus arrhythmia no longer present Electronically Signed On 02-23-2025 10:27:59 CDT by Carlitos Carter M.D. [email or web address]
[2025-02-23 11:31] LABS: Add Urine Microscopic? NO
[2025-02-23 11:42] LABS: Urine Color Yellow (Yellow)
[2025-02-23 11:43] LABS: Bilirubin Urine Neg (Negative); Blood Urine Neg (Negative); Glucose Urine UA Norm (Normal); Ketones Urine Negative (Negative); Leukocyte Esterase Urine Negative (Negative); Nitrate Urine Negative (Negative); Protein Urine Neg (Negative); Specific Gravity, Urine 1.015 (1.005-1.030); Urine Appearance Clear (CLEAR); Urobilinogen Urine Norm (Negative); pH Urine 6 (5-7)
[2025-02-23 11:44] LABS: Charge for UA Resulting for Rev
[2025-02-23 11:51] LABS: Troponin 5 2HR 23.28 ng/L (0-15)
[2025-02-23 11:58] LABS: Troponin 5 2HR Delta -0.72 ABS# (0-10)
== END 2025-02-23 12:54 | disposition home or self-care (01) ==
PROVIDERS: Emergency Provider Family Medicine; PCP Family Medicine
DX: J44.1 Chronic obstructive pulmonary disease with (acute) exacerbation (principal); H92.02 Otalgia, left ear; Z79.82 Long term (current) use of aspirin; Z11.52 Encounter for screening for COVID-19; F17.210 Nicotine dependence, cigarettes, uncomplicated; I11.0 Hypertensive heart disease with heart failure; I50.31 Acute diastolic (congestive) heart failure; E11.9 Type 2 diabetes mellitus without complications
CPT/HCPCS: 36415; 36600; 71045; 80051; 80053; 81003; 82330; 82805; 84484; 85025; 86140; 87637; 93005; 94640; 94760; 96372; 99285; J1100; J9999

== ENCOUNTER 2025-05-24 09:27 | Emergency (ER) | payer MEDICARE, SELFPAY ==
[2025-05-24 09:28] VITALS: BP 130/71; PULSE 90; RESP 17; O2SAT 91; BMI 25.8
--- OUTSIDE RECORDS SUMMARY | 2025-05-24 09:36 | XMS_ITS | Encounter Summary ---
Author Organization [facility] Address [address] [place] [address] Care Team Providers Care Pineapple Plantation Manager Name Role Phone Cornelia Ayala DO Primary Care Provider [phone] Encounter Details Date Type Department Care Team (Late st Contact Info) Description 07/11/2019 Ancillary Orders [facility] [address] [place] [phone] Cornelia Ayala DO [address] [place] [address] Chronic midline thoracic back pain Social History Tobacco Use Types Packs/Day Years Used Date Smoking Tobacco: Every Day Cigarettes Smokeless Tobacco: Never Alcohol Use Standard Drinks/Week Comments No 0 (1 standard drink = 0.6 oz pur e alcohol) Sex and Gender Information Value Date Recorded Sex Assigned at Not on file 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 Exam: XR THORACIC SPINE 3 VW Date/Time of Exam: 07/11/2019 12:01 PM Reason For Exam: See Diagnosis. Diagnosis: Chronic midline thoracic back pain; Chronic midline thoracic back pain. Comparison: None Findings: Mild multilevel upper and more advanced mid and lower thoracic degenerative disc disease and a mild scoliosis. Limited visualization of degenerative changes throughout the cervical spine. IMPRESSION: 1. Degenerative changes. [id number] Narrative Procedure Note Andrew Rizzo MD - 07/13/2019 IMPRESSION: Please see below. Exam: XR THORACIC SPINE 3 VW Date/Time of Exam: 07/11/2019 12:01 PM Reason For Exam: See Diagnosis. Diagnosis: Chronic midline thoracic back pain; Chronic midline thoracic back pain. Comparison: None Findings: Mild multilevel upper and more advanced mid and lower thoracic degenerative disc disease and a mild scoliosis. Limited visualization of degenerative changes throughout the cervical spine. IMPRESSION: 1. Degenerative changes. [id number] Cornelia Ayala DO DIAGNOSTIC IMAGING ORDERABL ES Final Result documented in this encounter Visit Diagnoses Diagnosis Chronic midline thoracic back pain Chronic midline thoracic back pain documented in this encounter Care Teams Pineapple Plantation Manager Relationship Specialty Start Date End Date Cornelia Ayala DO [address] [place] [address] PCP - General Family Practice 03/05/18 documented as of this encounter
--- OUTSIDE RECORDS SUMMARY | 2025-05-24 09:36 | XMS_ITS | Encounter Summary ---
Author Organization [facility] Address [address] [place] [address] Care Team Providers Care Shoe Laster Name Role Phone Cornelia Ayala DO Primary Care Provider [phone] Encounter Details Date Type Department Care Team (Latest Contact Info) Description 08/07/2005 Outpatient Historical [facility] [address] [place] [address] Cristian Fernandez MD [address] [place] [address] CHEST PAIN NOS (Primary Dx) Social History Tobacco Use Types Packs/Day Years Used Date Smoking Tobacco: Never Assessed Sex and Gender Information Value Date Recorded Sex Assigned at Not on file 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
--- OUTSIDE RECORDS SUMMARY | 2025-05-24 09:36 | XMS_ITS | Encounter Summary ---
Author Organization [facility] Address [address] [place] [address] Care Team Providers Care Syrup Machine Laborer Name Role Phone Cornelia Ayala DO Primary Care Provider [phone] Encounter Details Date Type Department Care Team (Latest Contact Info) Description 11/10/2003 Outpatient Historical [facility] Roshan Farooq DO [address] [place] [address] NEURALGIA/NEURITIS NOS (Primary Dx) Social History Tobacco Use Types Packs/Day Years Used Date Smoking Tobacco: Never Assessed Sex and Gender Information Value Date Recorded Sex Assigned at Not on file 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
--- OUTSIDE RECORDS SUMMARY | 2025-05-24 09:36 | XMS_ITS | Clinical Summary ---
Author Organization 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 Name Role Phone Cornelia Ayala Primary Care Provider [phone] Allergies Active Allergy Reactions Criticality Noted Date Comments Buspirone Itching Low 07/01/2019 Cephalexin Nausea and Vomiting Low 01/11/2023 Lorazepam Other (See Comments) Low 02/04/2025 Made him sick Medications oxygen home deliveryIndicat ions:Chronic respiratory failure with hypoxia and hypercapnia ([facility]),Chron ic obstructive pulmonary disease, unspecified COPD type ([facility]) Home Oxygen Concentrator yes at 2 L/M Rest, 2 L/M Activity, 2 L/M Sleep, Delivery Device: Nasal CannulaPortabil ity: yes, 2 L/M Rest, 2 L/M Activity, May provide device best for patient needs(E system,home fill, conserving device)Length of Need: 99 months 1 Each 0 020 Active aspirin (ECOTRIN EC) 81 mg Tablet, Delayed Release (E.C.) Take 81 mg by mouth daily. 020 Active Narcan 4 mg/actuation [place], Non-Aerosol 022 Active Blood-Glucose Meter KitIndications: Type 2 diabetes mellitus with hyperglycemia, without long-term current use of insulin ([facility]) Test blood sugars daily and prn 1 Each 022 Active blood sugar diagnostic (Blood Glucose Test) StripIndication s:Type 2 diabetes mellitus with hyperglycemia, without long-term current use of insulin ([facility]) Test blood sugars daily and prn 100 Each 022 Active portable oxygenIndicatio ns:Chronic respiratory failure with hypoxia and hypercapnia (CMS/HCC) Face to Face completed within 30 days: yes Length of Need: 99 months By: Nasal Cannula Continuously at 2 L/min. 1 Each 023 Active revefenacin (Yupelri) 175 mcg/3 mL Solution for Nebulization Take 1 Vial by inhalation daily. Active formoterol (PERFOROMIST) 20 mcg/2 mL Solution for Nebulization Take 20 mcg by inhalation 2 times daily. Active nitroglycerin (NITROSTAT) 0.4 mg Tablet, SublingualIndic ations:Chest pain, unspecified type Place 1 Tablet (0.4 mg) under tongue every 5 minutes as needed for Chest Pain. 30 Tablet 4 024 Active polyethylene glycol 3350 (MIRALAX) 17 gram/dose Powder Take 17 Grams by mouth daily. Dissolve in 8 ounces of fluid and drink entire liquid OTC Active ipratropium-alb uteroL (Combivent Respimat) 20-100 mcg/actuation Mist Inhale ONE PUFF BY MOUTH EVERY SIX hours 4 Gram 024 Active fluticasone-ume clidinium-vilan terol (Trelegy Ellipta) 100-62.5-25 mcg Disk with DeviceIndicatio ns:Chronic obstructive pulmonary disease, unspecified COPD type (CMS/HCC) Take 1 Puff by inhalation daily. 60 Each 025 Active tamsulosin (FLOMAX) 0.4 mg capsule Take 1 Capsule (0.4 mg) by mouth daily. 90 Capsule 3 025 Active fluticasone propion-salmete roL (Advair Diskus) 500-50 mcg/dose disk inhaler Take 1 Puff by inhalation 2 times daily. Active albuterol sulfate HFA 90 mcg/actuation aerosol inhalerIndicati ons:Chronic respiratory failure with hypoxia and hypercapnia (CMS/HCC),COPD with acute exacerbation (CMS/HCC),Wheez ing INHALE TWO PUFFS EVERY FOUR HOURS as needed for SHORTNESS OF BREATH OR WHEEZING 8.5 Gram 6 025 Active ALPRAZolam (Xanax) 0.5 mg tabletIndicatio ns:Generalized anxiety disorder Take 1 Tablet (0.5 mg) by mouth 2 times daily as needed for Anxiety. 60 Tablet 1 025 Active naloxegoL (Movantik) 25 mg TabletIndicatio ns:Constipation due to opioid therapy Take 1 Tablet (25 mg) by mouth daily before breakfast. 100 Tablet 3 025 Active loratadine (CLARITIN) 10 mg tablet Take 1 Tablet (10 mg) by mouth daily. 90 Tablet 4 025 Active omeprazole (PriLOSEC) 20 mg Capsule, Delayed Release(E.C.) Take 1 Capsule (20 mg) by mouth daily. 90 Capsule 4 025 Active ketorolac tromethamine (TORADOL) 10 mg tablet Take 1 Tablet (10 mg) by mouth every 6 hours as needed for Pain. 15 Tablet 025 Active ipratropium-alb uteroL (DUONEB) 0.5 mg-3 mg(2.5 mg base)/3 mL Solution for NebulizationInd ications:Tobacc o use Inhale THE contents of ONE vial via NEBULIZER EVERY FOUR hours NEEDED FOR SHORTNESS OF BREATH OR wheezing. 300 mL 4 025 Active HYDROcodone-bernadette taminophen (NORCO) 10-325 mg TabletIndicatio ns:Chronic midline low back pain with bilateral sciatica,Chroni c neck pain Take 1 Tablet by mouth every 4 hours as needed for Pain, Moderate. Max Daily Amount: 6 Tablets 180 Tablet 025 Active ipratropium-alb uteroL (DUONEB) 0.5 mg-3 mg(2.5 mg base)/3 mL Solution for NebulizationInd ications:Tobacc o use INHALE THE CONTENTS OF 1 VIAL BY NEBULIZER EVERY 4 HOURS NEEDED FOR SHORTNESS OF BREATH. 300 mL 4 024 2024 Discontinued HYDROcodone-bernadette taminophen (NORCO) 10-325 mg Tablet Take 1 Tablet by mouth every 4 hours as needed for Pain, Moderate. 2024 Discontinued(R eorder) Active Problems Problem Noted Date Diagnosed Date Subacute maxillary sinusitis 03/26/2025 Recurrent acute suppurative otitis media with spontaneous rupture of left tympanic membrane 03/26/2025 Atherosclerosis of aorta 03/17/2024 Benign essential tremor 01/21/2023 Chronic tension-type headache, not intractable 0 01/21/2023 Dilated cbd, acquired 07/16/2022 Distended abdomen 07/16/2022 Diabetes mellitus 07/02/2022 Constipation due to opioid therapy 07/02/2022 Frail elderly 01/08/2022 Primary insomnia 04/20/2021 Chronic respiratory failure with hypoxia and hyp ercapnia 04/20/2021 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 04/20/2021 History of NH (myocardial infarction) 04/20/2021 Major depressive disorder, recurrent, in full re mission 11/10/2019 Type 2 diabetes mellitus wit hout complication, without long-term current use of insulin 03/09/2019 Chronic obstructive pulmonary disease 03/09/2019 Tobacco use 09/01/2016 Chronic neck pain Chronic back pain Mixed hyperlipidemia Essential hypertension Resolved Problems Problem Noted Date Diagnosed Date Resolved Date Opioid dependence with withdrawal 11/10/2019 04/20/2021 Encounters Date Type Department Care Team Description 05/22/2025 Refill [facility] [address] [address] Cornelia Ayala DO 05/19/2025 Telephone [facility] [address] [address] Cornelia Ayala, Medication Assistance 05/05/2025 Refill [facility] [address] [place] [address] Cornelia Ayala DO Tobacco use 04/23/2025 3:40 PM CDT Office Visit [facility] [address] [facility] [address] Cornelia Ayala DO Lightheadedness (Primary Dx); Panlobular emphysema (CMS/HCC); Chronic respiratory failure with hypoxia and hypercapnia; Type 2 diabetes mellitus without complication, without long-term current use of insulin (CMS/HCC); Essential hypertension; History of NH (myocardial infarction); Major depressive disorder, recurrent, in full remission; Mixed hyperlipidemia; Frail elderly; Constipation due to opioid therapy; 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; Benign essential tremor; Chronic midline low back pain with bilateral sciatica; Chronic neck pain; Atherosclerosis of aorta; Primary insomnia; Tobacco use 04/10/2025 Results Follow-Up [facility] [address] [place] [address] Cornelia Ayala DO CBC WITH DIFFERENTIAL, LIPID PANEL, TSH, Additional followed-up results: 2 04/09/2025 11:00 AM CDT Office Visit [facility] [address] [place] [phone] Cornelia Ayala, Type 2 diabetes mellitus without complication, without long-term current use of insulin (CMS/HCC) (Primary Dx); Generalized anxiety disorder; Constipation due to opioid therapy; Panlobular emphysema (CMS/HCC); Chronic respiratory failure with hypoxia and hypercapnia; Essential hypertension; History of NH (myocardial infarction); Major depressive disorder, recurrent, in full remission; Mixed hyperlipidemia; Frail elderly; 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; Benign essential tremor; Atherosclerosis of aorta; Chronic neck pain; Chronic tension-type headache, not intractable; Primary insomnia; Tobacco use 04/01/2025 2:49 PM CDT - 04/01/2025 11:59 PM CDT Hospital Encounter [facility] [address] [place] [address] Cornelia Ayala DO Discharge Disposition: Home or Self Care 04/01/2025 Results Follow-Up [facility] [address] [place] [phone] Cornelia Ayala DO MRI BRAIN WO CONTRAST 03/31/2025 External Device Data ST[facility] ABSTRACTION Provider, Abstract 03/26/2025 10:18 AM CDT - 03/26/2025 12:38 PM CDT Emergency [facility] Emergency Medicine [address] [place] [address] Franco Duncan MD Recurrent acute suppurative otitis media with spontaneous rupture of left tympanic membrane (Primary Dx); Subacute maxillary sinusitis Discharge Disposition: Home or Self Care 03/26/2025 Travel 03/24/2025 External Device Data STL ABSTRACTION Provider, Abstract 03/18/2025 Telephone [facility] [address] [place] [address] Cornelia Ayala, DO Medication Question 03/17/2025 Refill [facility] [address] [place] [phone] Cornelia Ayala, DO Generalized anxiety disorder 03/13/2025 Telephone [facility] [address] [place] [phone] Cornelia Ayala, DO Medication Assistance 03/13/2025 External Device Data Initial Department [address] [place] [address] Dr PAULINO: [place] [address] [facility] Emergency, 03/03/2025 [facility] [address] [place] [address] Cornelia Ayala, DO Constipation due to opioid therapy 02/24/2025 [facility] [address] [place] [address] Cornelia Ayala, DO Chronic respiratory failure with hypoxia and hypercapnia (CMS/HCC); COPD with acute exacerbation ([facility]); Wheezing 02/24/[address] [facility] Health Information Management [place] [address] [place] [address] Provider, Abstract from Last 3 Months Family History Medical History Relation Name Comments No Known Problems Father No Known Problems Mother Colon Cancer Neg Hx Relation Name Status Comments Father Mother Social History Tobacco Use Types Packs/Day Years Used Date Smoking Tobacco: Every Day Cigarettes 1 69.6 Started: 6 Passive Smoke Exposure: Past Smokeless Tobacco: Never Tobacco Cessation:Ready to Q uit: No; Counseling Given: Yes Alcohol Use Standard Drinks/Week Comments No 0 (1 standard drink = 0.6 oz pur e alcohol) Sex and Gender Information Value Date Recorded Sex Assigned at Not on file Legal Sex Male 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 Gender Identity Not on file Sexual Orientation Not on file Last Filed Vital Signs Vital Sign Reading Time Taken Comments Blood Pressure 148/74 04/23/2025 3:53 PM CDT Pulse 100 04/23/2025 3:52 PM CDT Temperature 36.4 C (97.5 F) 04/23/2025 3:52 PM CDT Respiratory Rate 18 04/23/2025 3:52 PM CDT Oxygen Saturation 91% 04/23/2025 3:52 PM CDT Inhaled Oxygen Concentration - - Weight 83.9 kg (185 lb) 04/23/2025 3:52 PM CDT Height 177.8 cm (5' 10 ) 04/23/2025 3:52 PM CDT Body Mass Index 26.54 04/23/2025 3:52 PM CDT Plan of Treatment Upcoming Encounters Date Type Department Care Team (Late st Contact Info) Description 06/25/2025 10:40 AM CDT Office Visit [facility] [address] [place] [address] Cornelia Ayala, DO [address] [place] [phone] 10/08/2025 10:40 AM CONSTRUCTION ADMINISTRATIVE ASSISTANT Office Visit [facility] [address] [place] [address] Cornelia Ayala, DO [address] [place] [address] Health Maintenance Due Date Last Done Comments DTAP/TDAP/TD VACCINES (1 - Tdap) 1965 PNEUMOCOCCAL VACCINE 50+ YEA RS (1 of 2 - PCV) 1965 Lung Cancer Screening 1996 ZOSTER VACCINE (1 of 2) 1996 RSV VACCINE (60+ or ) (1 - 1-dose 75+ series) 2021 DIABETES ANNUAL RETINAL EXAM 02/27/2023 02/27/2022 ROXANNE uACR (Auto Order) 10/22/2024 05/14/2024 , 12/23/2020, 02/04/2019 [place] Preventative Visit/Annual Wellness Visit 10/22/2024 08/29/2023, 05/23/2022 DIABETES ANNUAL FOOT EXAM 01/20/20252023, 12/12/2023, 10/12/2023, Additional history exists DIABETES MICROALBUMIN ANNUAL SCREEN 05/14/2025 05/14/2024, 12/23/2020, 02/04/2019 INFLUENZA VACCINE (#1) 2025 , 10/12/2023, 07/24/2022, Additional history exists DIABETES HBA1C Q 6 MONTHS 10/09/20252024, 05/14/2024, 04/19/2023, Additional history exists DIABETES: A1C (Auto Order) 04/09/202604/09, 05/14/2024, 04/19/2023, Additional history exists LDL CHOLESTEROL ANNUAL 04/09/2026 5, 05/14/2024, 04/19/2023, Additional history exists COLORECTAL SCREENING Discontinued 10/04/2022, 01/13/2019, 01/13/2019, Additional history exists Colorectal Cancer Screening Discontinued KHE eGFR (Auto Order) Completed 04/09/2025 , 02/23/2025, 01/01/2025, Additional history exists FIT-DNA Q 3 years Discontinued FIT/FOBT Q 1 year Discontinued Flex Sig/CT Colonography Q 5 years Discontinued Procedures Procedure Name Priority Date/Time Associated Diagnosis Comments POC GLUCOSE Routine 04/23/2025 4:48 PM CDT Lightheadedness HEMOGLOBIN A1C Routine 04/09/2025 12:07 PM CDT Type 2 diabetes mellitus without complication, without long-term current use of insulin ([facility]) COMPREHENSIVE METABOLIC PANEL Routine 04/09/2025 12:07 PM CDT Type 2 diabetes mellitus without complication, without long-term current use of insulin ([facility]) TSH Routine 04/09/2025 12:07 PM CDT Type 2 diabetes mellitus without complication, without long-term current use of insulin (CMS/HCC) LIPID PANEL Routine 04/09/2025 12:07 PM CDT Type 2 diabetes mellitus without complication, without long-term current use of insulin (CMS/HCC) CBC WITH DIFFERENTIAL Routine 04/09/2025 12:07 PM CDT Type 2 diabetes mellitus without complication, without long-term current use of insulin (CMS/HCC) MRI BRAIN WO CONTRAST Routine 04/01/2025 4:00 PM CDT Worsening headaches Ataxia URINALYSIS W/REFLEX MICROSCOPIC Stat 03/26/2025 11:43 AM CDT POC GLUCOSE Stat 03/26/2025 11:[address] SINUS FACIAL BONES WO CONTRAST Stat 03/26/2025 11:29 AM CDT COMPREHENSIVE METABOLIC PANEL Routine 02/23/2025 10:19 AM CDT MICROALBUMIN/CREATININ E RATIO, RANDOM UR Routine 05/14/2024 4:59 PM CDT Type 2 diabetes mellitus with other ophthalmic complication, without long-term current use of insulin (CMS/HCC) HM DIABETES EYE EXAM Routine 02/27/2022 ENDOSCOPY, COLON, SCREENING 01/13/2019 12:00 AM CDT from Last 3 Months or Most Recently Relevant to Health Maintenance Results * (ABNORMAL) POC GLUCOSE (04/23/2025 4:48 PM CDT) GLUCOSE POC 117(A) 65 - 99 mg/dL [facility] SPECIMEN SOURCE, GLUCOSE POC [facility] INTERNAL KIT QC POC Pass Pass [facility] KIT LOT NUMBER POC [phone] [facility] KIT EXP DATE POC 05/16/25 [facility] Blood, capillary 04/23/2025 4:48 PM CDT us Cornelia Ayala DO POINT OF CARE TESTING Final Result [facility] CLIA# [id number] [address] [place] [address] * CBC WITH DIFFERENTIAL (04/09/2025 12:07 PM CDT) WBC 7.2 3.8 - 10.8 Thousand/u L [facility] RBC 4.53 4.20 - 5.80 Million/uL [facility] HEMOGLOBIN 14.2 13.2 - 17.1 g/dL [facility] HEMATOCRIT 43.7 38.5 - 50.0 % [facility] MCV 96.5 80.0 - 100.0 fL [facility] MCH 31.3 27.0 - 33.0 pg [facility] MCHC 32.5 32.0 - 36.0 g/dL [facility] Comment: For adults, a slight decrease in the calculated MCHC value (in the range of 30 to 32 g/dL) is most likely not clinically significant; however, it should be interpreted with caution in correlation with other red cell parameters and the patient's clinical condition. RDW 13.6 11.0 - 15.0 % [facility] PLATELETS 205 140 - 400 Thousand/u L [facility] MPV 9.5 7.5 - 12.5 fL [facility] NEUTROPHIL ABSOLUTE 5,227 1,500 - 7,800 cells/uL [facility] LYMPHOCYTE ABSOLUTE 1,138 850 - 3,900 cells/uL [facility] MONOCYTE ABSOLUTE 518 200 - 950 cells/uL [facility] EOSINOPHIL ABSOLUTE 266 15 - 500 cells/uL [facility] BASOPHILS ABSOLUTE 50 0 - 200 cells/uL [facility] NEUTROPHIL 72.6 % [facility] LYMPHOCYTES 15.8 % [facility] MONOCYTE 7.2 % [facility] EOSINOPHILS 3.7 % [facility] BASOPHILS 0.7 % [facility] Comment: Test Performed at: [facility] [address] [place] [address] Sona Tyler MD Blood 04/09/2025 12:0 7 PM CDT 04/10/2025 3:07 AM CDT Cornelia L Jamie DO HEMATOLOGY ORDERABLES Final Result Performing Organization Address [facility]/ZIP Co de Phone Number [facility] [phone] [facility] [address] * TSH (04/09/2025 12:07 PM CDT) TSH 1.07 0.40 - 4.50 mIU/L [facility] Comment: Test Performed at: [facility] [address] Sona Tyler MD Blood 04/09/2025 12:0 7 PM CDT 04/10/2025 3:07 AM CDT Cornelia L Jamie DO CHEMISTRY ORDERABLES Final Result Performing Organization Address [facility] Co de Phone Number [facility] [phone] [facility] [address] * (ABNORMAL) HEMOGLOBIN A1C (04/09/2025 12:07 PM CDT) HEMOGLOBIN A1C 6.0(H) <5.7 % [facility] Comment: For someone without known diabetes, a hemoglobin A1c value between 5.7% and 6.4% is consistent with prediabetes and should be confirmed with a follow-up test. For someone with known diabetes, a value <7% indicates that their diabetes is well controlled. A1c targets should be individualized based on duration of diabetes, age, comorbid conditions, and other considerations. This assay result is consistent with an increased risk of diabetes. Currently, no consensus exists regarding use of hemoglobin A1c for diagnosis of diabetes for children. ESTIMATED AVERAGE GLUCOSE (MG/DL) 126 mg/dL [facility] ESTIMATED AVERAGE GLUCOSE (MMOL/L) 7.0 mmol/L [facility] Comment: Test Performed at: [facility] [address] [facility] [place] [address] Sona Tyler MD Blood 04/09/2025 12:0 7 PM CDT 04/10/2025 3:07 AM CDT us Cornelia Ayala DO CHEMISTRY ORDERABLES Final Result [facility] [phone] [facility] [address] [place] [address] * LIPID PANEL (04/09/2025 12:07 PM CDT) CHOLESTEROL 158 <200 mg/dL [facility] HDL 56 > OR = 40 mg/dL [facility] TRIGLYCERIDE 147 <150 mg/dL [facility] LDL CALCULATED 78 mg/dL (calc) [facility] Comment: Reference range: <100 Desirable range <100 mg/dL for primary prevention; <70 mg/dL for patients with CHD or diabetic patients with > or = 2 CHD risk factors. LDL-C is now calculated using the Froylan-Irasema calculation, which is a validated novel method providing better accuracy than the Friedewald equation in the estimation of LDL-C. Froylan PRESCOTT et al. KOBI. 2013;310(19): 6752-4009 (http://education.[employer]/faq/KOD178) CHOL/HDL RATIO 2.8 <5.0 (calc) [facility] NON-HDL CHOLESTEROL 102 <130 mg/dL (calc) [facility] Comment: For patients with diabetes plus 1 major ASCVD risk factor, treating to a non-HDL-C goal of <100 mg/dL (LDL-C of <70 mg/dL) is considered a therapeutic option. Test Performed at: [facility] [address] [address] Sona Tyler MD Blood 04/09/2025 12:0 7 PM CDT 04/10/2025 3:07 AM CDT us Cornelia Ayala DO CHEMISTRY ORDERABLES Final Result [facility] [phone] [facility] [address] [address] * (ABNORMAL) COMPREHENSIVE METABOLIC PANEL (04/09/2025 12:07 PM CDT) Only the most recent of2 resultswithin the time period is included. GLUCOSE 205(H) 65 - 99 mg/dL [facility] Comment: Fasting reference interval For someone without known diabetes, a glucose value >125 mg/dL indicates that they may have diabetes and this should be confirmed with a follow-up test. BUN 8 7 - 25 mg/dL [facility] CREATININE 0.71 0.70 - 1.28 mg/dL [facility] GFR 94 > OR = 60 mL/min/1. 73m2 [facility] BUN/CREAT RATIO SEE NOTE: 6 - 22 (calc) [facility] Comment: Not Reported: BUN and Creatinine are within reference range. SODIUM 134(L) 135 - 146 mmol/L [facility] POTASSIUM 4.2 3.5 - 5.3 mmol/L [facility] CHLORIDE 94(L) 98 - 110 mmol/L [facility] CO2 33(H) 20 - 32 mmol/L [facility] CALCIUM 9.0 8.6 - 10.3 mg/dL [facility] TOTAL PROTEIN 6.0(L) 6.1 - 8.1 g/dL [facility] ALBUMIN 3.8 3.6 - 5.1 g/dL [facility] GLOBULIN 2.2 1.9 - 3.7 g/dL (calc) [facility] ALBUMIN/GLOBULIN RATIO 1.7 1.0 - 2.5 (calc) [facility] BILIRUBIN TOTAL 0.5 0.2 - 1.2 mg/dL [facility] ALKALINE PHOSPHATASE 62 35 - 144 U/L [facility] AST 10 10 - 35 U/L [facility] ALT 5(L) 9 - 46 U/L [facility] Comment: Test Performed at: [facility] [address] [place] [address] Sona Tyler MD Blood 04/09/2025 12:0 7 PM CDT 04/10/2025 3:07 AM CDT us Cornelia Ayala DO CHEMISTRY ORDERABLES Final Result [facility] [phone] [facility] [address] [place] [address] * MRI BRAIN WO CONTRAST (04/01/2025 4:00 PM CDT) Anatomical Region Laterality Modality Head Magnetic Resonan ce 04/01/2025 4:46 PM CDT Impressions 04/01/2025 5:00 PM CDT IMPRESSION: Please see below. Exam: MRI BRAIN WO CONTRAST Date/Time of Exam: 04/01/2025 4:00 PM Reason For Exam: Headache, chronic, new features or increased frequency. Diagnosis: Worsening headaches; Ataxia. Technique: MRI of the brain was performed without the administration of intravenous contrast. Findings: No acute infarction, hemorrhage or extra-axial collection. Mild sequela of small vessel ischemic disease and diffuse parenchymal volume loss. No hydrocephalus. Basal cisterns are patent. No suspicious osseous abnormality. The paranasal sinuses are predominantly clear. Bilateral mastoid effusions. The orbits are intact. IMPRESSION: No acute intracranial abnormality. Mild sequela small vessel ischemic disease. Narrative Procedure Note Ministerio Leiva DO - 04/01/2025 IMPRESSION: Please see below. Exam: MRI BRAIN WO CONTRAST Date/Time of Exam: 04/01/2025 4:00 PM Reason For Exam: Headache, chronic, new features or increased frequency. Diagnosis: Worsening headaches; Ataxia. Technique: MRI of the brain was performed without the administration of intravenous contrast. Findings: No acute infarction, hemorrhage or extra-axial collection. Mild sequela of small vessel ischemic disease and diffuse parenchymal volume loss. No hydrocephalus. Basal cisterns are patent. No suspicious osseous abnormality. The paranasal sinuses are predominantly clear. Bilateral mastoid effusions. The orbits are intact. IMPRESSION: No acute intracranial abnormality. Mild sequela small vessel ischemic disease. us Cornelia Ayala DO MR ORDERABLES Final Resul t * URINALYSIS WITH REFLEX MICROSCOPIC (03/26/2025 11:43 AM CDT) COLOR UA Yellow Pale to Dark Yellow 03/26/2025 12:06 PM [facility] CLARITY UA Clear Clear 03/26/2025 12:06 PM [facility] SPECIFIC GRAVITY UA <=1.005 1.003 - 1.035 03/26/2025 12:06 PM [facility] PH UA 5.5 5.0 - 8.0 03/26/2025 12:06 PM [facility] LEUKOCYTE ESTERASE UA Negative Negative 03/26/2025 12:06 PM [facility] [facility] NITRITE UA Negative Negative 03/26/2025 12:06 PM [facility] PROTEIN UA Negative Negative 03/26/2025 12:06 PM [facility] GLUCOSE UA Negative Negative 03/26/2025 12:06 PM [facility] KETONES UA Negative Negative 03/26/2025 12:06 PM [facility] UROBILINOGEN UA 0.2 <2.0 mg/dL 12:06 PM [facility] BILIRUBIN UA Negative Negative 03/26/2025 12:06 PM [facility] BLOOD UA Negative Negative 03/26/2025 12:06 PM [facility] Urine URINE SPECIMEN OBTAINED BY CLEAN CATCH PROCEDURE / Unknown Collection / Unknown 03/26/2025 11:43 AM CDT 03/26/2025 12:04 PM CDT us Franco Duncan MD URINE ORDERABLES Final Result Performing Organization Address [facility]/ZIP Co de Phone Number [facility] CLIA # [id number] [address] [place] [id number] * (ABNORMAL) POC GLUCOSE (03/26/2025 11:40 AM CDT) Pathologist [facility] GLUCOSE POC 103(H) 74 - 99 mg/dL 03/26/2025 11:40 AM CDT [facility] SPECIMEN SOURCE, GLUCOSE POC Whole Blood 03/26/2025 11:40 AM CDT [facility] Blood, whole 03/26/2025 11:4 0 AM CDT 03/26/2025 11:49 AM CDT us Franco Duncan MD POINT OF CARE TESTING Final Res ult Performing Organization Address [facility] Co de Phone Number [facility] CLIA # [id number] [address] [place] [phone] * CT SINUS FACIAL BONES WO CONTRAST (03/26/2025 11:29 AM CDT) Anatomical Region Laterality Modality Head Computed Tomogra phy 03/26/2025 11:2 9 AM CDT Impressions 03/26/2025 11:59 AM CDT IMPRESSION: Please see below. EXAM: CT SINUS FACIAL BONES WO CONTRAST DATE/TIME OF EXAM: 03/26/2025 11:29 AM REASON FOR STUDY: Sinusitis, chronic or recurrent DIAGNOSIS: See Reason for Exam TECHNIQUE: CT of the sinuses and facial bones was performed without the administration of intravenous contrast. COMPARISON: FINDINGS: Facial Bones: No acute facial bone fracture. Degenerative changes in both temporomandibular joints. Soft Tissues: Within normal limits. Orbits: Within normal limits. Paranasal Sinuses: No significant paranasal sinus mucosal thickening or fluid level. Mild leftward nasal septal deviation. Bilateral fish bullosa. Possible polyp right middle turbinate. Prominent thickening of the nasal turbinate mucosa with polypoid appearance. Mastoid Air Cells: Clear. IMPRESSION: 1. No CT evidence of active sinus disease. 2. Possible polyp right middle turbinate. Prominent thickening of the nasal turbinate mucosa with polypoid appearance. Narrative Procedure Note Shahla Henderson MD - 03/26/2025 IMPRESSION: Please see below. EXAM: CT SINUS FACIAL BONES WO CONTRAST DATE/TIME OF EXAM: 03/26/2025 11:29 AM REASON FOR STUDY: Sinusitis, chronic or recurrent DIAGNOSIS: See Reason for Exam TECHNIQUE: CT of the sinuses and facial bones was performed without the administration of intravenous contrast. COMPARISON: FINDINGS: Facial Bones: No acute facial bone fracture. Degenerative changes in both temporomandibular joints. Soft Tissues: Within normal limits. Orbits: Within normal limits. Paranasal Sinuses: No significant paranasal sinus mucosal thickening or fluid level. Mild leftward nasal septal deviation. Bilateral fish bullosa. Possible polyp right middle turbinate. Prominent thickening of the nasal turbinate mucosa with polypoid appearance. Mastoid Air Cells: Clear. IMPRESSION: 1. No CT evidence of active sinus disease. 2. Possible polyp right middle turbinate. Prominent thickening of the nasal turbinate mucosa with polypoid appearance. Franco Duncan MD CT ORDERABLES Final Result * MICROALBUMIN/CREATININE RATIO, RANDOM UR (05/14/2024 4:59 PM CDT) Creatinine, Urine 34 20 - 320 mg/dL [facility] MICROALBUMIN, URINE 0.3 See Note: mg/dL [facility] Comment: Reference Range: Reference Range Not established MICROALBUMIN/CREAT RATIO, UR 9 <30 mg/g creat [facility] Comment: The ADA defines abnormalities in albumin excretion as follows: Albuminuria Category Result (mg/g creatinine) Normal to Mildly increased <30 Moderately increased 30-299 Severely increased > OR = 300 The ADA recommends that at least two of three specimens collected within a 3-6 month period be abnormal before considering a patient to be within a diagnostic category. Test Performed at: [facility] [address] [id number] Sona Tyler MD Urine URINE SPECIMEN OBTAINED BY CLEAN CATCH PROCEDURE / Unknown 05/14/2024 4:59 PM CDT 05/15/2024 4:22 AM CDT us Cornelia Ayala DO URINE ORDERABLES Final Resu lt [facility] [phone] [facility] [address] [phone] * DIABETES EYE EXAM (02/27/2022) us Abstract Provider HEALTH MAINTENANCE Final Resul t * ENDOSCOPY, COLON, SCREENING (01/13/2019 12:00 AM CDT) us Sgf Scanning GI PROCEDURE ORDERABLES Final Re sult from Last 3 Months or Most Recently Relevant to Health Maintenance Insurance [facility] [employer] [facility] [place] [place] MCR Care Teams Front End Developer Designer Relationship Specialty Start Date End Date Cornelia Ayala DO [address] [place] [address] PCP - General Family Practice 03/05/18
--- OUTSIDE RECORDS SUMMARY | 2025-05-24 09:36 | XMS_ITS | Encounter Summary ---
Author Organization [facility] Address [address] [place] [address] Care Team Providers Care Hunting Guide Name Role Phone Cornelia Ayala DO Primary Care Provider [phone] Encounter Details Date Type Department Care Team (Latest Contact Info) Description 11/03/2003 Outpatient Historical [facility] Emergency Department [address] [place] [phone] David Yee MD NO ADDRESS ON FILE PANIC DISORDER (Primary Dx) Social History Tobacco Use Types Packs/Day Years Used Date Smoking Tobacco: Never Assessed Sex and Gender Information Value Date Recorded Sex Assigned at Not on file Legal Sex Male 6:45 AM ELECTRICIAN MARINE Gender Identity Not on file Sexual Orientation Not on file documented as of this encounter Plan of Treatment Not on file documented as of this encounter Visit Diagnoses Diagnosis Panic disorder without agoraphobia- Primary documented in this encounter Care Teams Hunting Guide Relationship Specialty Start Date End Date Cornelia Ayala DO [address] [place] [phone] PCP - General Family Practice 03/05/18 documented as of this encounter
--- OUTSIDE RECORDS SUMMARY | 2025-05-24 09:36 | XMS_ITS | Encounter Summary ---
Author Organization [facility] Address [address] [place] [address] Care Team Providers Care Sap Basis Administrator Name Role Phone Cornelia Ayala DO Primary Care Provider [phone] Reason for Visit * Reason Onset Date Comments Results 04/10/2025 Encounter Details Date Type Department Care Team (Late st Contact Info) Description 04/10/2025 Results Follow-Up [facility] [place] [address] [place] [address] Cornelia Ayala, DO [address] [place] [address] CBC WITH DIFFERENTIAL, LIPID PANEL, TSH, Additional followed-up results: 2 Social History Tobacco Use Types Packs/Day Years Used Date Smoking Tobacco: Every Day Cigarettes 1 69.6 Started: 1954 Passive Smoke Exposure: Past Smokeless Tobacco: Never Alcohol Use Standard Drinks/Week Comments No 0 (1 standard drink = 0.6 oz pur e alcohol) Sex and Gender Information Value Date Recorded Sex Assigned at Not on file Legal Sex Male 3:32 PM MEDICAL BILL PROCESSOR Gender Identity Not on file Sexual Orientation Not on file documented as of this encounter Miscellaneous Notes * Telephone Encounter - Socorro Velasquez LPN - 04/13/2025 2:42 PM CDT 04/13/2025 2:42 PM Called and notified patient of results. Voiced understanding. Pt said he was told to stop taking his Januvia and has not been taking this for about a month. Pt said Dr. Ayala wrote on his bottle athis last visit to stop taking this medication. Socorro LESTER * Telephone Encounter - Socorro Velasquez LPN - 04/10/2025 1:47 PM CDT 04/10/2025 1:47 PM No answer. Left voice mail/message that patient/caregiver can return our call. If patient/caregivercalls back, contact center please inform caller to expect a return call from the clinic. Socorro LESTER * Telephone Encounter - Socorro Velasquez LPN - 04/10/2025 1:47 PM CDT ----- Message from Dr. Cornelia Ayala sent at 04/10/2025 1:36 PM CDT ----- Tell gorge his labs looked good and his blood sugar readings are better than I thought they would be. Tell him to keep trying to take care of himself and I am seeing him back in a month. documented in this encounter Plan of Treatment Upcoming Encounters Date Type Department Care Team (Late st Contact Info) Description 06/25/2025 10:40 AM CDT Office Visit [facility] [address] [place] [phone] Cornelia Ayala, DO [address] [facility] [place] [phone] 10/08/2025 10:40 AM MEDICAL BILL PROCESSOR Office Visit [facility] [address] [place] [facility] [facility] [place] [phone] Cornelia Ayala, DO [address] [place] [phone] documented as of this encounter Visit Diagnoses Not on filedocumented in this encounter Additional Health Concerns Assessment Noted Time PHQ-9 Depression Total Score: 1 12/15/19 25 1:28 PM MEDICAL BILL PROCESSOR documented as of this encounter Care Teams Sap Basis Administrator Relationship Specialty Start Date End Date Cornelia Ayala DO [address] [place] [address] PCP - General Family Practice 03/05/18 documented as of this encounter
--- OUTSIDE RECORDS SUMMARY | 2025-05-24 09:36 | XMS_ITS | Encounter Summary ---
Author Organization [facility] Address [address] [place] [address] Care Team Providers Care Mining Machinery Assembler Name Role Phone Cornelia Ayala DO Primary Care Provider [phone] Reason for Visit * Reason Comments Medication Assistance Encounter Details Date Type Department Care Team (Late st Contact Info) Description 05/19/2025 Telephone [facility] [place] [address] [place] [address] Cornelia Ayala DO [address] [place] [address] Medication Assistance Social History Tobacco Use Types Packs/Day Years Used Date Smoking Tobacco: Every Day Cigarettes 1 69.6 Started: 1954 Passive Smoke Exposure: Past Smokeless Tobacco: Never Alcohol Use Standard Drinks/Week Comments No 0 (1 standard drink = 0.6 oz pur e alcohol) Sex and Gender Information Value Date Recorded Sex Assigned at Not on file Legal Sex Male 3:32 PM PODIATRIST ORTHOPEDIC Gender Identity Not on file Sexual Orientation Not on file documented as of this encounter Miscellaneous Notes * Telephone Encounter - Cornelia Ayala DO - 05/19/2025 1:59 PM CDT I told him I was taking over his pain meds so I sent in a refill. * Telephone Encounter - Socorro Velasquez LPN - 05/19/2025 11:34 AM CDT 11:34 AM 05/19/2025 Date of last visit addressing condition(s) being treated: 04/23/25 LFD 04/21/[address] Moore Date of next visit in this department: 06/25/2025 Correct Pharmacy: Yes Recent Visits Date Type Provider Dept 04/23/25 Office Visit Cornelia Ayala, DO [facility] [place] [place] 04/09/25 Office Visit Cornelia Ayala, DO [facility] [place] [place] 02/04/25 Office Visit Cornelia Ayala, DO [facility] [place] [place] 12/15/24 Office Visit January, [facility] [place] 10/08/24 Office Visit January, [facility] 08/20/24 Office Visit Cornelia Ayala, DO [facility] [place] [place] 05/14/24 Office Visit Cornelia Ayala, [facility] [place] Showing recent visits within past 400 days with a meds authorizing provider and meeting all other requirements Future Appointments Date Type Provider Dept 06/25/25 Appointment [facility], DO [facility] 10/08/25 Appointment Cornelia Ayala, [facility] [place] Showing future appointments within next 400 days with a meds authorizing provider and meeting all other requirements Check and review of the [place] PDMP performed on 05/19/2025 at 11:36 AM.. No suspicious activity found. Socorro LESTER * Telephone Encounter - Adina Silver - 05/19/2025 11:16 AM CDT Copied from [facility] #[id number]. Topic: Medication Request >> May 19, 2025 11:15 AM Adina Reyes wrote: Caller Name: Patient Callback Number: [phone] Medication (Ask patient/caregiver to spell if possible): HYDROcodone- acetaminophen (NORCO) 10-325 mg Tablet Note: All medication prescriptions can be requested using one CRM Caller is requesting: Medication Question from Patient (not involving new prescription or refill) Preferred Pharmacy: [id number] - [place], [place] - [address] [facility] [address] [facility] [address] Call Notes: Caller has question about if the provider will still be doing this medication for patient Is there an encounter open? No documented in this encounter Plan of Treatment Upcoming Encounters Date Type Department Care Team (Late st Contact Info) Description 06/25/2025 10:40 AM CDT Office Visit [facility] [address] [place] [phone] Cornelia Ayala, [address] [place] [phone] 10/08/2025 10:40 AM PODIATRIST ORTHOPEDIC Office Visit 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
--- OUTSIDE RECORDS SUMMARY | 2025-05-24 09:36 | XMS_ITS | Clinical Summary ---
Author Organization [facility] Address [address] [facility] [address] [place] [address] Phone Care Team Providers Care Observer Helper Name Role Phone JamieCornelia interiano Primary Care Provider Allergies Active Allergy Reactions Criticality Noted Date Comments Buspirone Itching Low 07/01/2019 Medications aspirin (ECOTRIN EC) 81 mg Tablet, Delayed Release (E.C.) Take 81 mg by mouth daily. Active omeprazole (PriLOSEC) 20 mg Capsule, Delayed Release(E.C.) Take 1 Capsule (20 mg) by mouth daily. 90 Capsule 3 05/05/20 20 Active Januvia 50 mg TabletIndications: Type 2 diabetes mellitus with other ophthalmic complication, without long-term current use of insulin ([facility]) TAKE 1 TABLET BY MOUTH DAILY. 90 Tablet 3 08/28/20 20 Active ipratropium-albute roL (DUONEB) 0.5 mg-3 mg(2.5 mg base)/3 mL Solution for NebulizationIndica tions:Chronic obstructive pulmonary disease with acute exacerbation ([facility]),Tobacco use INHALE THE CONTENTS OF 1 VIAL BY NEBULIZER EVERY 4 HOURS NEEDED FOR SHORTNESS OF BREATH. 180 mL 5 09/20/20 20 Active oxyCODONE-acetamin ophen (PERCOCET) 10-325 mg Tablet 09/23/20 20 Active gabapentin (NEURONTIN) 100 mg capsuleIndications :Chronic tension-type headache, not intractable Take 1 Capsule (100 mg) by mouth 3 times daily. 90 Capsule 1 10/19/20 20 Active Additional Information Patient taking differently:100 mg OralTWO TIMES DAILY, Reported on 11/18/2020 oxygen home deliveryIndication s:Chronic respiratory failure with hypoxia and hypercapnia ([facility]/HCC),Chronic obstructive pulmonary disease, unspecified COPD type ([facility]) Home Oxygen Concentrator yes at 2 L/M Rest, 2 L/M Activity, 2 L/M Sleep, Delivery Device: Nasal Cannula Portability: yes, 2 L/M Rest, 2 L/M Activity, May provide device best for patient needs(E system,home fill, conserving device) Length of Need: 99 months 1 Each 10/19/20 20 Active HYDROcodone-acetam inophen (NORCO) 10-325 mg Tablet Take 10-325 Tablets by mouth daily. 10/25/19 21 Active furosemide (Lasix) 20 mg tabletIndications: Edema, unspecified type Take 1 Tablet (20 mg) by mouth 1 time daily as needed for Other (See Comment) (swelling). 90 Tablet 4 12/24/19 21 Active brexpiprazole (Rexulti) 1 mg TabletIndications: Moderate major depression ([facility]) Take 1 Tablet (1 mg) by mouth daily. 90 Tablet 3 12/24/19 21 Active mirtazapine (REMERON) 15 mg tabletIndications: Primary insomnia Take 1 Tablet (15 mg) by mouth daily at bedtime. 30 Tablet 6 01/05/20 21 Active glipiZIDE (GLUCOTROL) 5 mg tabletIndications: Type 2 diabetes mellitus with other ophthalmic complication, without long-term current use of insulin ([facility]) TAKE 1 TABLET BY MOUTH 2 TIMES DAILY WITH MEALS. 180 Tablet 3 02/15/20 21 Active pravastatin (PRAVACHOL) 20 mg tabletIndications: Mixed hyperlipidemia TAKE 1 TABLET BY MOUTH DAILY AT BEDTIME. 90 Tablet 4 02/29/20 21 Active Trelegy Ellipta 100-62.5-25 mcg Disk with Device INHALE BY MOUTH ONCE DAILY 60 Each 02/29/20 21 Active Combivent Respimat 20-100 mcg/actuation Mist INHALE 1 PUFF BY MOUTH EVERY 6 HOURS. 4 Gram 4 04/06/20 21 Active lisinopriL (PRINIVIL) 5 mg tablet Take 1 Tablet (5 mg) by mouth daily. 90 Tablet 3 04/19/20 21 Active Active Problems Problem Noted Date Diagnosed Date Primary insomnia 04/20/2021 Chronic respiratory failure with hypoxia and hyp ercapnia 04/20/2021 Atherosclerosis of [place] co ronary artery of [place] heart with stable angina pectoris 04/20/2021 History of [place] (myocardial infarction) 04/20/2021 Major depressive disorder, recurrent, in full re mission 11/10/2019 Chronic obstructive pulmonary disease, unspecifi ed 03/09/2019 Type 2 diabetes mellitus wit h hyperglycemia, without long-term current use of insulin 03/09/2019 Tobacco use 09/01/2016 Mixed hyperlipidemia Essential hypertension Chronic neck pain Chronic back pain Resolved Problems Problem Noted Date Diagnosed Date Resolved Date Opioid dependence with withdrawal 11/10/2019 04/20/2021 Family History Medical History Relation Name Comments No Known Problems Father No Known Problems Mother Relation Name Status Comments Father Mother Social History Tobacco Use Types Packs/Day Years Used Date Smoking Tobacco: Every Day Cigarettes Smokeless Tobacco: Never Tobacco Cessation:Ready to Q uit: No; Counseling Given: Yes Alcohol Use Standard Drinks/Week Comments No 0 (1 standard drink = 0.6 oz pur e alcohol) Sex and Gender Information Value Date Recorded Sex Assigned at Not on file Legal Sex Male 6:45 AM DISK RECOATER Gender Identity Not on file Sexual Orientation Not on file Last Filed Vital Signs Vital Sign Reading Time Taken Comments Blood Pressure 135/85 04/14/2021 4:54 PM CDT Pulse 96 04/14/2021 4:30 PM CDT Temperature 36.6 C (97.9 F) 04/14/2021 4:30 PM CDT Respiratory Rate 24 04/14/2021 4:30 PM CDT Oxygen Saturation 91% 04/14/2021 4:30 PM CDT Inhaled Oxygen Concentration - - Weight 97.5 kg (215 lb) 04/14/2021 4:30 PM CDT Height 180.3 cm (5' 11 ) 04/14/2021 4:30 PM CDT Body Mass Index 29.99 04/14/2021 4:30 PM CDT Plan of Treatment Health Maintenance Due Date Last Done Comments DIABETES ANNUAL FOOT EXAM 1964 DIABETES ANNUAL RETINAL EXAM 1964 DTAP/TDAP/TD VACCINES (1 - Tdap) 1965 PNEUMOCOCCAL VACCINE 50+ YEA RS (1 of 2 - PCV) 1965 ZOSTER VACCINE (1 of 2) 1996 DIABETES HBA1C Q 6 MONTHS 03/29/20212019, 05/05/2020, 02/04/2019, Additional history exists LDL CHOLESTEROL ANNUAL 05/05/2021 0, 07/01/2019, 02/04/2019, Additional history exists RSV VACCINE (60+ or ) (1 - 1-dose 75+ series) 2021 Traditional Medicare (O) A nnual Wellness Visit 09/08/2021 09/07/2020, 08/25/2019 DIABETES MICROALBUMIN ANNUAL SCREEN 12/23/2021 12/23/2020, 02/04/2019 INFLUENZA VACCINE (#1) 2025 08/11/2020, 2018 COLORECTAL SCREENING Discontinued 01/13/2019, 01/13/2019, 01/13/2019 Colorectal Cancer Screening Discontinued FIT-DNA Q 3 years Discontinued FIT/FOBT Q 1 year Discontinued Flex Sig/CT Colonography Q 5 years Discontinued Procedures Procedure Name Priority Date/Time Associated Diagnosis Comments MICROALBUMIN/CREATI NINE RATIO, RANDOM UR Routine 12/23/2020 10:39 AM DISK RECOATER Type 2 diabetes mellitus with hyperglycemia, without long-term current use of insulin ([facility]) HEMOGLOBIN A1C Routine 09/28/2020 11:00 AM DISK RECOATER Type 2 diabetes mellitus with hyperglycemia, without long-term current use of insulin ([facility]) LIPID PANEL Routine 05/05/2020 11:38 AM CDT Atherosclerosis of [place] coronary artery of [place] heart with stable angina pectoris History of [place] (myocardial infarction) Mixed hyperlipidemia ENDOSCOPY, COLON, SCREENING Routine 01/13/2019 from Last 3 Months or Most Recently Relevant to Health Maintenance Results * (ABNORMAL) MICROALBUMIN/CREATININE RATIO, RANDOM UR (12/23/2020 10:39 AM DISK RECOATER) MICROALBUMIN, URINE 1.6 No Reference Range mg/dL 12/24/2020 9:22 AM DISK RECOATER [facility] CREATININE, URINE 22.9(L) 40.0 - 278.0 mg/dL 12/24/2020 9:22 AM DISK RECOATER [facility] Comment:Reference Range vari es with fluid intake and diet. MICROALBUMIN/ CREAT RATIO, UR 69.9(H) <17.0 mg/g 12/24/2020 9:22 AM [facility] Urine URINE SPECIMEN OBTAINED BY CLEAN CATCH PROCEDURE / Unknown Collection / Unknown 12/23/2020 10:39 AM DISK RECOATER 12/23/2020 8:30 PM DISK RECOATER Suzy [facility] - 12/24/2020 9:22 AM DISK RECOATER Condition Microalbumin/Creat ratio Normal Males <17 Normal Females <25 Microalbuminuria Males 17-299 Microalbuminuria Females 25-299 Overt proteinuria >=300 Shari Gaines CLEAN ROOM OPERATOR URINE ORDERABLES Final R esult [facility] CLIA# [id number] [address] [place] [address] * (ABNORMAL) HEMOGLOBIN A1C (09/28/2020 11:00 AM DISK RECOATER) HEMOGLOBIN A1C 6.0(H) See Comment % 09/28/2020 8:45 PM [facility] EST. AVG GLUCOSE, A1C 126 mg/dL 09/28/2020 8:45 PM [facility] Blood Venipuncture / Unknown 09/28/2020 11:00 AM DISK RECOATER 09/28/2020 8:08 PM DISK RECOATER Narrative [facility] - 09/28/2020 8:45 PM DISK RECOATER HGB A1C INTERPRETATION NORMAL: <5.7% PRE-DIABETES: 5.7 - 6.4% DIABETES: 6.5% OR GREATER Falsely low A1C measurements can occur when: 1. Anemia and/or hemolytic anemia is present. 2. Hemoglobin variants present. 3. Renal failure. 4. Transfusion of blood product in the last 120 days. We recommend ordering a fructosamine test([id number]) to more accurately assess glycemic status if any of the above conditions are present. Selena Angel CLEAN ROOM OPERATOR CHEMISTRY ORDERABLES Final Re sult [facility] CLIA# [id number] [address] [place] [address] * LIPID PANEL (05/05/2020 11:38 AM CDT) [facility] Signature CHOLESTEROL 165 <200 mg/dL 05/05/2020 8:39 PM CDT [facility] TRIGLYCERIDE 137 <150 mg/dL 05/05/2020 8:39 PM CDT [facility] HDL 52 40 - 59 mg/dL 05/05/2020 8:39 PM CDT [facility] LDL CALCULATED 86 <100 mg/dL 05/05/2020 8:39 PM CDT [facility] NON-HDL CHOLESTEROL 113 <130 mg/dL 05/05/2020 8:39 PM CDT [facility] Blood Venipuncture / Unknown 05/05/2020 11:38 AM CDT 05/05/2020 7:43 PM CDT Narrative [facility] - 05/05/2020 8:39 PM CDT TOTAL CHOLESTEROL mg/dL Desirable <200 Borderline high 200-239 High >=240 TRIGLYCERIDES mg/dL Normal <150 Borderline high 150-199 High 200-499 Very high >=500 HDL CHOLESTEROL mg/dL Low <40 Normal 40-59 Desirable >=60 NON HDL CHOLESTEROL mg/dL Optimal <130 Near Optimal 130-159 Borderline High 160-189 Very High >=190 CALCULATED LDL mg/dL LDL <70, OPTIMAL if have Atherosclerotic cardiovascular disease (ASCVD) or intermediate or higher (>7.5%) 10 year risk of ASCVD including most adults with diabetes. LDL <100, Optimal in adult patients with low (<7.5%) 10 year ASCVD risk LDL 100-160, Suboptimal LDL >160, High LDL >190, Very high ATPIII Guidelines Reference Ranges for Lipid Panels (NCEP/AMA) . Shari Gaines CLEAN ROOM OPERATOR CHEMISTRY ORDERABLES Fin al Result [facility]# [id number] [address] [place] [address] * ENDOSCOPY, COLON, SCREENING (01/13/2019) us Abstract Spg Provider GI PROCEDURE ORDERABLES Fi nal Result from Last 3 Months or Most Recently Relevant to Health Maintenance Insurance MEDICARE PART A AND B Advance Directives For more information, please contact: [phone] * Full Code (Latest Code Status on File) Date Activated Date Inactivated Comments 08/05/2019 7:54 AM 08/07/2019 8:12 PM Care Teams Observer Helper Relationship Specialty Start Date End Date Cornelia Ayala DO [address] [place] [address] PCP - General Family Practice 03/05/18
--- OUTSIDE RECORDS SUMMARY | 2025-05-24 09:36 | XMS_ITS | Encounter Summary ---
Author Organization [facility] Address [address] [place] [address] Care Team Providers Care Heat Engineering Teacher Name Role Phone Cornelia Ayala DO Primary Care Provider [phone] Encounter Details Date Type Department Care Team (Late st Contact Info) Description 04/01/2025 Results Follow-Up [facility] [place] [address] [place] [address] Cornelia Ayala, DO [address] [place] [address] MRI BRAIN WO CONTRAST Social History Tobacco Use Types Packs/Day Years Used Date Smoking Tobacco: Every Day Cigarettes 1 69.6 Started: 1954 Passive Smoke Exposure: Past Smokeless Tobacco: Never Alcohol Use Standard Drinks/Week Comments No 0 (1 standard drink = 0.6 oz pur e alcohol) Sex and Gender Information Value Date Recorded Sex Assigned at Not on file Legal Sex Male 3:32 PM BRANCH DIRECTOR Gender Identity Not on file Sexual Orientation Not on file documented as of this encounter Miscellaneous Notes * Telephone Encounter - Socorro Velasquez LPN - 04/03/2025 1:06 PM CDT 04/03/2025 1:06 PM Called and notified patient of results and advised him of message from provider. Voiced understanding. Pt says he is doing better and his headaches are not as bad, ear problems are better. Both started getting better since starting the Amoxicillin. Pt says they stopped some of his medications whilein the ER and pt is not sure what he is suppose to be taking now and not to restart them until he finishes his antibiotics. I advised pt to bring all of his medications to his follow up appointment and pt verbalized understanding. Socorro LESTER documented in this encounter Plan of Treatment Upcoming Encounters Date Type Department Care Team (Late st Contact Info) Description 06/25/2025 10:40 AM CDT Office Visit [facility] [address] [place] [address] Cornelia Ayala, DO [address] [place] [address] 10/08/2025 10:40 AM BRANCH DIRECTOR Office Visit [facility] [address] [place] [address] Cornelia Ayala DO [address] [place] [address] documented as of this encounter Visit Diagnoses Not on filedocumented in this encounter Additional Health Concerns Assessment Noted Time PHQ-9 Depression Total Score: 1 12/15/19 25 1:28 PM BRANCH DIRECTOR documented as of this encounter Care Teams Heat Engineering Teacher Relationship Specialty Start Date End Date Cornelia Ayala DO [address] [place] [address] PCP - General Family Practice 03/05/18 documented as of this encounter
--- OUTSIDE RECORDS SUMMARY | 2025-05-24 09:36 | XMS_ITS | Encounter Summary ---
Author Organization [facility] Address [address] [place] [address] Care Team Providers Care Cloth Shearing Supervisor Name Role Phone Cornelia Ayala DO Primary Care Provider [phone] Reason for Visit * Reason Comments Medication Refill Encounter Details Date Type Department Care Team (Late st Contact Info) Description 05/22/2025 Refill [facility] [place] [address] [place] [phone] Cornelia Ayala DO [address] [place] [phone] Social History Tobacco Use Types Packs/Day Years Used Date Smoking Tobacco: Every Day Cigarettes 1 69.6 Started: 1954 Passive Smoke Exposure: Past Smokeless Tobacco: Never Alcohol Use Standard Drinks/Week Comments No 0 (1 standard drink = 0.6 oz pur e alcohol) Sex and Gender Information Value Date Recorded Sex Assigned at Not on file Legal Sex Male 3:32 PM DIRECT CARE COUNSELOR Gender Identity Not on file Sexual Orientation Not on file documented as of this encounter Miscellaneous Notes * Telephone Encounter - Socorro Velasquez LPN - 05/22/2025 11:55 AM CDT 05/22/2025 11:55 AM I spoke with pharmacy and they will have Trelegy back in stock on Sunday. Pharmacy also stated pt is asking for refill 7 days early. I called pt and let him know this would be available. Pt says he has been out of trelegy for 3 days, pt says it is possible that he has been using it more than he is suppose to. Pt will use his albuterol and combivent. Pt was advised the importance of taking medications as prescribed. Pt verbalized understanding. Socorro LESTER * Telephone Encounter - Janeth Li - 05/22/2025 11:48 AM CDT Copied from [facility] #[id number]. Topic: Medication Request >> May 22, 2025 11:46 AM Janeth Fan wrote: Caller Name: Jeremías Edouard Callback Number: Telephone Information: Medication (Ask patient/caregiver to spell if possible): [id number] (Trelegy Ellipta) 100-62.5-25 mcg Disk with Device [[id number]] Note: All medication prescriptions can be requested using one [facility] Preferred Pharmacy: [id number] - [place], [place] - [address] [facility] [address] [address] Call Notes:Patient says he has been out of this medication for 3 days. He was told that the pharmacy is out. He is asking if it's back in stock and can he get a refill. Did caller contact the correct clinic for prescribing provider? Yes Ask caller if the refill is for a controlled medication. Is this for a controlled Medication? Unsure Is there an encounter open? No documented in this encounter Plan of Treatment Upcoming Encounters Date Type Department Care Team (Late st Contact Info) Description 06/25/2025 10:40 AM CDT Office Visit [facility] [address] [place] [facility] [place] [address] Cornelia Ayala DO [address] [facility] [place] [phone] 10/08/2025 10:40 AM DIRECT CARE COUNSELOR Office Visit [facility] [address] [place] [phone] Cornelia Ayala DO [address] [place] [address] documented as of this encounter Visit Diagnoses Not on filedocumented in this encounter Additional Health Concerns Assessment Noted Time PHQ-9 Depression Total Score: 1 12/15/19 25 1:28 PM DIRECT CARE COUNSELOR documented as of this encounter Care Teams Cloth Shearing Supervisor Relationship Specialty Start Date End Date Cornelia Ayala DO [address] [place] [phone] PCP - General Family Practice 03/05/18 documented as of this encounter
--- OUTSIDE RECORDS SUMMARY | 2025-05-24 09:36 | XMS_ITS | Encounter Summary ---
Author Organization [facility] Address [address] [place] [address] Care Team Providers Care Gore Seamer Name Role Phone Cornelia Ayala DO Primary Care Provider [phone] Encounter Details Date Type Department Care Team (Latest Contact Info) Description 08/28/2005 Outpatient Historical [facility] [address] [place] [address] Cristian Fernandez MD [address] [place] [phone] NEURALGIA/NEURITIS NOS (Primary Dx) Social History Tobacco Use Types Packs/Day Years Used Date Smoking Tobacco: Never Assessed Sex and Gender Information Value Date Recorded Sex Assigned at Not on file Legal Sex Male 6:45 AM PHOTOGRAPHIC PRINTER Gender Identity Not on file Sexual Orientation Not on file documented as of this encounter Plan of Treatment Not on file documented as of this encounter Visit Diagnoses Diagnosis Neuralgia, neuritis, and radiculitis, unspecified- Primary documented in this encounter Care Teams Gore Seamer Relationship Specialty Start Date End Date Cornelia Ayala DO [address] [place] [address] PCP - General Family Practice 03/05/18 documented as of this encounter
--- OUTSIDE RECORDS SUMMARY | 2025-05-24 09:36 | XMS_ITS | Patient Health Record ---
Author Organization [facility] Address [address] [place], [place] [id number] Care Team Providers Care Repairer Typewriter Name Role Phone Cornelia Ayala DO Primary Care Provider Elsy Moore MD, Guilherme Unavailable [phone] Dakota Ash PA-C Unavailable Unavailable Allergies No Known Allergies Results Component Value Reference Range Notes Urine tox screen / MS if ind icated Reviewed date:11/26/2024 02:36:04 PM Interpretation:Consistent Performing Lab: Notes/Report: Consistent Reason For Referral No Information Medications Medication SIG (Take, Route, Frequency, Duration) Notes Start Date End Date Status pravastatin 20 mg 1 tab orally once a day (at bedtime); Duration: 30 day(s) Active Trelegy Ellipta 100 mcg-62.5 mcg-25 mcg/inh 1 puff inhaled once a day Active doxycycline hyclate 100 mg ; Duration: 10 Days Active predniSONE 20 mg 1 tab(s) orally once a day; Duration: 7 day(s) 09/11/2023 Active Probiotic Formula Ac tive Aspir 81 81 mg 1 tab orally once a day Active Bydureon BCise 2 mg/0.85 mL as directed subcutaneously once a week; Duration: 30 day(s) Active acetaminophen-hydroco done 325 mg-10 mg 1-2 tabs orally Q4-6H prn pain (max 8/day; hold within 4H of planned sleep); Duration: 28 days Do not fill prior to 04/21/25. ICD-10: G89.29 02/24/2025 Active ALPRAZolam 0.25 mg TAKE ONE TABLET BY MOUTH nightly NEEDED FOR ANXIETY.; Duration: 30 Days F411,Unavailab le Active Advair Diskus 500 mcg-50 mcg 1 puff inhaled 2 times a day Active Fioricet 300 mg-50 mg-40 mg 1 cap orally every 4 hours Active Ciprodex 0.3%-0.1% in each affected ear Active Combivent Active Januvia 50 mg 1 tab orally once a day; Duration: 30 day(s) Active lisinopril 5 mg 1 tab orally once a day Active furosemide 20 mg 1 tab orally once a day Active glipiZIDE 5 mg 1 tab orally twice a day Active mirtazapine 15 mg 1 tab orally once a day (at bedtime) Active montelukast 10 mg 1 tab orally once a day Active acetaminophen-hydroco done 325 mg-10 mg 1-2 tabs orally Q4-6H prn pain (max 8/day; hold within 4H of planned sleep); Duration: 28 days Do not fill prior to 03/24/25. ICD-10: G89.29 02/24/2025 Active magnesium citrate 1.745 g/30 mL 300 mL orally once; Duration: 1 dose(s) Active acetaminophen-hydroco done 325 mg-10 mg 1-2 tabs orally Q4-6H prn pain (max 8/day; hold within 4H of planned sleep); Duration: 28 days ICD-10: G89.29 02/24/2025 Active MiraLax - as directed orally o nce a day Active multivitamin 1 cap orally once a day; Duration: 30 day(s) Active omeprazole 20 mg 1 cap orally once a day Active Social History Tobacco Use: Social History Observation Description Date Details (start date - stop date) Current Smoker NA - NA Tobacco use: Question Answer Notes : current smoker Are you interested in quitting? Thinking about q uitting How many cigarettes a day do you smoke? 31 or mo re How often do you smoke cigarettes? every day How soon after you wake up d o you smoke your first cigarette? 6-30 min When did you start smoking? 1954 AUDIT-C (Standard) Question Answer Notes Did you have a drink containing alcohol in the p ast year? No Points 0 Interpretation Negative Problems Problem Type SNOMED Code ICD Code Onset Dates Problem Status W/U Status Risk Notes Problem Spasm (96475232) Muscle spasm (728.85) Active confirmed Problem Low back pain (075456144) Low back pain (724.2) Active confirmed Problem Displacement of lumbar intervertebral disc without myelopathy (44772045) Lumbar (w/out myelopathy) intervertebral disc disorder (722.10) Active confirmed Problem Long-term drug therapy (415281884) LONG-TERM USE MEDS NEC (V58.69) Active confirmed R/O substance abuse Problem Lumbosacral spondylosis without myelopathy (75775297) Lumbosacral spondylosis without myelopathy (721.3) Active confirmed Problem Neck pain (61081451) Neck pain (723.1) Active confirmed Problem Low back pain (380743049) Low back pain (M54.5) Active confirmed Problem Displacement of lumbar intervertebral disc without myelopathy (60083781) Other intervertebral disc displacement, lumbar region (M51.26) Active confirmed Problem Lumbosacral spondylosis without myelopathy (22379759) Spondylosis without myelopathy or radiculopathy, lumbar region (M47.816) Active confirmed Problem High risk drug monitoring status (747508748) [facility] (current) use of opiate analgesic (Z79.891) Active confirmed Problem Anxiety disorder (844791111) Other specified anxiety disorders (F41.8) Active confirmed Problem Sleep disorder (06318041) Other sleep disorders (G47.8) Active confirmed Problem Chronic pain (21208859) Other chronic pain (G89.29) Active confirmed Problem Chronic obstructive pulmonary disease (18536214) Chronic obstructive pulmonary disease, unspecified (J44.9) Active confirmed Problem Acquired spondylolisthesis (355285025) Spondylolisthesi s, cervical region (M43.12) Active confirmed Problem Cervical spondylosis without myelopathy (466157007) Spondylosis without myelopathy or radiculopathy, cervical region (M47.812) Active confirmed Problem Spinal stenosis in cervical region (32511064) Spinal stenosis, cervical region (M48.02) Active confirmed Problem Cervical radiculopathy (14747048) Cervical disc disorder with radiculopathy, unspecified cervical region (M50.10) Active confirmed Problem Cervicalgia (25513446) Cervicalgia (M54.2) Active confirmed Problem Spasm (73734468) Other muscle spasm (M62.838) Active confirmed Problem Drug-induced constipation (43536764) Drug induced constipation (K59.03) Active confirmed Problem 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) Vertebrogenic low back pain (M54.51) Active confirmed Vital Signs Temperature 97.1 degrees Fahrenheit 02/24/2025 Tali ent reported weight due to fall risk Blood pressure diastolic 71 mm Hg 02/24/2025 Pat ient reported weight due to fall risk Oximetry 98 % 12/23/2024 Patient reporte d weight due to fall risk Height 70 in 02/24/2025 Patient reporte d weight due to fall risk Blood pressure systolic 112 mm Hg 02/24/2025 Tali ent reported weight due to fall risk Weight 189 lbs 02/24/2025 Patient reporte d weight due to fall risk BMI 27.12 kg/m2 02/24/2025 Patient reporte d weight due to fall risk Encounters Encounter Location Date Provider Diagnosis [facility] [address] [employer] [place], [place] [id number] 09/10/2024 Guilherme Moore Cervicalgia M54.2 ; Other chronic pain G89.29 and Other sleep disorders G47.[address] [facility] [address] [id number] 11/26/2024 Guilherme Moore Cervicalgia M54.2 ; Other chronic pain G89.29 ; Other sleep disorders G47.8 and [facility]FP (current) use of opiate analgesic Z79.891 [facility] [address] [id number] 12/23/2024 Guilherme Moore Cervicalgia M54.2 ; Other chronic pain G89.29 and Other sleep disorders G47.[address] [facility] Treatment [address] [id number] 02/24/2025 Guilherme Moore Cervicalgia M54.2 ; Other chronic pain G89.29 and Other sleep disorders G47.[address] [facility] Treatment [address] [id number] 06/25/2024 Guilherme Moore Assessments Encounter Date Diagnosis (ICD Code) Assessment Notes Treatment Notes Treatment Clinical Notes Section Notes 12/23/2024 Other chronic pain (ICD-10 - G89.29) Patient reports that his current pain medication does not help and causes side effects. He is requesting a change back to his prior hydrocodone which was of some benefit without side effects. Plan to continue oral opioid medication management with transition back to hydrocodone. 12/23/2024 Cervicalgia (ICD-10 - M54.2) Chronic axial cervical spine pain. Patient stated that he has a history of neurosurgical evaluations, however, surgery has never been offered due to surgeons' fear of complications such as paralysis . Patient does not want an updated imaging study or referral for possible minimally invasive interventional spine treatment. 02/24/2025 Cervicalgia (ICD-10 - M54.2) Chronic axial cervical spine pain. 11/26/2024 Cervicalgia (ICD-10 - M54.2) Chronic axial cervical spine pain. 09/10/2024 Other chronic pain (ICD-10 - G89.29) Patient reports that taking his pain medication allows him to get around his house with greater ease. Plan to continue oral opioid medication management. 09/10/2024 Cervicalgia (ICD-10 - M54.2) Chronic axial cervical spine pain. 09/10/2024 Other sleep disorders (ICD-10 - G47.8) Plan to continue to restrict opioid use in relation to sleep for safety concerns. 11/26/2024 Other chronic pain (ICD-10 - G89.29) Patient reports that taking his current pain medication no longer adequately manages his pain. He is requesting a change. Plan to continue oral opioid medication management with transition to Percocet. Patient has transportation issues so would like to trial a full month rather that a 2 week supply. 12/23/2024 Other sleep disorders (ICD-10 - G47.8) Plan to continue to restrict opioid use in relation to sleep for safety concerns. 02/24/2025 Other chronic pain (ICD-10 - G89.29) Patient reports that taking his pain medication allows him to get around in his wheelchair with greater ease. Plan to continue oral opioid medication at today's visit. 02/24/2025 Other sleep disorders (ICD-10 - G47.8) Plan to continue to restrict opioid use in relation to sleep for safety concerns. 11/26/2024 Other sleep disorders (ICD-10 - G47.8) Plan to continue to restrict opioid use in relation to sleep for safety concerns. 11/26/2024 [facility]FP (current) use of opiate analgesic (ICD-10 - Z79.891) 2022 opioid (OUD) risk tool score = 0. This places the patient in the low risk category. Plan urine toxicology screen today to monitor for presence of any unprescribed or illicit controlled substance(s), as well as prescribed hydrocodone. 09/10/2024 Other Patient was instructed by his GI specialist to taper off his medication to see if it would help with his abdominal pain and occasional constipation. Patient reports that it didn't help with either and his pain was unbearable. Abdominal surgery is on hold at this time. The service was provided by ARYAN Wilkins, as part of the ongoing care plan established by Guilherme Moore MD, who was present in the office for direct supervision during the encounter. 11/26/2024 Other The service was provided by ARYAN Wilkins, as part of the ongoing care plan established by Guilherme Moore MD, who was present in the office for direct supervision during the encounter. 12/23/2024 Other The service was provided by Guilherme Moore MD. 02/24/2025 Other The service was provided by ARYAN Wilkins, as part of the ongoing care plan established by Guilherme Moore MD, who was present in the office for direct supervision during the encounter. Patient was provided with a letter at today's visit informing patient that this clinic is closing due to Dr. Moore's shelter; see scanned document. Terminal prescriptions were given to the patient along with tapering instructions. 10/29/2024 Other Patient was instructed by his GI specialist to taper off his medication to see if it would help with his abdominal pain and occasional constipation. Patient reports that it didn't help with either and his pain was unbearable. Abdominal surgery is on hold at this time. The service was provided by ARYAN Wilkins, as part of the ongoing care plan established by Guilherme Moore MD, who was present in the office for direct supervision during the encounter. Plan Of Treatment No Information Insurance Providers Payer Name Payer Address Payer Phone Subscriber Number Group Number Insured Name Patient Relationship to Insured Coverage Start Date Coverage End Date [employer] [address] [address] [place] [address] [id number] Jeremías Edouard Self - patient is the insured Medical (General) History Medical History History ICD Code Chronic pain Neck pain Cervical spondylosis, disc disease, spin al stenosis and spondylolisthesis Low back pain Lumbar spondylosis and disc disease Diabetes mellitus Hypertension Depression Seasonal allergies CAD, history of MIs Tobacco use Chronic obstructive pulmonary disease Pneumonia 10/2021 Sleep disorder with snoring and restless legs (patient declined prior offer for a sleep study and possible treatment) Overweight (history of mild obesity) Surgical History Surgery Date(Month/Year) Ruptured hernia x 3 Left testicle removed Cholecystectomy Tonsillectomy Multiple teeth extracted, pe rformed by [facility] in [place], [place], 03/2023 Hospitalization History Reason Date(Month/Year) Heart attack, treated at [facility], 11/09/23 Bowel obstruction, treated a [facility] in [place], [place], 06/2022 Pneumonia, treated at [facility], 08/04/19 Breathing problems, treated at [facility], 07/23 019
--- NOTE | 2025-05-24 09:40 | ECG_ITS ---
[facility]25[facility]24 Pat Name: Jeremías Edouard Department: Room: Gender: Male Naturopathic Doctor: : [id number] Requested By: Myesha Fields Order Number: [id number] Reading MD: SUMIT EVANS Measurements Intervals [place] Rate: 88 P: 70 [place]: 176 QRS: 72 QRSD: 94 T: 75 QT: 326 QTc: 395 Interpretive Statements SINUS RHYTHM WITH MARKED SINUS ARRHYTHMIA Compared to ECG 02/23/2025 10:22:59 No significant changes Electronically Signed On 05-25-2025 13:56:40 CDT by SUMIT EVANS [email or web address]
--- NOTE | 2025-05-24 09:46 | ED_ITS ---
HPI - SOB/Dyspnea 2 General: Chief Complaint: Shortness of Breath/Dyspnea Stated Complaint: sob Time Seen by Provider: 05/24/25 09:30 Source: patient and EMS Mode of arrival: EMS Limitations: no limitations History of Present Illness: HPI Narrative: 79-year-old male history of COPD does we ar 2 L oxygen at home states that he has had increasing shortness of breath over the last 2 days. States has had increasing productive cough he denies any fever has had some generalized malaise as well. Denies any fevers he denies chest pain to me. Related Data Home Medications ?Medication ?Instructions ?Recorded ?Confirmed sitagliptin phosphate 50 mg tablet 50 mg PO QAM 02/23/25 (Januvia) tamsulosin 0.4 mg capsule (Flomax) 0.4 mg PO QAM 11/1002/23/25 aspirin 81 mg tablet,delayed 81 mg PO QAM 09/04/2303/15 release hydrocodone 10 mg-acetaminophen 1 - 2 tab PO .EVERY 4- 6 HOURS PRN 09/04/23 02/23/25 325 mg tablet Pain ipratropium 20 mcg-albuterol 100 1 puff inhalation Q6H PRN 09/04/23 02/23/25 mcg/actuation mist for inhalation Shortness Of Breath (Combivent Respimat) naloxone 0.4 mg/mL injection 0.4 mg SUBCUT Q3M PRN Opi oid 09/04/23 02/23/25 solution Overdose nitroglycerin 0.4 mg sublingual 0.4 mg sublingual Q5M PRN Chest 09/04/23 02/23/25 tablet (Nitrostat) Pain fluticasone fur. 100 mcg-umeclid 1 inh inhalation RAYNE Y 12/26/23 02/23/25 62.5 mcg-vilant 25 mcg inhalat.powder (Trelegy Ellipta) hydroxyzine HCl 50 mg tablet 50 mg PO BEDTIME PRN Inso mnia 12/26/23 02/23/25 alprazolam 0.25 mg tablet 0.25 mg PO .NIGHTLY PRN Anxi ety 02/23/25 02/23/25 diazepam 5 mg tablet 5 mg PO BEDTIME 02/23/2503/15 ofloxacin 0.3 % ear drops 4 drp otic (ear) BID 5 02/23/25 sertraline 25 mg tablet 25 mg PO DAILY 02/23/2503/15 Previous Rx's ?Medication ?Instructions ?Recorded omeprazole 20 mg capsule,delayed 20 mg PO DAILY 4 week s 11/10/19 release ipratropium 0.5 mg-albuterol 3 mg 3 ml inhalation Q4H PRN shortness 02/23/25 (2.5 mg base)/3 mL nebulization of breath or wheezing #90 mL soln methylprednisolone 4 mg tablets in See Rx Instructions PO .COMPLEX 02/23/25 a dose pack (Medrol (Harrison)) #21 ea Allergies Allergy/AdvReac Type Severity Reaction Status Date / Time buspirone Allergy ADR-Itching Verified 05/24/25 09:36 PFSH ED 2 PFSH: Medical History Non-compliant behavior Acute encephalopathy Diastolic CHF, acute NSTEMI (non-ST elevated myocardial infarction) Acute hypoxic on chronic hypercapnic respiratory failure Acute renal failure (ARF) CHF (congestive heart failure) Acute hypercapnic respiratory failure Smoker Hypertension COPD (chronic obstructive pulmonary disease) Diabetes Surgical History History of cholecystectomy History of carpal tunnel surgery of right wrist H/O hemorrhoidectomy H/O hernia repair Hx of tonsillectomy History of testicular surgery Social History Smoking and tobacco/nicotine status: current every day tobacco/nicotine user cigarettes Packs smoked per day: 1 Years cigarettes smoked: 66 [ Other cigarette details: Started in 1955] Quit status (tobacco/nicotine): considering quitting Second hand smoke exposure: Yes Alcohol intake: never Substance/Drug Use: never Lives independently: Yes Household members: none Marital status: / service: No Current occupational status: retired Pets and animals: No Do you think of yourself as: Straight/Heterosexual Current gender identity: Male Physical Exam 2 Const: COMMON NORMALS: patient oriented x3 HENMT: COMMON NORMALS: normocephalic and atraumatic HEAD & SCALP: n ormocephalic and atraumatic Eye: COMMON NORMALS: Equal, round and reactive pupils present and EOMs intact bilaterally PUPIL: Yes Equal, round and reactive pupils present Neck/C-Spine: COMMON NORMALS: full ROM and supple Chest: COMMONS NORMALS: normal inspection of the chest Resp: COMMON NORMALS: No retractions and No use of accessory muscles EFFORT & INSPECTION: Yes audible wheezes Cardio: COMMON NORMALS: regular rate, regular rhythm and No murmurs present (Cardio) RATE: regular rate RHYTHM: regular rhythm GI: COMMON NORMALS: Normal to inspection, nondistended, normoactive bowel sounds present, Soft to palpation, non-tender and no masses PALPATION: Yes Soft to palpation Extremity: COMMON NORMALS: normal to inspection and full ROM Neuro: COMMON NORMALS: patient oriented x3, moves all extremities and no focal motor deficits Psych: COMMON NORMALS: mental status grossly normal, Normal thought process present and cooperative THOUGHT PROCESS: Normal thought process present Skin: COMMON NORMALS: no rashes or lesions noted and no wounds GENERAL SKIN EXAM: no rashes or lesions noted Course 2 Vital Signs: Vital signs: Vital Signs Pulse Rate 90 05/24/25 09:53 Respiratory Rate 18 05/24/25 09:53 Blood Pressure 130/71 05/24/25 09:28 Pulse Oximetry 95 05/24/25 09:53 Oxygen Delivery Me thod Nasal Cannula 05/24/25 09:53 Oxygen Flow Rate 2 05/24/25 09:53 MDM - SOB/Dyspnea Medical Decision Making Patient presents for shortness of breath patient refused x-ray was refusing any other treatments and became upset and wanted to leave. I did try to get patient to stay but he did sign out AMA. Medical Records I reviewed the patient's medical records. Lab Data I reviewed the patient's lab results. 05/24/25 09:48 05/24/25 09:48 Labs/Radiology: Laboratory Results WBC 13.77 10^3/uL (3.29-11.43) H 05/24/25 09:48 RBC 4.56 10^6/uL (3.85-5.65) 05/24/25 09:48 Hgb 14.20 g/dL (11.27-16.99) 05/24/25 09:48 Hct 42.8 % (37-53) 05/24/25 09:48 MCV 93.9 fl (82-101) 05/24/25 09:48 MCH 31.1 pg (27-33) 05/24/25 09:48 MCHC 33.2 g/dL (30-55) 05/24/25 09:48 RDW 13.7 % (12.1-15.1) 05/24/25 09:48 Plt Count 171 10^3/cmm (157-399) 05/24/25 09:48 MPV 9.3 fL (7.4-10.4) 05/24/25 09:48 Neut % (Auto) 84.2 % 05/24/25 09:48 Lymph % (Auto) 7.9 % 05/24/25 09:48 Thayer % (Auto) 7.1 % 05/24/25 09:48 Eos % (Auto) 0.1 % 05/24/25 09:48 Baso % (Auto) 0.3 % 05/24/25 09:48 Neut # (Auto) 11.58 10^3/uL (1.8-7.7) H 05/24/25 09:48 Lymph # (Auto) 1.1 10^3/uL (0.8-4.8) 05/24/25 09:48 Thayer # (Auto) 1.0 10^3/uL (0.2-0.9) H 05/24/25 09:48 Eos # (Auto) 0.0 10^3/uL (0.0-0.8) 05/24/25 09:48 Baso # (Auto) 0.0 10^3/uL (0.0-0.1) 05/24/25 09:48 Nucleated RBC % (auto) 0 % 05/24/25 09:48 Nucleated RBCs # 0.0 /100WBC 05/24/25 09:48 PT 15.00 SECONDS (12.1-14.9) H 05/24/25 09:48 INR 1.10 (0.8-1.2) 05/24/25 09:48 Specimen Type Arterial 05/24/25 09:58 Sample Site Brachial, right 05/24/25 09:58 ABG pH 7.46 (7.35-7.45) H 05/24/25 09:58 ABG pCO2 45.9 mmHg (35-45) H 05/24/25 09:58 ABG pO2 77.7 mmHg (80.0-100.0) L 05/24/25 09:58 ABG PO2/FiO2 Ratio 277 05/24/25 09:58 ABG HCO3 32.7 mmol/L (22-26) H 05/24/25 09:58 ABG Base Excess 7.7 mmol/L (-2.0-2.0) H 05/24/25 09:58 Jey Test N/a 05/24/25 09:58 Hematocrit 43.4 % (42-52) 05/24/25 09:58 Hgb O2 Saturation 94.7 % (95-100) L 05/24/25 09:58 Carboxyhemoglobin 2.0 %THgb (0.4-20.1) 05/24/25 09:58 Methemoglobin 0.3 % (0.4-1.5) L 05/24/25 09:58 Total Hemoglobin 14.2 g/dL (14-18) 05/24/25 09:58 O2 Delivery Device Nc 05/24/25 09:58 O2 Liters/Min 2.0 % 05/24/25 09:58 FiO2 28.0 % 05/24/25 09:58 Technical Solutions Consultant ID Amh 05/24/25 09:58 Sodium 136 mmol/L (136-145) 05/24/25 09:48 Potassium 3.8 mmol/L (3.5-5.1) 05/24/25 09:48 Chloride 96 mmol/L (98-107) L 05/24/25 09:48 Carbon Dioxide 30 mmol/L (22-29) H 05/24/25 09:48 Anion Gap 13.8 (5-19) 05/24/25 09:48 BUN 9 mg/dL (8-23) 05/24/25 09:48 Creatinine 0.7 mg/dL (0.7-1.2) 05/24/25 09:48 GFR Calculation Not Reportable 05/24/25 09:48 Glucose 157 mg/dL (65-115) H 05/24/25 09:48 Calculated Osmolality 284 mOsm/kg (285-295) L 05/24/25 09:48 Calcium 9.4 mg/dL (8.5-10.5) 05/24/25 09:48 Total Bilirubin 1.1 mg/dL (0.15-1.2) 05/24/25 09:48 AST 13 U/L (0-40) 05/24/25 09:48 ALT < 5 U/L (0-41) 05/24/25 09:48 Alkaline Phosphatase 82 U/L (40-130) 05/24/25 09:48 Troponin T Baseline 37 ng/L (0-15) H 05/24/25 09:48 NT-Pro-B Natriuret Pep 899 pg/mL (0-450) H 05/24/25 09:48 Total Protein 6.6 g/dL (6.6-8.7) 05/24/25 09:48 Albumin 3.6 g/dL (3.5-5.2) 05/24/25 09:48 Globulin 3.0 g/dL (1.3-4.6) 05/24/25 09:48 All radiology interpretation(s) finalized by discharge EKG Data EKG 1: I personally reviewed and interpreted this EKG as follows: EKG Interpretation Date: 05/24/25 EKG interpretation time: 09:40 Interpretation: nsr hr [address] elevation qrs 94 qtc 371 Discharge Plan Discharge Condition: Stable Prescriptions: No Action tamsulosin [Flomax] 0.4 mg Capsule 0.4 mg PO QAM Januvia 50 mg Tablet 50 mg PO QAM omeprazole 20 mg capsule,delayed release(DR/EC) 20 mg PO DAILY 28 Days 1RF hydrocodone-acetaminophen 10-325 mg tablet 1 - 2 tab PO .EVERY 4-6 HOURS PRN (Reason: Pain) aspirin 81 mg Tablet,Delayed Release (Dr/Ec) 81 mg PO QAM Combivent Respimat 20-100 mcg/actuation mist 1 puff INHALATION Q6H PRN (Reason: Shortness Of Breath) naloxone 0.4 mg/mL Solution 0.4 mg SUBCUT Q3M PRN (Reason: Opioid Overdose) Rx Instructions: NTExceed 10 mg total dose/episode nitroglycerin [Nitrostat] 0.4 mg Tablet, Sublingual 0.4 mg SUBLINGUAL Q5M PRN (Reason: Chest Pain) Rx Instructions: do not exceed 3 doses per episode hydroxyzine HCl 50 mg tablet 50 mg PO BEDTIME PRN (Reason: Insomnia) Trelegy Ellipta 100-62.5-25 mcg blister with device 1 inh INHALATION DAILY alprazolam 0.25 mg tablet 0.25 mg PO .NIGHTLY PRN (Reason: Anxiety) ofloxacin 0.3 % drops 4 drp otic (ear) BID sertraline 25 mg tablet 25 mg PO DAILY diazepam 5 mg tablet 5 mg PO BEDTIME ipratropium-albuterol 0.5 mg-3 mg(2.5 mg base)/3 mL solution for nebulization 3 ml inhalation Q4H PRN (Reason: shortness of breath or wheezing) Qty: 90 0RF methylprednisolone [Medrol (Harrison)] 4 mg tablets,dose pack See Rx Instructions .ROUTE .COMPLEX Qty: 21 0RF Rx Instructions: orally per package directions Referrals: Cornelia Ayala DO [Primary Care Provider, Family Practice] Print Language: German Coding Level of Care Code ED 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
[2025-05-24 09:53] VITALS: PULSE 90; RESP 18; O2SAT 95
[2025-05-24 09:54] LABS: Hematocrit 42.8 % (37-53); Hemoglobin 14.20 g/dL (11.27-16.99); Mean Corpuscular HGB Conc 33.2 g/dL (30-55); Mean Corpuscular Hemoglobin 31.1 pg (27-33); Mean Corpuscular Volume 93.9 fl (82-101); Nucleated Red Blood Cells % 0 %; Platelet Count 171 10^3/cmm (157-399); Red Blood Count 4.56 10^6/uL (3.85-5.65); White Blood Count 13.77 10^3/uL (3.29-11.43)
[2025-05-24 10:07] LABS: INR 1.10 (0.8-1.2); Prothrombin Time 15.00 SECONDS (12.1-14.9)
[2025-05-24 10:10] LABS: ABG PCO2 45.9 mmHg (35-45); ABG PH Result 7.46 (7.35-7.45); Arterial Blood Gas Hematocrit 43.4 % (42-52); Blood Gas LPM 2.0 %; Blood Gas Operator Identificat AMH; Blood Gas Sample Site Brachial, right; Blood Gas Sample Type Arterial; Carboxyhemoglobin 2.0 %THgb (0.4-20.1); HCO3 ABG 32.7 mmol/L (22-26); Methemoglobin 0.3 % (0.4-1.5); PO2 ABG 77.7 mmHg (80.0-100.0); PO2 FiO2 Ratio Arterial Blood 277
[2025-05-24 10:12] LABS: Troponin(5th) Baseline 37 ng/L (0-15)
[2025-05-24 10:20] LABS: Alanine Aminotransferase < 5 U/L (0-41); Albumin Level 3.6 g/dL (3.5-5.2); Alkaline Phosphatase 82 U/L (40-130); Anion Gap 13.8 (5-19); Aspartate Amino Transferase 13 U/L (0-40); Blood Urea Nitrogen 9 mg/dL (8-23); Calcium 9.4 mg/dL (8.5-10.5); Carbon Dioxide 30 mmol/L (22-29); Chloride 96 mmol/L (98-107); Creatinine Clr Calc Pharmacy 82.2994; Globulin 3.0 g/dL (1.3-4.6); Glucose 157 mg/dL (65-115); NT Pro B Type Natriuretic Pept 899 pg/mL (0-450); Osmolality Calculated 284 mOsm/kg (285-295); Potassium 3.8 mmol/L (3.5-5.1); Sodium 136 mmol/L (136-145); Total Protein 6.6 g/dL (6.6-8.7)
--- NOTE | 2025-05-24 10:29 | PC.NURSE ---
this RN attempted to give pt ordered meds, pt refused after this RN explained the medication. he states 'if that aint my pain meds im leaving here.' pt also refused XR, this RN educated pt on the need for medication and imaging and pt refused. pt states 'you people are no help. i need my pain medicine i been on them for 15 years and i didnt take them this morning'. this RN informed the pt that orders are put in by the doctor and he states 'yeah you people dont care about nobodys pain. i wont be back here and thats not a threat its a promise. i wont come back here.'. pt given and explained AMA papers, papers signed, family called to give pt a ride home.
== END 2025-05-24 10:45 | disposition left against medical advice (07) ==
PROVIDERS: Emergency Provider Emergency Medicine; PCP Family Medicine
DX: Z53.21 Procedure and treatment not carried out due to patient leaving prior to being seen by health care provider (principal); R06.02 Shortness of breath; Z79.82 Long term (current) use of aspirin; F17.210 Nicotine dependence, cigarettes, uncomplicated; J44.9 Chronic obstructive pulmonary disease, unspecified; I11.0 Hypertensive heart disease with heart failure; I50.31 Acute diastolic (congestive) heart failure
CPT/HCPCS: 36415; 36600; 80053; 82805; 83880; 84484; 85025; 85610; 93005; 94640; 99285; J9999